=== PATIENT | female | born 1945 | race Caucasian/White ===

== ENCOUNTER 2019-09-28 09:52 | Outpatient (CLI) | payer MEDICARE, SELFPAY ==
--- NOTE | ~2019-09-28 | MMUS_ITS ---
EXAMINATION: MM diagnostic karly LT w jaye, US breast LT complete HISTORY: Six-month follow-up of probably benign left breast masses TECHNIQUE: Additional 3-D tomosynthesis images of the left breast were performed and synthetic 2-D im ages were generated. CAD analysis was submitted and interpreted. High resolution complete left breast ultrasound was performed. COMPARISON: 03/26/2019 bilateral diagnostic digital mammogram and left breast ultrasound examination BREAST PARENCHYMAL COMPOSITION: The breasts are heterogeneously dense, which may obscure small masses . FINDINGS: MAMMOGRAPHIC FINDINGS: There are scattered circumscribed masses measuring up to approximately 7 mm dimension. Occasional benign calcifications. No suspicious mass, architectural distortion, malignant calcification, skin thickening or retraction is evident. No apparent significant mammographic change since 03/19/2019 is noted. No significant new or developin g density is evident. ULTRASOUND: Numerous circumscribed parallel oval hypoechoic and sonolucent lesions are scattered throughout the l eft breast. These include simple cyst, septated cyst and benign-appearing hypoechoic solid lesions. No suspicious mass, vascularity or shadowing is evident. IMPRESSION: 1. No mammographic evidence of malignancy 2. Routine annual mammographic screening is recommended. BI-RADS Category 2: Benign finding(s). Reviewed, dictated and finalized at location A. OGRAPH MACHINE OPERATOR IMPRESSION: 1. No mammographic evidence of malignancy 2. Routine annual mammographic screening is recommended. BI-RADS Category 2: Benign finding(s).
== END 2019-09-28 09:53 | disposition home or self-care (01) ==
PROVIDERS: PCP Family Medicine; Visit Provider Family Medicine
DX: R92.8 Other abnormal and inconclusive findings on diagnostic imaging of breast (principal)
CPT/HCPCS: 76641; 77061; 77065; G0279

== ENCOUNTER 2019-11-02 07:44 | Outpatient (CLI) | payer MEDICARE, SELFPAY ==
[2019-11-02 07:56] LABS: Basophils Absolute Auto 0.03 K/mm3 (0.00-0.10); Basophils Percent Auto 0.4 % (0.0-1.0); Eosinophils Percent Auto 5.3 % (1.0-6.0); Hematocrit 41.8 % (35.0-42.0); Hemoglobin 13.8 g/dL (11.7-13.8); Immature Granulocyte Absolute 0.03 K/mm3 (0.00-0.00); Immature Granulocyte Percent A 0.4 % (0.0-0.0); Lymphocytes Absolute Auto 2.45 K/mm3 (1.10-4.50); Lymphocytes Percent Auto 32.2 % (18.0-42.0); Mean Corpuscular Hemoglobin 30.9 pg (27.0-31.0); Mean Corpuscular Volume 93.5 fL (78.0-102.0); Mean Platelet Volume 11.1 fl (9.2-11.8); Monocytes Absolute Auto 0.79 K/mm3 (0.10-0.90); Monocytes Percent Auto 10.4 % (2.0-11.0); Neutrophils Absolute Auto 3.9 K/mm3 (1.7-7.2); Neutrophils Percent Auto 51.3 % (50.0-70.0); Platelet Count Result 211 K/mm3 (150-420); Red Blood Count 4.47 M/mm3 (4.20-5.40); Red Cell Distribution Width 13.7 % (11.6-14.4); White Blood Count 7.6 K/mm3 (4.8-10.8)
[2019-11-02 08:09] LABS: Hemoglobin A1C 6.7 % (<5.7)
[2019-11-02 08:15] LABS: Creatinine Urine 133.23 mg/dL (40-278)
[2019-11-02 08:16] LABS: MALB Creatinine Ratio 300.2 mg/g (0-30); Microalbumin Urine Random > 400.0 mg/L
[2019-11-02 09:24] LABS: Anion Gap 14.5 mmol/L (7-16); Blood Urea Nitrogen 17 mg/dL (7-18); Calcium 9.2 mg/dL (8.5-10.1); Carbon Dioxide 25 mmol/L (21-32); Chloride 105 mmol/L (98-108); Estimated Glomerular Filt Rate > 60; Free T4 Free Thyroxine 0.87 ng/dL (0.76-1.46); Glucose 110 mg/dL (70-99); Osmolality Calculated 292 mOsm/kg (285-295); Potassium 4.5 mmol/L (3.5-5.1); Sodium 140 mmol/L (136-145); Thyroid Stimulating Hormone 6.63 uIU/mL (0.36-3.74)
[2019-11-06 03:54] LABS: Thyroglobulin 0.4 ng/mL (2.8-40.9); Thyroglobulin Antibodies 625 IU/mL (<=1); Thyroid Peroxidase Antibodies 1093 IU/mL (<9)
== END 2019-11-02 07:45 | disposition home or self-care (01) ==
PROVIDERS: PCP Family Medicine; Visit Provider Family Medicine
DX: R94.6 Abnormal results of thyroid function studies (principal); I10 Essential (primary) hypertension; R73.01 Impaired fasting glucose
CPT/HCPCS: 36415; 80048; 82043; 83036; 84432; 84439; 84443; 85025; 86376; 86800

== ENCOUNTER 2019-11-12 09:55 | Outpatient (CLI) | payer MEDICARE, SELFPAY ==
--- NOTE | ~2019-11-12 | US_ITS ---
EXAMINATION: US retroperitoneal comp DATE: 11/12/2019 11:11 INDICATION: Proteinuria. TECHNIQUE: Multiple ultrasound grayscale images of the kidneys were obtained. COMPARISON: None. FINDINGS: The right kidney measures 11.4 x 6.4 x 6.0 cm. The left kidney measures 12.8 x 5.4 x 6.7 cm. The kidn eys demonstrate normal parenchymal echogenicity. There is no hydronephrosis. The bladder is normal. T here is diffuse hepatic steatosis. IMPRESSION: 1. Normal kidneys. No hydronephrosis. 2. Diffuse hepatic steatosis. Reviewed, dictated and finalized at location A.
[2019-11-12 10:18] LABS: Add Urine Microscopic? YES; Appearance Urine Clear (Clear); Bilirubin Urine Negative (Negative); Blood Urine 1+ (Negative); Color Urine Yellow (Yellow); Glucose Urine UA Negative (Negative); Ketones Urine Negative (Negative); Leukocyte Esterase Ur Negative (Negative); Nitrate Urine Negative (Negative); Protein Urine 1+ (Negative); Specific Grav Ur 1.025 (1.010-1.020); Urobilinogen Urine 0.2 mg/dL (0.2-1.0)
[2019-11-12 10:37] LABS: Bacteria Urine 2+ /hpf; Squamous Epithelial Cell Urine Few /hpf (Few); WBC Urine 0-3 /hpf (0-3)
[2019-11-12 10:47] LABS: Hemoglobin A1C 6.4 % (<5.7)
[2019-11-12 10:52] LABS: Creatinine Urine 75.52 mg/dL (40-278); Total Protein Urine Random 56.5 mg/dL (0.0-11.9)
[2019-11-12 11:00] LABS: MALB Creatinine Ratio 406.6 mg/g (0-30); Microalbumin Urine Random 307.1 mg/L
[2019-11-12 11:04] LABS: CRP 0.2 mg/dL (0.0-0.9); Cholesterol 201 mg/dL (0-200); HDL Direct 67 mg/dL (40-60); LDL Cholesterol Calculated 114 mg/dL (<130); Triglycerides 99 mg/dL (0-150)
[2019-11-12 11:39] LABS: Erythrocyte Sedimentation Rate 21 mm/hr (0-20)
[2019-11-14 09:51] LABS: ANA Cascade Screen Negative (Negative)
[2019-11-14 11:47] LABS: ANCA Screen Negative (Negative)
[2019-11-15 04:42] LABS: Albumin 4.1 g/dL (3.8-4.8); Alpha 1 Globulin 0.3 g/dL (0.2-0.3); Alpha 2 Globulin 0.8 g/dL (0.5-0.9); Beta 1 Globulin 0.5 g/dL (0.4-0.6); Protein, Total 7.1 g/dL (6.1-8.1)
[2019-11-16 19:45] LABS: Anti Glomerular Basement Memb <1.0 AI (<1.0)
[2019-11-16 23:13] LABS: Creatinine, Random Urine 75 mg/dL (20-275); Total Protein/Creatinine Ratio 653 mg/g creat (21-161)
== END 2019-11-12 09:56 | disposition home or self-care (01) ==
LOC: CHSLAB 09:59
PROVIDERS: PCP Family Medicine; Visit Provider Family Medicine
DX: R80.9 Proteinuria, unspecified (principal); I10 Essential (primary) hypertension; R73.01 Impaired fasting glucose
CPT/HCPCS: 36415; 76770; 80061; 81001; 82043; 82570; 83036; 83520; 84155; 84156; 84165; 84166; 85652; 86021; 86038; 86140

== ENCOUNTER 2020-04-20 08:17 | Outpatient (CLI) | payer MEDICARE, SELFPAY ==
[2020-04-20 08:35] LABS: Basophils Absolute Auto 0.03 K/mm3 (0.00-0.10); Basophils Percent Auto 0.4 % (0.0-1.0); Eosinophils Absolute Auto 0.32 K/mm3 (0.02-0.50); Eosinophils Percent Auto 3.9 % (1.0-6.0); Hematocrit 46.1 % (35.0-42.0); Hemoglobin 14.8 g/dL (11.7-13.8); Immature Granulocyte Absolute 0.02 K/mm3 (0.00-0.00); Immature Granulocyte Percent A 0.2 % (0.0-0.0); Lymphocytes Absolute Auto 2.36 K/mm3 (1.10-4.50); Lymphocytes Percent Auto 28.7 % (18.0-42.0); Mean Corpuscular HGB Conc 32.1 g/dL (32.0-36.0); Mean Corpuscular Hemoglobin 30.3 pg (27.0-31.0); Mean Corpuscular Volume 94.5 fL (78.0-102.0); Mean Platelet Volume 10.9 fl (9.2-11.8); Monocytes Absolute Auto 0.81 K/mm3 (0.10-0.90); Monocytes Percent Auto 9.9 % (2.0-11.0); Neutrophils Absolute Auto 4.7 K/mm3 (1.7-7.2); Neutrophils Percent Auto 56.9 % (50.0-70.0); Platelet Count Result 262 K/mm3 (150-420); Red Blood Count 4.88 M/mm3 (4.20-5.40); Red Cell Distribution Width 13.8 % (11.6-14.4); White Blood Count 8.2 K/mm3 (4.8-10.8)
[2020-04-20 08:47] LABS: Hemoglobin A1C 6.1 % (<5.7)
[2020-04-20 09:22] LABS: Add Urine Microscopic? YES; Appearance Urine Clear (Clear); Bilirubin Urine Negative (Negative); Blood Urine Negative (Negative); Color Urine Yellow (Yellow); Glucose Urine UA Negative (Negative); Ketones Urine Negative (Negative); Leukocyte Esterase Ur Negative (Negative); Nitrate Urine Negative (Negative); Protein Urine 2+ (Negative); Specific Grav Ur 1.025 (1.010-1.020); Urobilinogen Urine 0.2 mg/dL (0.2-1.0); pH Urine 5.5 (5.0-8.0)
[2020-04-20 09:27] LABS: Bacteria Urine 2+ /hpf; Mucus Urine Few /lpf; RBC Urine 0-2 /hpf (0-2); Squamous Epithelial Cell Urine Moderate /hpf (Few); WBC Urine 0-3 /hpf (0-3)
[2020-04-20 10:11] LABS: Alanine Aminotransferase 27 U/L (14-59); Albumin Level 3.8 g/dL (3.4-5.0); Alkaline Phosphatase 87 U/L (46-116); Anion Gap 6 mmol/L (8-16); Aspartate Amino Transferase 14 U/L (15-37); Bilirubin Direct 0.1 mg/dL (0-0.2); Bilirubin,Total 0.4 mg/dL (0.00-1.00); Blood Urea Nitrogen 16 mg/dL (7-18); Calcium 9.1 mg/dL (8.5-10.1); Carbon Dioxide 28 mmol/L (21-32); Chloride 104 mmol/L (98-108); Estimated Glomerular Filt Rate > 60; Free T4 Free Thyroxine 1.34 ng/dL (0.76-1.46); Glucose 123 mg/dL (70-99); Osmolality Calculated 288 mOsm/kg (285-295); Potassium 4.3 mmol/L (3.5-5.1); Sodium 138 mmol/L (136-145); Total Protein 7.2 g/dL (6.4-8.2)
[2020-04-20 10:13] LABS: Microalbumin Urine Random > 400.0 mg/L
[2020-04-20 10:14] LABS: Creatinine Urine 193.67 mg/dL (40-278); MALB Creatinine Ratio 206.5 mg/g (0-30); Total Protein Urine Random 89.9 mg/dL (0.0-11.9)
== END 2020-04-20 08:18 | disposition home or self-care (01) ==
PROVIDERS: PCP Family Medicine
DX: R94.6 Abnormal results of thyroid function studies (principal); E03.9 Hypothyroidism, unspecified; I12.9 Hypertensive chronic kidney disease with stage 1 through stage 4 chronic kidney disease, or unspecified chronic kidney disease; N18.3 Chronic kidney disease, stage 3 (moderate); R80.1 Persistent proteinuria, unspecified; K76.0 Fatty (change of) liver, not elsewhere classified; R73.03 Prediabetes
CPT/HCPCS: 36415; 80048; 80076; 81001; 82043; 82570; 83036; 84156; 84439; 84443; 85025

== ENCOUNTER 2020-09-27 12:45 | Outpatient (CLI) | payer MEDICARE, SELFPAY | END 2020-09-27 12:46 | disposition home or self-care (01) | LOC: CHSLAB 12:48 | PROVIDERS: PCP Family Medicine; Visit Provider Specialist | DX: C44.729 Squamous cell carcinoma of skin of left lower limb, including hip (principal) | CPT/HCPCS: 88305 ==

== ENCOUNTER 2020-10-07 08:43 | Outpatient (CLI) | payer MEDICARE, SELFPAY ==
[2020-10-07 09:13] LABS: Basophils Absolute Auto 0.02 K/mm3 (0.00-0.10); Basophils Percent Auto 0.2 % (0.0-1.0); Eosinophils Absolute Auto 0.31 K/mm3 (0.02-0.50); Eosinophils Percent Auto 3.8 % (1.0-6.0); Hematocrit 44.9 % (35.0-42.0); Hemoglobin 14.3 g/dL (11.7-13.8); Immature Granulocyte Absolute 0.02 K/mm3 (0.00-0.00); Immature Granulocyte Percent A 0.2 % (0.0-0.0); Lymphocytes Absolute Auto 2.49 K/mm3 (1.10-4.50); Lymphocytes Percent Auto 30.8 % (18.0-42.0); Mean Corpuscular HGB Conc 31.8 g/dL (32.0-36.0); Mean Corpuscular Hemoglobin 29.9 pg (27.0-31.0); Mean Corpuscular Volume 93.7 fL (78.0-102.0); Mean Platelet Volume 10.9 fl (9.2-11.8); Monocytes Absolute Auto 0.73 K/mm3 (0.10-0.90); Neutrophils Absolute Auto 4.5 K/mm3 (1.7-7.2); Platelet Count Result 238 K/mm3 (150-420); Red Blood Count 4.79 M/mm3 (4.20-5.40); Red Cell Distribution Width 13.6 % (11.6-14.4); White Blood Count 8.1 K/mm3 (4.8-10.8)
[2020-10-07 09:22] LABS: Hemoglobin A1C 6.4 % (<5.7)
[2020-10-07 09:56] LABS: Alanine Aminotransferase 31 U/L (14-59); Albumin Level 3.7 g/dL (3.4-5.0); Alkaline Phosphatase 92 U/L (46-116); Anion Gap 8 mmol/L (8-16); Aspartate Amino Transferase 17 U/L (15-37); Bilirubin,Total 0.5 mg/dL (0.00-1.00); Blood Urea Nitrogen 20 mg/dL (7-18); Calcium 9.4 mg/dL (8.5-10.1); Carbon Dioxide 27 mmol/L (21-32); Chloride 103 mmol/L (98-108); Cholesterol 194 mg/dL (0-200); Estimated Glomerular Filt Rate > 60; Glucose 120 mg/dL (70-99); HDL Direct 68 mg/dL (40-60); LDL Cholesterol Calculated 105 mg/dL (<130); Osmolality Calculated 289 mOsm/kg (285-295); Phosphorus 3.8 mg/dL (2.6-4.7); Potassium 4.6 mmol/L (3.5-5.1); Sodium 138 mmol/L (136-145); Thyroid Stimulating Hormone 1.13 uIU/mL (0.36-3.74); Triglycerides 103 mg/dL (0-150)
[2020-10-07 10:54] LABS: Creatinine Urine 109.46 mg/dL (40-278); Total Protein Urine Random 66.3 mg/dL (0.0-11.9); Ur Ttl Prot Creatinine Ratio 0.61 mg/mg (0-0.20)
== END 2020-10-07 08:44 | disposition home or self-care (01) ==
LOC: CHSLAB 08:46
PROVIDERS: PCP Family Medicine; Visit Provider Internal Medicine Nephrology
DX: R73.01 Impaired fasting glucose (principal); E78.2 Mixed hyperlipidemia; I10 Essential (primary) hypertension; E03.9 Hypothyroidism, unspecified; R80.9 Proteinuria, unspecified
CPT/HCPCS: 36415; 80053; 80061; 82570; 83036; 84100; 84156; 84443; 85025

== ENCOUNTER 2020-10-21 09:18 | Outpatient (CLI) | payer MEDICARE, SELFPAY ==
--- NOTE | ~2020-10-21 | CT_ITS ---
EXAMINATION: CT lung screening DATE: 10/21/2020 09:47 INDICATION: History of tobacco dependence TECHNIQUE: Computed tomography (CT) of the chest was performed without intravenous contrast. The dose -length product was 160.93 mGy-cm. Automated exposure control and iterative reconstruction technique were employed. COMPARISON: CT dated 12/18/2018 FINDINGS: Heart size is normal. Mild atherosclerosis no lymphadenopathy. Small hiatal hernia. No sign ificant pleural or pericardial effusion. The upper abdomen is unremarkable. Small hiatal hernia. Ther e are multiple small pulmonary nodules predominantly in the upper lobe, largest measuring 4 mm, uncha nged. There is a stable 6 mm fissural nodule in the right, likely benign lymph node. There is mild th oracic spondylosis. Accentuated thoracic kyphosis. IMPRESSION: 1. Lung-RADS category 2: Benign appearance or behavior. Continue annual screening with noncontrast lo w-dose chest CT in 12 months. Reviewed, dictated and finalized at location B. IMPRESSION: 1. Lung-RADS category 2: Benign appearance or behavior. Continue annual screeni ng with noncontrast low-dose chest CT in 12 months.
== END 2020-10-21 09:19 | disposition home or self-care (01) ==
LOC: CHSIMG 09:19
PROVIDERS: PCP Family Medicine; Visit Provider Family Medicine
DX: Z12.2 Encounter for screening for malignant neoplasm of respiratory organs (principal); Z87.891 Personal history of nicotine dependence
CPT/HCPCS: 71271

== ENCOUNTER 2020-11-03 08:40 | Outpatient (CLI) | payer MEDICARE, SELFPAY ==
--- NOTE | ~2020-11-03 | MM_ITS ---
EXAMINATION: MM screening [facility] BI w jaye HISTORY: Screening mammogram TECHNIQUE: Craniocaudal and mediolateral oblique 3-D tomosynthesis images were obtained and synthetic 2-D images were generated. CAD analysis was submitted and interpreted. COMPARISON: 09/28/2019 diagnostic left digital mammogram and complete left breast ultrasound 03/26/2019 bilateral diagnostic digital mammogram and left breast ultrasound 03/19/2019, 03/18/2018 bilateral digital screening mammogram BREAST PARENCHYMAL COMPOSITION: There are scattered areas of fibroglandular density. FINDINGS: There are scattered bilateral benign calcifications. There is no evidence of suspicious mas s, calcification, or architectural distortion to suggest malignancy in either breast. There has been no suspicious interval change. IMPRESSION: 1. No mammographic evidence of malignancy. 2. Recommend routine screening mammography in one year. BI-RADS Category 2: Benign finding(s). Reviewed, dictated and finalized at location A.
== END 2020-11-03 08:41 | disposition home or self-care (01) ==
LOC: CHSIMG 08:41
PROVIDERS: PCP Family Medicine; Visit Provider Family Medicine
DX: Z12.31 Encounter for screening mammogram for malignant neoplasm of breast (principal)
CPT/HCPCS: 77063; 77067

== ENCOUNTER 2021-04-10 08:11 | Outpatient (CLI) | payer MEDICARE, SELFPAY ==
[2021-04-10 08:40] LABS: Basophils Absolute Auto 0.03 K/mm3 (0.00-0.10); Basophils Percent Auto 0.4 % (0.0-1.0); Eosinophils Absolute Auto 0.25 K/mm3 (0.02-0.50); Eosinophils Percent Auto 3.1 % (1.0-6.0); Hematocrit 43.6 % (35.0-42.0); Hemoglobin 14.3 g/dL (11.7-13.8); Immature Granulocyte Absolute 0.03 K/mm3 (0.00-0.00); Immature Granulocyte Percent A 0.4 % (0.0-0.0); Lymphocytes Absolute Auto 2.26 K/mm3 (1.10-4.50); Lymphocytes Percent Auto 28.3 % (18.0-42.0); Mean Corpuscular HGB Conc 32.8 g/dL (32.0-36.0); Mean Corpuscular Hemoglobin 30.4 pg (27.0-31.0); Mean Corpuscular Volume 92.6 fL (78.0-102.0); Mean Platelet Volume 10.9 fl (9.2-11.8); Monocytes Absolute Auto 0.73 K/mm3 (0.10-0.90); Monocytes Percent Auto 9.1 % (2.0-11.0); Neutrophils Absolute Auto 4.7 K/mm3 (1.7-7.2); Neutrophils Percent Auto 58.7 % (50.0-70.0); Platelet Count Result 216 K/mm3 (150-420); Red Blood Count 4.71 M/mm3 (4.20-5.40); Red Cell Distribution Width 14.1 % (11.6-14.4)
[2021-04-10 09:08] LABS: Albumin Level 3.6 g/dL (3.4-5.0); Anion Gap 10 mmol/L (8-16); Blood Urea Nitrogen 18 mg/dL (7-18); Carbon Dioxide 26 mmol/L (21-32); Chloride 105 mmol/L (98-108); Estimated Glomerular Filt Rate > 60; Glucose 123 mg/dL (70-99); Osmolality Calculated 294 mOsm/kg (285-295); Phosphorus 3.5 mg/dL (2.6-4.7); Potassium 4.3 mmol/L (3.5-5.1); Sodium 141 mmol/L (136-145)
[2021-04-10 09:09] LABS: Total Protein Urine Random 66.7 mg/dL (0.0-11.9); Ur Ttl Prot Creatinine Ratio 0.44 mg/mg (0-0.20)
== END 2021-04-10 08:12 | disposition home or self-care (01) ==
LOC: CHSLAB 08:14
PROVIDERS: PCP Family Medicine; Visit Provider Internal Medicine Nephrology
DX: R80.9 Proteinuria, unspecified (principal); I10 Essential (primary) hypertension
CPT/HCPCS: 36415; 80069; 82570; 84156; 85025

== ENCOUNTER 2021-06-06 09:59 | Outpatient (CLI) | payer MEDICARE, SELFPAY ==
--- NOTE | ~2021-06-06 | XR_ITS ---
EXAMINATION: XR hip LT min 2V DATE: 06/06/2021 13:24 INDICATION: Low back pain and right hip pain. TECHNIQUE: 2 views of left hip were obtained. COMPARISON: None. FINDINGS: Bone alignment is normal. No fracture. There is a 2.7 cm sclerotic lesion in left femoral n lizzy in a pattern of chondroid matrix. There is moderate left hip osteoarthritis. Osteitis pubis is no jakob. There are surgical clips in the pelvis. IMPRESSION: 1. Moderate left hip osteoarthritis. 2. 2.7 cm sclerotic lesion in left femoral neck, most likely an enchondroma. Reviewed, dictated and finalized at location A. INE HOSTLER
--- NOTE | ~2021-06-06 | XR_ITS ---
XR hip RT min 2V 06/06/2021 15:02 Indication: Right hip pain Procedure: 2 views right hip Comparison: No prior studies for comparison. Findings: There is mild osteoarthritis of the right hip. No fracture, subluxation or dislocation. No significant soft tissue abnormality. There are surgical changes in the pelvis. There is mild osteitis pubis. Sacral foramen are symmetric. Impression: 1: Mild osteoarthritis of the right hip. Reviewed, dictated and finalized at location A. ER Impression: 1: Mild osteoarthritis of the right hip.
--- NOTE | ~2021-06-06 | XR_ITS ---
EXAMINATION: XR lumbar spine 2-3V DATE: 06/06/2021 10:32 INDICATION: Low back pain TECHNIQUE: Anteroposterior and lateral views of the lumbar spine, and cone-down lateral view of the l umbosacral junction were obtained. COMPARISON: 07/02/2011 FINDINGS: The vertebral body heights and alignment are normal. There is no fracture. There is severe loss of intervertebral disc space height throughout the lumbar spine with interval worsening since th e comparison examination. Severe facet osteoarthritis is present in the lower lumbar spine. Small deg enerative osteophytes project from the anterior endplates of multiple vertebral bodies. Calcified ath erosclerosis is noted. There are surgical changes in the pelvis and right upper quadrant. IMPRESSION: 1. Severe lumbar spondylosis with slight interval worsening. Reviewed, dictated and finalized at location B. TROMECHANICAL ASSEMBLY TECHNICIAN
== END 2021-06-06 10:00 | disposition home or self-care (01) ==
LOC: CHSLAB 10:00
PROVIDERS: PCP Family Medicine; Visit Provider Family Medicine
DX: M25.551 Pain in right hip (principal); M54.50 Low back pain, unspecified
CPT/HCPCS: 72100; 73502

== ENCOUNTER 2021-06-13 09:55 | Outpatient (CLI) | payer MEDICARE, SELFPAY ==
--- NOTE | ~2021-06-13 | MR_ITS ---
EXAMINATION: MR lumbar spine wo con DATE: 06/13/2021 11:37 INDICATION: Low back pain. TECHNIQUE: Magnetic resonance imaging (MRI) of the lumbar spine was performed without intravenous con trast. Sequences included sagittal T2-weighted FSE, sagittal T2-weighted FS FSE, sagittal T1-weighted FSE, and axial T2-weighted FSE. COMPARISON: Lumbar spine radiographs 06/06/2021 FINDINGS: There is 9 degrees levocurvature of thoracolumbar spine. There is 3 mm retrolisthesis of T1 2 on L1 and 3 mm anterolisthesis of L5 on S1. Vertebral body heights are normal. There is severely de creased disc height from T12-L1 through L4-L5 and moderately decreased disc height at L5-S1. There is ligamentum flavum hypertrophy at the disc levels in lumbar spine. The distal spinal cord signal inte nsity is normal. The conus medullaris is at L1. The following disc levels are specifically discussed: T12-L1: The disc is bulging. There is mild bilateral facet joint osteoarthritis. There is moderate ri ght and mild left neural foraminal stenosis. There is mild central canal stenosis. L1-L2: The disc is bulging and has an annular fissure. There is moderate bilateral facet joint osteoa rthritis. There is moderate right and mild left neural foraminal stenosis. There is mild central krishna l stenosis. L2-L3: The disc is bulging and has an annular fissure. There is moderate bilateral facet joint osteoa rthritis. There is mild right and moderate left neural foraminal stenosis. There is mild central krishna l stenosis. L3-L4: The disc is bulging and has an annular fissure. There is severe bilateral facet joint osteoart hritis. There is mild right and moderate left neural foraminal stenosis. There is mild central canal stenosis. There is moderate stenosis of left lateral recess. L4-L5: The disc is bulging and has an annular fissure. There is severe bilateral facet joint osteoart hritis. There is moderate bilateral neural foraminal stenosis. There is moderate central canal stenos is. L5-S1: The disc is bulging. There is severe bilateral facet joint osteoarthritis. There is mild bilat eral neural foraminal stenosis. There is mild central canal stenosis. IMPRESSION: 1. Severe lumbar spondylosis. Reviewed, dictated and finalized at location A. T MAIL CLERK
== END 2021-06-13 09:56 | disposition home or self-care (01) ==
LOC: CHSIMG 09:56
PROVIDERS: PCP Family Medicine; Visit Provider Family Medicine
DX: M54.50 Low back pain, unspecified (principal); M47.816 Spondylosis without myelopathy or radiculopathy, lumbar region
CPT/HCPCS: 72148

== ENCOUNTER 2021-10-16 08:29 | Outpatient (CLI) | payer MEDICARE, SELFPAY ==
[2021-10-16 08:49] LABS: Basophils Absolute Auto 0.02 K/mm3 (0.00-0.10); Basophils Percent Auto 0.3 % (0.0-1.0); Eosinophils Absolute Auto 0.34 K/mm3 (0.02-0.50); Eosinophils Percent Auto 5.3 % (1.0-6.0); Hematocrit 45.5 % (35.0-42.0); Hemoglobin 14.8 g/dL (11.7-13.8); Immature Granulocyte Absolute 0.01 K/mm3 (0.00-0.00); Immature Granulocyte Percent A 0.2 % (0.0-0.0); Lymphocytes Absolute Auto 2.23 K/mm3 (1.10-4.50); Lymphocytes Percent Auto 34.5 % (18.0-42.0); Mean Corpuscular HGB Conc 32.5 g/dL (32.0-36.0); Mean Corpuscular Volume 95.4 fL (78.0-102.0); Mean Platelet Volume 10.6 fl (9.2-11.8); Monocytes Absolute Auto 0.69 K/mm3 (0.10-0.90); Monocytes Percent Auto 10.7 % (2.0-11.0); Neutrophils Absolute Auto 3.2 K/mm3 (1.7-7.2); Platelet Count Result 241 K/mm3 (150-420); Red Blood Count 4.77 M/mm3 (4.20-5.40); Red Cell Distribution Width 13.5 % (11.6-14.4); White Blood Count 6.5 K/mm3 (4.8-10.8)
[2021-10-16 09:51] LABS: Alanine Aminotransferase 30 U/L (14-59); Albumin Level 3.6 g/dL (3.4-5.0); Alkaline Phosphatase 78 U/L (46-116); Anion Gap 7 mmol/L (8-16); Aspartate Amino Transferase 18 U/L (15-37); Bilirubin,Total 0.4 mg/dL (0.00-1.00); Blood Urea Nitrogen 17 mg/dL (7-18); Calcium 9.2 mg/dL (8.5-10.1); Carbon Dioxide 29 mmol/L (21-32); Chloride 100 mmol/L (98-108); Cholesterol 188 mg/dL (0-200); Creatine Kinase 83 U/L (26-192); Estimated Glomerular Filt Rate > 60; Glucose 123 mg/dL (70-99); HDL Direct 63 mg/dL (40-60); LDL Cholesterol Calculated 105 mg/dL (<130); Osmolality Calculated 284 mOsm/kg (285-295); Potassium 4.6 mmol/L (3.5-5.1); Sodium 136 mmol/L (136-145); Thyroid Stimulating Hormone 1.92 uIU/mL (0.36-3.74); Total Protein 6.9 g/dL (6.4-8.2); Triglycerides 101 mg/dL (0-150)
== END 2021-10-16 08:30 | disposition home or self-care (01) ==
LOC: CHSLAB 08:31
PROVIDERS: PCP Family Medicine; Visit Provider Family Medicine
DX: E78.2 Mixed hyperlipidemia (principal); I10 Essential (primary) hypertension
CPT/HCPCS: 36415; 80053; 80061; 82550; 84443; 85025

== ENCOUNTER 2021-11-06 08:27 | Outpatient (CLI) | payer MEDICARE, SELFPAY ==
--- NOTE | ~2021-11-06 | MM_ITS ---
EXAMINATION: MM screening karly BI w jaye HISTORY: Screening mammogram TECHNIQUE: Craniocaudal and mediolateral oblique 3-D tomosynthesis images were obtained and synthetic 2-D images were generated. CAD analysis was submitted and interpreted. COMPARISON: bilateral screening mammogram 09/28/2019 diagnostic left mammogram and complete left breast ultrasound 03/26/2019 bilateral diagnostic mammography and limited left breast ultrasound 03/19/2019 bilateral screening mammogram BREAST PARENCHYMAL COMPOSITION: There are scattered areas of fibroglandular density. FINDINGS: Scattered bilateral benign calcifications are again noted. There is no evidence of suspicio us mass, calcification, or architectural distortion to suggest malignancy in either breast. There has been no suspicious interval change. IMPRESSION: 1. No mammographic evidence of malignancy. 2. Recommend routine screening mammography in one year. BI-RADS Category 2: Benign finding(s). Reviewed, dictated and finalized at location A.
== END 2021-11-06 08:28 | disposition home or self-care (01) ==
LOC: CHSIMG 08:28
PROVIDERS: PCP Family Medicine; Visit Provider Family Medicine
DX: Z12.31 Encounter for screening mammogram for malignant neoplasm of breast (principal)
CPT/HCPCS: 77063; 77067

== ENCOUNTER 2022-02-07 08:20 | Outpatient (CLI) | payer MEDICARE, SELFPAY ==
[2022-02-07 08:45] LABS: Basophils Absolute Auto 0.03 K/mm3 (0.00-0.10); Basophils Percent Auto 0.4 % (0.0-1.0); Eosinophils Absolute Auto 0.34 K/mm3 (0.02-0.50); Eosinophils Percent Auto 4.9 % (1.0-6.0); Hematocrit 42.6 % (35.0-42.0); Hemoglobin 14.2 g/dL (11.7-13.8); Immature Granulocyte Absolute 0.02 K/mm3 (0.00-0.00); Immature Granulocyte Percent A 0.3 % (0.0-0.0); Lymphocytes Absolute Auto 2.16 K/mm3 (1.10-4.50); Lymphocytes Percent Auto 30.9 % (18.0-42.0); Mean Corpuscular HGB Conc 33.3 g/dL (32.0-36.0); Mean Corpuscular Hemoglobin 31.8 pg (27.0-31.0); Mean Corpuscular Volume 95.5 fL (78.0-102.0); Mean Platelet Volume 10.7 fl (9.2-11.8); Monocytes Absolute Auto 0.51 K/mm3 (0.10-0.90); Monocytes Percent Auto 7.3 % (2.0-11.0); Neutrophils Absolute Auto 3.9 K/mm3 (1.7-7.2); Neutrophils Percent Auto 56.2 % (50.0-70.0); Platelet Count Result 227 K/mm3 (150-420); Red Blood Count 4.46 M/mm3 (4.20-5.40); Red Cell Distribution Width 13.3 % (11.6-14.4)
[2022-02-07 09:02] LABS: Albumin Level 3.3 g/dL (3.4-5.0); Anion Gap 7 mmol/L (8-16); Blood Urea Nitrogen 14 mg/dL (7-18); Calcium 9.1 mg/dL (8.5-10.1); Carbon Dioxide 26 mmol/L (21-32); Chloride 105 mmol/L (98-108); Estimated Glomerular Filt Rate > 60; Glucose 147 mg/dL (70-99); Osmolality Calculated 289 mOsm/kg (285-295); Phosphorus 3.3 mg/dL (2.6-4.7); Potassium 3.8 mmol/L (3.5-5.1); Sodium 138 mmol/L (136-145)
[2022-02-07 09:10] LABS: Creatinine Urine 41.16 mg/dL (40-278); Ur Ttl Prot Creatinine Ratio 0.51 mg/mg (0-0.20)
[2022-02-08 10:12] LABS: Hemoglobin A1C 6.2 % (<5.7)
== END 2022-02-07 08:21 | disposition home or self-care (01) ==
PROVIDERS: PCP Family Medicine
DX: N18.1 Chronic kidney disease, stage 1 (principal); R73.01 Impaired fasting glucose
CPT/HCPCS: 36415; 80069; 82570; 83036; 84156; 85025

== ENCOUNTER 2022-03-15 09:31 | Outpatient (CLI) | payer MEDICARE, SELFPAY ==
[2022-03-15 09:53] LABS: Add Urine Microscopic? YES; Appearance Urine Clear (Clear); Bilirubin Urine Negative (Negative); Blood Urine Negative (Negative); Color Urine Light Yellow (Yellow); Glucose Urine UA Negative (Negative); Ketones Urine Negative (Negative); Leukocyte Esterase Ur Negative (Negative); Nitrate Urine Negative (Negative); Protein Urine Trace (Negative); Specific Grav Ur 1.025 (1.010-1.020); Urobilinogen Urine 0.2 mg/dL (0.2-1.0); pH Urine 5.5 (5.0-8.0)
[2022-03-15 09:57] LABS: RBC Urine None seen /hpf (0-2); Squamous Epithelial Cell Urine Moderate /hpf (Few); WBC Urine None seen /hpf (0-3)
[2022-03-15 09:58] LABS: Bacteria Urine Trace /hpf; Creatinine Urine 80.52 mg/dL (40-278); Total Protein Urine Random 35.6 mg/dL (0.0-11.9); Ur Ttl Prot Creatinine Ratio 0.44 mg/mg (0-0.20)
== END 2022-03-15 09:32 | disposition home or self-care (01) ==
LOC: CHSLAB 09:37
PROVIDERS: PCP Family Medicine
DX: R80.9 Proteinuria, unspecified (principal)
CPT/HCPCS: 81001; 82570; 84156

== ENCOUNTER 2022-04-16 08:17 | Outpatient (CLI) | payer MEDICARE, SELFPAY ==
[2022-04-16 08:40] LABS: Basophils Absolute Auto 0.04 K/mm3 (0.00-0.10); Basophils Percent Auto 0.6 % (0.0-1.0); Eosinophils Absolute Auto 0.32 K/mm3 (0.02-0.50); Eosinophils Percent Auto 4.4 % (1.0-6.0); Hematocrit 43.6 % (35.0-42.0); Hemoglobin 14.5 g/dL (11.7-13.8); Immature Granulocyte Absolute 0.01 K/mm3 (0.00-0.00); Immature Granulocyte Percent A 0.1 % (0.0-0.0); Lymphocytes Absolute Auto 2.49 K/mm3 (1.10-4.50); Lymphocytes Percent Auto 34.3 % (18.0-42.0); Mean Corpuscular HGB Conc 33.3 g/dL (32.0-36.0); Mean Corpuscular Hemoglobin 31.7 pg (27.0-31.0); Mean Corpuscular Volume 95.4 fL (78.0-102.0); Mean Platelet Volume 10.2 fl (9.2-11.8); Monocytes Absolute Auto 0.69 K/mm3 (0.10-0.90); Monocytes Percent Auto 9.5 % (2.0-11.0); Neutrophils Absolute Auto 3.7 K/mm3 (1.7-7.2); Neutrophils Percent Auto 51.1 % (50.0-70.0); Platelet Count Result 223 K/mm3 (150-420); Red Blood Count 4.57 M/mm3 (4.20-5.40); Red Cell Distribution Width 13.4 % (11.6-14.4); White Blood Count 7.3 K/mm3 (4.8-10.8)
[2022-04-16 09:19] LABS: Anion Gap 6 mmol/L (8-16); Blood Urea Nitrogen 16 mg/dL (7-18); Calcium 9.3 mg/dL (8.5-10.1); Carbon Dioxide 29 mmol/L (21-32); Chloride 102 mmol/L (98-108); Cholesterol 208 mg/dL (0-200); Estimated Glomerular Filt Rate > 60; Glucose 120 mg/dL (70-99); HDL Direct 65 mg/dL (40-60); LDL Cholesterol Calculated 124 mg/dL (<130); Osmolality Calculated 286 mOsm/kg (285-295); Potassium 4.4 mmol/L (3.5-5.1); Sodium 137 mmol/L (136-145); Triglycerides 97 mg/dL (0-150)
[2022-04-16 09:24] LABS: Add Urine Microscopic? YES; Appearance Urine Clear (Clear); Bilirubin Urine Negative (Negative); Blood Urine Negative (Negative); Color Urine Light Yellow (Yellow); Glucose Urine UA Negative (Negative); Ketones Urine Negative (Negative); Leukocyte Esterase Ur Negative (Negative); Nitrate Urine Negative (Negative); Protein Urine Trace (Negative); Specific Grav Ur 1.015 (1.010-1.020); Urobilinogen Urine 0.2 mg/dL (0.2-1.0)
[2022-04-16 09:33] LABS: RBC Urine None seen /hpf (0-2); WBC Urine None seen /hpf (0-3)
[2022-04-16 09:34] LABS: Bacteria Urine 1+ /hpf; Squamous Epithelial Cell Urine Occasional /hpf (Few)
[2022-04-16 09:38] LABS: Creatinine Urine 75.16 mg/dL (40-278); Total Protein Urine Random 30.2 mg/dL (0.0-11.9)
== END 2022-04-16 08:18 | disposition home or self-care (01) ==
LOC: CHSLAB 08:28
PROVIDERS: PCP Family Medicine; Visit Provider Family Medicine
DX: E78.2 Mixed hyperlipidemia (principal); I10 Essential (primary) hypertension; R80.9 Proteinuria, unspecified
CPT/HCPCS: 36415; 80048; 80061; 81001; 82570; 84156; 85025

== ENCOUNTER 2022-05-01 08:52 | Outpatient (CLI) | payer MEDICARE, SELFPAY ==
--- NOTE | ~2022-05-01 | CT_ITS ---
EXAMINATION: CT lung screening DATE: 05/01/2022 09:19 INDICATION: History of tobacco dependence. COPD. TECHNIQUE: Computed tomography (CT) of the chest was performed without intravenous contrast. The dose -length product was 169.04 mGy-cm. Automated exposure control and iterative reconstruction technique were employed. COMPARISON: CT dated 10/21/2020 and 12/18/2018 FINDINGS: No significant pleural or pericardial effusion. Heart size normal. There is atherosclerosis of the aorta and coronary arteries. No significant pleural or pericardial effusion. Stable low-densi ty 1.8 cm left adrenal nodule, likely benign adenoma. Stable 6 mm fissural nodule on the right, image 56. Stable small upper lobe nodules measuring 4 mm or less. There are a few small scattered calcifie d granulomas of the lungs. Stable 4 mm fissural nodule on the right, image 66. No new pulmonary nodul es or masses. Moderate thoracic spondylosis with accentuated kyphosis. No peripheral consolidation. N o endobronchial lesions. No pneumothorax. IMPRESSION: 1. Lung-RADS category 2: Benign appearance or behavior. Continue annual screening with noncontrast lo w-dose chest CT in 12 months. Reviewed, dictated and finalized at location A. IMPRESSION: 1. Lung-RADS category 2: Benign appearance or behavior. Continue annual screeni ng with noncontrast low-dose chest CT in 12 months.
== END 2022-05-01 08:53 | disposition home or self-care (01) ==
LOC: CHSIMG 08:53
PROVIDERS: PCP Family Medicine; Visit Provider Family Medicine
DX: Z12.2 Encounter for screening for malignant neoplasm of respiratory organs (principal); Z87.891 Personal history of nicotine dependence
CPT/HCPCS: 71271

== ENCOUNTER 2022-05-24 10:06 | Outpatient (CLI) | payer MEDICARE, SELFPAY ==
[2022-05-24 10:23] LABS: Appearance Urine Clear (Clear); Bilirubin Urine Negative (Negative); Blood Urine Negative (Negative); Glucose Urine UA Negative (Negative); Ketones Urine Negative (Negative); Leukocyte Esterase Ur Negative (Negative); Nitrate Urine Negative (Negative); Protein Urine Negative (Negative); Urobilinogen Urine 0.2 mg/dL (0.2-1.0)
[2022-05-24 10:25] LABS: Add Urine Microscopic? NO; Color Urine Light Yellow (Yellow)
[2022-05-24 10:30] LABS: Creatinine Urine 26.82 mg/dL (40-278); Total Protein Urine Random 13.5 mg/dL (0.0-11.9)
== END 2022-05-24 10:07 | disposition home or self-care (01) ==
LOC: CHSLAB 10:09
PROVIDERS: PCP Family Medicine
DX: R80.9 Proteinuria, unspecified (principal); N18.1 Chronic kidney disease, stage 1; I12.9 Hypertensive chronic kidney disease with stage 1 through stage 4 chronic kidney disease, or unspecified chronic kidney disease
CPT/HCPCS: 81003; 82570; 84156

== ENCOUNTER 2022-11-12 08:23 | Outpatient (CLI) | payer MEDICARE, SELFPAY ==
--- NOTE | ~2022-11-12 | MM_ITS ---
EXAMINATION: MM screening karly BI w jaye HISTORY: Screening mammogram TECHNIQUE: Craniocaudal and mediolateral oblique 3-D tomosynthesis images were obtained and synthetic 2-D images were generated. CAD analysis was submitted and interpreted. COMPARISON: 11/06/2021, 11/03/2020 bilateral screening mammogram examinations 09/28/2019 diagnostic left mammogram and complete left breast ultrasound 03/19/2019 bilateral screening mammogram BREAST PARENCHYMAL COMPOSITION: There are scattered areas of fibroglandular density. FINDINGS: Scattered bilateral benign calcifications. There is no evidence of suspicious mass, calcifi cation, or architectural distortion to suggest malignancy in either breast. There has been no suspici ous interval change. IMPRESSION: 1. No mammographic evidence of malignancy. 2. Recommend routine screening mammography in one year. BI-RADS Category 2: Benign finding(s). Reviewed, dictated and finalized at location B.
[2022-11-12 08:58] LABS: Basophils Absolute Auto 0.02 K/mm3 (0.00-0.10); Basophils Percent Auto 0.2 % (0.0-1.0); Eosinophils Absolute Auto 0.32 K/mm3 (0.02-0.50); Eosinophils Percent Auto 3.7 % (1.0-6.0); Hematocrit 43.4 % (35.0-42.0); Hemoglobin 14.2 g/dL (11.7-13.8); Immature Granulocyte Absolute 0.02 K/mm3 (0.00-0.00); Immature Granulocyte Percent A 0.2 % (0.0-0.0); Lymphocytes Absolute Auto 2.05 K/mm3 (1.10-4.50); Lymphocytes Percent Auto 23.9 % (18.0-42.0); Mean Corpuscular HGB Conc 32.7 g/dL (32.0-36.0); Mean Corpuscular Hemoglobin 30.9 pg (27.0-31.0); Mean Corpuscular Volume 94.6 fL (78.0-102.0); Mean Platelet Volume 10.6 fl (9.2-11.8); Monocytes Absolute Auto 0.66 K/mm3 (0.10-0.90); Monocytes Percent Auto 7.7 % (2.0-11.0); Neutrophils Absolute Auto 5.5 K/mm3 (1.7-7.2); Neutrophils Percent Auto 64.3 % (50.0-70.0); Platelet Count Result 254 K/mm3 (150-420); Red Blood Count 4.59 M/mm3 (4.20-5.40); Red Cell Distribution Width 14.1 % (11.6-14.4); White Blood Count 8.6 K/mm3 (4.8-10.8)
[2022-11-12 09:42] LABS: Alanine Aminotransferase 25 U/L (14-59); Albumin Level 3.6 g/dL (3.4-5.0); Alkaline Phosphatase 100 U/L (46-116); Anion Gap 9 mmol/L (8-16); Aspartate Amino Transferase 15 U/L (15-37); Bilirubin,Total 0.4 mg/dL (0.00-1.00); Blood Urea Nitrogen 15 mg/dL (7-18); Carbon Dioxide 28 mmol/L (21-32); Chloride 103 mmol/L (98-108); Estimated Glomerular Filt Rate > 60; Glucose 117 mg/dL (70-99); Osmolality Calculated 291 mOsm/kg (285-295); Potassium 4.9 mmol/L (3.5-5.1); Sodium 140 mmol/L (136-145); Total Protein 7.3 g/dL (6.4-8.2)
[2022-11-12 10:13] LABS: Appearance Urine Clear (Clear); Bilirubin Urine Negative (Negative); Blood Urine Negative (Negative); Color Urine Light Yellow (Yellow); Glucose Urine UA Negative (Negative); Ketones Urine Negative (Negative); Leukocyte Esterase Ur Trace (Negative); Nitrate Urine Negative (Negative); Protein Urine 1+ (Negative); Urobilinogen Urine 0.2 mg/dL (0.2-1.0)
[2022-11-12 10:17] LABS: Add Urine Microscopic? YES; RBC Urine None seen /hpf (0-2); WBC Urine 0-3 /hpf (0-3)
[2022-11-12 10:18] LABS: Bacteria Urine 1+ /hpf; Squamous Epithelial Cell Urine Moderate /hpf (Few)
[2022-11-12 10:18] LABS: Creatinine Urine 83.03 mg/dL (40-278); Total Protein Urine Random 49.3 mg/dL (0.0-11.9); Ur Ttl Prot Creatinine Ratio 0.59 mg/mg (0-0.20)
[2022-11-15 14:26] LABS: Alpha 1 Globulin 0.4 g/dL (0.2-0.3); Alpha 2 Globulin 0.9 g/dL (0.5-0.9); Beta 1 Globulin 0.5 g/dL (0.4-0.6); Gamma Globulin 1.1 g/dL (0.8-1.7); Protein, Total 7.3 g/dL (6.1-8.1)
[2022-11-16 09:29] LABS: Thyroid Stimulating Hormone 1.72 uIU/mL (0.36-3.74)
== END 2022-11-12 08:24 | disposition home or self-care (01) ==
PROVIDERS: PCP Family Medicine
DX: I10 Essential (primary) hypertension (principal); Z12.31 Encounter for screening mammogram for malignant neoplasm of breast; N18.1 Chronic kidney disease, stage 1; E03.9 Hypothyroidism, unspecified
CPT/HCPCS: 36415; 77063; 77067; 80053; 81001; 82570; 84155; 84156; 84165; 84443; 85025

== ENCOUNTER 2023-05-20 07:58 | Outpatient (CLI) | payer MEDICARE, SELFPAY ==
[2023-05-20 08:26] LABS: Basophils Absolute Auto 0.03 K/mm3 (0.00-0.10); Basophils Percent Auto 0.4 % (0.0-1.0); Eosinophils Absolute Auto 0.25 K/mm3 (0.02-0.50); Eosinophils Percent Auto 3.7 % (1.0-6.0); Hematocrit 43.6 % (35.0-42.0); Hemoglobin 14.3 g/dL (11.7-13.8); Immature Granulocyte Absolute 0.02 K/mm3 (0.00-0.00); Immature Granulocyte Percent A 0.3 % (0.0-0.0); Lymphocytes Absolute Auto 2.07 K/mm3 (1.10-4.50); Lymphocytes Percent Auto 30.4 % (18.0-42.0); Mean Corpuscular HGB Conc 32.8 g/dL (32.0-36.0); Mean Corpuscular Hemoglobin 31.3 pg (27.0-31.0); Mean Corpuscular Volume 95.4 fL (78.0-102.0); Mean Platelet Volume 10.4 fl (9.2-11.8); Monocytes Absolute Auto 0.63 K/mm3 (0.10-0.90); Monocytes Percent Auto 9.3 % (2.0-11.0); Neutrophils Absolute Auto 3.8 K/mm3 (1.7-7.2); Neutrophils Percent Auto 55.9 % (50.0-70.0); Platelet Count Result 257 K/mm3 (150-420); Red Blood Count 4.57 M/mm3 (4.20-5.40); Red Cell Distribution Width 13.3 % (11.6-14.4); White Blood Count 6.8 K/mm3 (4.8-10.8)
[2023-05-20 09:03] LABS: Creatinine Urine 101.67 mg/dL (40-278)
[2023-05-20 09:06] LABS: Microalbumin Urine Random 259.3 mg/L
[2023-05-20 09:45] LABS: Alanine Aminotransferase 26 U/L (14-59); Albumin Level 3.6 g/dL (3.4-5.0); Alkaline Phosphatase 86 U/L (46-116); Anion Gap 9 mmol/L (8-16); Aspartate Amino Transferase 12 U/L (15-37); Bilirubin,Total 0.5 mg/dL (0.00-1.00); Blood Urea Nitrogen 15 mg/dL (7-18); Calcium 9.5 mg/dL (8.5-10.1); Carbon Dioxide 28 mmol/L (21-32); Chloride 103 mmol/L (98-108); Cholesterol 194 mg/dL (0-200); Estimated Glomerular Filt Rate > 60; Glucose 124 mg/dL (70-99); HDL Direct 63 mg/dL (40-60); LDL Cholesterol Calculated 112 mg/dL (<130); Osmolality Calculated 291 mOsm/kg (285-295); Potassium 4.4 mmol/L (3.5-5.1); Sodium 140 mmol/L (136-145); Thyroid Stimulating Hormone 1.89 uIU/mL (0.36-3.74); Total Protein 6.8 g/dL (6.4-8.2); Triglycerides 96 mg/dL (0-150)
== END 2023-05-20 07:59 | disposition home or self-care (01) ==
LOC: CHSLAB 08:00
PROVIDERS: PCP Family Medicine; Visit Provider Family Medicine
DX: I10 Essential (primary) hypertension (principal); E78.2 Mixed hyperlipidemia; R73.01 Impaired fasting glucose
CPT/HCPCS: 36415; 80053; 80061; 82043; 83036; 84443; 85025

== ENCOUNTER 2023-05-23 10:24 | Outpatient (CLI) | payer MEDICARE, SELFPAY ==
--- NOTE | ~2023-05-23 | XR_ITS ---
XR knee LT 3V 05/23/2023 10:51 Indication: Knee pain Procedure: 3 views left knee Comparison: 07/10/2016 Findings: There is moderate tricompartment osteoarthritis of the left knee. No fracture or traumatic malalignment. No significant joint effusion. Impression: 1: Moderate osteoarthritis of the left knee. Reviewed, dictated and finalized at location L. Impression: 1: Moderate osteoarthritis of the left knee.
--- NOTE | ~2023-05-23 | XR_ITS ---
XR knee RT 3V 05/23/2023 10:51 Indication: Knee pain Procedure: 3 views right knee Comparison: No prior studies for comparison. Findings: There is moderate tricompartment osteoarthritis, most advanced in the medial compartment. T here is chondrocalcinosis. There is moderate joint effusion. No acute fracture or traumatic malalignm ent. Impression: 1: Moderate osteoarthritis of the right knee. 2: Moderate joint effusion. 3: Chondrocalcinosis. Reviewed, dictated and finalized at location L. Impression: 1: Moderate osteoarthritis of the right knee. 2: Moderate joint effusion. 3: Chondrocalcinosis.
== END 2023-05-23 10:25 | disposition home or self-care (01) ==
LOC: CHSIMG 10:26
PROVIDERS: PCP Family Medicine; Visit Provider Family Medicine
DX: M17.0 Bilateral primary osteoarthritis of knee (principal); M25.461 Effusion, right knee; M11.261 Other chondrocalcinosis, right knee
CPT/HCPCS: 73562

== ENCOUNTER 2023-09-02 15:23 | Emergency (ER) | payer MEDICARE, SELFPAY ==
--- NOTE | ~2023-09-02 | XR_ITS ---
XR shoulder RT min 2V DATE: 09/02/2023 16:31 INDICATION: Fall. Right arm deformity TECHNIQUE: 4 views of right shoulder COMPARISON: None FINDINGS: There is a comminuted fracture of the proximal shaft of the humerus with anteromedial displ acement of the major distal fracture fragment. Diffuse osteopenia. Mild degenerative change at the right acromioclavicular and glenohumeral joints. Thoracic dextroscoliosis and degenerative spurring. Aortic arch calcification. IMPRESSION: Comminuted fracture of the proximal shaft right humerus Osteopenia Reviewed, dictated and finalized at location B. FACTURING ADVISOR
--- NOTE | ~2023-09-02 | XR_ITS ---
XR knee LT 3V DATE: 09/02/2023 16:32 INDICATION: Fall. Left knee pain. TECHNIQUE: AP, PA and crosstable lateral views COMPARISON: 05/23/2023 left knee FINDINGS: Prominent patellar enthesopathy at the insertions of the quadriceps and particularly patell ar tendon insertion sites. There is tricompartment osteoarthritis, most prominent at the patellofemoral and medial compartments. There is moderately prominent loss of medial compartment joint space. No fracture or dislocation, periosteal reaction or bone destruction, radiopaque intra-articular loose body or chondrocalcinosis is detected. IMPRESSION: Tricompartment osteoarthritis, most prominent at the patellofemoral and medial compartmen ts Reviewed, dictated and finalized at location B. ER PRINTED CIRCUIT BOARD PANELS IMPRESSION: Tricompartment osteoarthritis, most prominent at the patellofemoral and medial compartments
--- NOTE | ~2023-09-02 | CT_ITS ---
EXAMINATION: CT brain wo con DATE: 09/02/2023 16:33 INDICATION: Fall with right forehead contusion TECHNIQUE: Computed tomography (CT) of the head was performed without intravenous contrast. Sagittal and coronal reconstructions were performed. The mA was adjusted according to patient size. Iterative reconstruction technique was employed. The dose-length product was 756.67 mGy-cm. COMPARISON: None FINDINGS: No fracture. No acute intracranial hemorrhage, acute infarction or abnormal extra axial fluid collect ion. There is mild to moderate scattered white matter hypoattenuation consistent with chronic small v essel ischemic disease. Ventricles are normal and symmetric. No mass/mass effect. Changes of bilater al intraocular lens replacement. The orbits, paranasal sinuses and mastoid air cells are normal. IMPRESSION: 1. No fracture or acute intracranial process. 2. Mild to moderate scattered white matter hypoattenuation consistent with chronic small vessel ische aurelia disease. Reviewed, dictated and finalized at location A. STERED NURSE MIDWIFE IMPRESSION: 1. No fracture or acute intracranial process. 2. Mild to moderate scattered white matter hypoattenuation consistent with it technical support specialist gonzalo small vessel ischemic disease.
--- NOTE | ~2023-09-02 | XR_ITS ---
XR humerus RT DATE: 09/02/2023 16:33 INDICATION: Fall. Right arm injury, deformity TECHNIQUE: AP and lateral views COMPARISON: None FINDINGS: There is a comminuted fracture the proximal shaft of the right humerus with anterior displa cement. Normal alignment at the acromioclavicular, glenohumeral and elbow joints. IMPRESSION: Comminuted fracture proximal shaft of humerus Reviewed, dictated and finalized at location B. HT CONTROL ENGINEER
--- NOTE | ~2023-09-02 | CT_ITS ---
EXAMINATION: CT cervical spine wo con DATE: 09/02/2023 16:30 INDICATION: fall/NO NECK PAIN TECHNIQUE: Computed tomography (CT) of the cervical spine was performed without intravenous contrast. Automated exposure control and iterative reconstruction technique were employed. The dose-length pro duct was 496.92 mGy-cm. COMPARISON: CT lung screening 05/01/2022. FINDINGS: Vertebral Body Alignment: Intact. Craniocervical and atlantoaxial alignment: Moderate degenerative change. Alignment intact. Osseous structures/fracture: No evidence of a lytic or blastic process in the visualized spine. No e vidence of acute fracture. Cervical soft tissues: The paraspinal soft tissues planes are maintained. Senescent change and mild s cattered tree-in-bud opacities in the lungs. Degenerative changes: Multilevel degenerative disc disease and facet arthropathy. Severe left neural foraminal narrowing at C5-6. IMPRESSION: No acute fracture or traumatic malalignment in the cervical spine. Pulmonary tree-in-bud opacities as can be seen with atypical infection (MAC, TB, fungal), ABPA, airwa ys disease, and aspiration. Reviewed, dictated and finalized at location K. IRON OPERATOR IMPRESSION: No acute fracture or traumatic malalignment in the cervical spine. Pulmonary tree-in-bud opacities as can be seen with atypical infection (MAC, TB , fungal), ABPA, airways disease, and aspiration.
--- NOTE | ~2023-09-02 | XR_ITS ---
EXAMINATION: XR knee RT 3V DATE: 09/02/2023 16:30 INDICATION: Right knee pain post fall TECHNIQUE: Anteroposterior, 2 oblique and crosstable lateral views of the right knee were obtained COMPARISON: 05/23/2023 FINDINGS: Alignment is normal. No fracture. Tricompartmental osteoarthritis with small to moderate size margin al osteophytes in all 3 compartments of the knee. There is at least moderate joint space narrowing th e medial compartment which could be underestimated on nonweightbearing imaging. Moderate-sized enthes ophytes along the anterior patella. No joint effusion/layering lipohemarthrosis. Soft tissues are unr emarkable. IMPRESSION: 1. At least moderate severity medial compartment predominant tricompartmental osteoarthritis at the r ight knee. No acute osseous abnormality. Reviewed, dictated and finalized at location A. IRER RESISTANCE WELDING MACHINES IMPRESSION: 1. At least moderate severity medial compartment predominant tricompartmental o steoarthritis at the right knee. No acute osseous abnormality.
[2023-09-02 15:23] VITALS: BP 159/69; PULSE 82; RESP 20; TEMP 36.6; O2SAT 93
--- NOTE | 2023-09-02 15:38 | ED.GENADULT ---
HPI - General Adult General Chief complaint: Extremity Injury, Upper Stated complaint: right arm pain Time Seen by Provider: 09/02/23 15:37 Source: patient and family Mode of arrival: ambulatory History of Present Illness HPI narrative: patient tripped over her dog, 1 hour prior to arrival to the ED, complaining of right shoulder pain, knees pain which is not different than before, abrasion at the right forehead, no loss of consciousness, neck pain, no headache, no nausea or vomiting. Related Data Home Medications Medication Instructions Recorded Confirmed hydrochlorothiazide 25 mg tablet 25 mg PO DAILY 09/02/23 09/02/23 levothyroxine 100 mcg tablet 100 mcg PO DAILY 09/02/23 09/02/23 losartan 50 mg tablet 50 mg PO DAILY 09/02/23 09/02/23 pravastatin 10 mg tablet 10 mg PO DAILY 09/02/23 09/02/23 Allergies Allergy/AdvReac Type Severity Reaction Status Date / Time No Known Allergies Allergy Verified 09/02/23 16:06 Review of Systems Review of Systems: All systems reviewed & are unremarkable except as noted in HPI and below Exam Narrative: General appearance: Well-developed, well-nourished Skin: Normal color Head: Normocephalic, Right forehead abrasion Eyes: Clear conjunctiva ENT: Oropharynx normal, ears normal, nose normal Neck: Supple, nontender Chest and respiratory: Airway patent, no respiratory distress, no accessory muscle use Heart: Regular rate/rhythm Abdomen: Soft, nontender, no organomegaly, quiet bowel sounds Vascular: Normal peripheral pulses, normal capillary refill. Musculoskeletal: diffuse tenderness right arm, severe limited range of motion, swelling, no bruises, positive deformity Neurologic: Alert and oriented ?3, TANK CAR MECHANIC is normal as tested, no gross motor deficit Course Vital Signs Vital signs: Vital Signs Temperature 36.6 C 09/02/23 15:23 Pulse Rate 82 09/02/23 15:23 Respiratory Rate 20 09/02/23 15:23 Blood Pressure 159/69 H 09/02/23 15:23 Pulse Oximetry 93 09/02/23 15:23 Oxygen Delivery Room Air 09/02/23 15:23 Temperature 36.6 C 09/02/23 15:23 Pulse Rate 82 09/02/23 15:23 Respiratory Rate 20 09/02/23 15:23 Blood Pressure 159/69 H 09/02/23 15:23 Pulse Oximetry 93 09/02/23 15:23 Oxygen Delivery Room Air 09/02/23 15:23 Medical Decision Making MDM Narrative Medical decision making narrative: patient tripped, complaining of right arm pain Vital signs are stable, Differential diagnosis include brain bleed, neck injury, right humeral fracture, knee contusion. Workup today showed comminuted fracture of the proximal shaft right humerus, osteopenia Discharged on [place], patient cannot take NSAID, to see Dr. chowdary Differential Diagnosis Differential Diagnosis: as above Vital Signs Vital Signs: Vital Signs Temperature 36.6 C 09/02/23 15:23 Pulse Rate 82 09/02/23 15:23 Respiratory Rate 20 09/02/23 15:23 Blood Pressure 159/69 H 09/02/23 15:23 Pulse Oximetry 93 09/02/23 15:23 Oxygen Delivery Room Air 09/02/23 15:23 Temperature 36.6 C 09/02/23 15:23 Pulse Rate 82 09/02/23 15:23 Respiratory Rate 20 09/02/23 15:23 Blood Pressure 159/69 H 09/02/23 15:23 Pulse Oximetry 93 09/02/23 15:23 Oxygen Delivery Room Air 09/02/23 15:23 Imaging Data Attestation: I personally reviewed and interpreted this imaging study as follows: Radiologist's impression: Impressions Cervical Spine CT 09/02/23 16:31 IMPRESSION: No acute fracture or traumatic malalignment in the cervical spine. Pulmonary tree-in-bud opacities as can be seen with atypical infection (MAC, TB, fungal), ABPA, airways disease, and aspiration.
[2023-09-02 16:55] VITALS: BP 150/90; PULSE 71; RESP 16; TEMP 36.6; O2SAT 94
== END 2023-09-02 17:02 | disposition home or self-care (01) ==
PROVIDERS: Emergency Provider Emergency Medicine; PCP Family Medicine
DX: S42.351A Displaced comminuted fracture of shaft of humerus, right arm, initial encounter for closed fracture (principal); Z79.899 Other long term (current) drug therapy; W01.0XXA Fall on same level from slipping, tripping and stumbling without subsequent striking against object, initial encounter
CPT/HCPCS: 70450; 72125; 73030; 73060; 73562; 99284

== ENCOUNTER 2023-09-23 08:57 | Outpatient (CLI) | payer MEDICARE, SELFPAY ==
--- NOTE | ~2023-09-23 | XR_ITS ---
Right Humerus Technique: AP and lateral views were obtained. Clinical History: Fracture follow-up COMPARISON: 09/04/2023 Findings: Oblique fracture the proximal to mid humeral shaft again present, with significant lateral apex angulation at the fracture site. Visualized joint spaces are grossly preserved. Soft tissues are unremarkable. Impression: No significant change in displaced, significantly angulated fracture the proximal to mid humeral shaf t. Reviewed, dictated and finalized at location . RTS DEVELOPER Impression: No significant change in displaced, significantly angulated fracture the proxim al to mid humeral shaft.
== END 2023-09-23 08:58 | disposition home or self-care (01) ==
LOC: CHSIMG 08:58
PROVIDERS: PCP Family Medicine; Visit Provider Orthopaedic Surgery
DX: S42.291A Other displaced fracture of upper end of right humerus, initial encounter for closed fracture (principal); M79.601 Pain in right arm
CPT/HCPCS: 73060

== ENCOUNTER 2023-10-07 09:45 | Outpatient (CLI) | payer MEDICARE, SELFPAY ==
--- NOTE | ~2023-10-07 | XR_ITS ---
EXAMINATION: XR humerus RT DATE: 10/07/2023 10:11 INDICATION: Right arm pain. TECHNIQUE: 2 views of right humerus were obtained. COMPARISON: Right humerus radiographs 09/23/2023 FINDINGS: There is a comminuted fracture of mid shaft of right humerus. The main distal fracture frag ment demonstrates 21 degrees anterior angulation and 15 degrees medial angulation. Early callus forma tion is noted. There is mild osteoarthritis of glenohumeral joint and severe osteoarthritis of acromi oclavicular joint. There are enthesophytes at the medial and lateral humeral epicondyles. IMPRESSION: 1. Healing comminuted fracture of diaphysis of right humerus. 2. Polyarticular osteoarthritis. Reviewed, dictated and finalized at location A.
== END 2023-10-07 09:46 | disposition home or self-care (01) ==
LOC: CHSIMG 09:46
PROVIDERS: PCP Family Medicine; Visit Provider Orthopaedic Surgery
DX: M79.601 Pain in right arm (principal); S42.391D Other fracture of shaft of right humerus, subsequent encounter for fracture with routine healing; M19.041 Primary osteoarthritis, right hand
CPT/HCPCS: 73060

== ENCOUNTER 2023-11-18 08:04 | Outpatient (CLI) | payer MEDICARE, SELFPAY ==
--- NOTE | ~2023-11-18 | DEXA_ITS ---
? Bone Density Report? Name:? ILA GARLAND Patient ID:??? [id number] Age:? 78 Sex:? Female Ethnicity:? White Date of : 1945 Indication: postmenopausal; screening for osteoporosis; height loss; prior fracture; hysterectomy; Referring Provider: Joseph Hernandez Study: Bone densitometry was performed. Exam Date: November 18, 2023 Accession number: [id number] Bone Density: Region? BMD??? T-score? Z-score?? Classification AP Spine(L1, L2, L3)? 1.215??? 1.8?4.3? Normal Femoral Neck (Left)? 0.769?? -0.7? 1.5? Normal Total Hip (Left)? 0.917?? -0.2? 1.8? Normal Femoral Neck (Right)? 0.618?? -2.1? 0.2? Osteopenia Total Hip (Right)? 0.901?? -0.3? 1.6? Normal Femoral Neck Mean? 0.694?? -1.4? 0.8? Osteopenia Total Hip Mean? 0.909?? -0.3? 1.7? Normal World Health Organization criteria for BMD impression classify patients as: Normal (T-score at or above -1.0), Osteopenia (T-score between -1.0 and -2.5), or Osteoporosis (T-score at or below -2.5). 10-year Fracture Risk(1): Major Osteoporotic Fracture? 21% Hip Fracture? 8.3% Reported Risk Factors: [place] (), Neck BMD=0.618, BMI=34.0, previous fracture, smoking (1) FRAX? Version 3.08. Fracture probability calculated for an untreated patient. Fracture probability may be lower if the patient has received treatment. Clinical Information Provided by Patient: Has had a low trauma fracture Smokes Has used the following medications: Vitamin D, Calcium Has the following medical conditions: Hysterectomy Patient maximum height was 65 Menopause Age: 50 Onset of menses at age 12 Number of children 2 Impression: The patient has low bone mass, based on the Right Femoral Neck T- score. The patient has risk factors, including: smoking, previous fracture. Discussion: BONE DENSITY IS LOW AT ONE OR MORE SKELETAL SITES. This patient's lowest T-score is low at one or more skeletal sites.? It meets the World Health Organization's (WHO) criteria for ?low bone mass?? (T-score between -1.0 and -2.5).? The patient's 10-year risk of fracture as calculated by FRAX is less than the threshold where pharmacological therapy is recommended by the National Osteoporosis Foundation (NOF).? However, all treatment decisions require clinical judgment and consideration of individual patient factors, including patient preferences, comorbidities, previous drug use, risk factors not captured in the FRAX model (e.g., frailty, falls, vitamin D deficiency, increased bone turnover, interval significant decline in bone density) and possible under or overestimation of fracture risk by FRAX. The patient should follow a healthful lifestyle (good nutrition with adequate calcium and vitamin D, and appropriate weight-bearing exercise). Follow-Up: Consider repeating this study in 2 to 3 years to reassess this patient's status, or sooner if there is some new clinical indication.
[2023-11-18 08:27] LABS: Basophils Absolute Auto 0.02 K/mm3 (0.00-0.10); Basophils Percent Auto 0.3 % (0.0-1.0); Eosinophils Absolute Auto 0.35 K/mm3 (0.02-0.50); Eosinophils Percent Auto 5.3 % (1.0-6.0); Hematocrit 44.5 % (35.0-42.0); Hemoglobin 14.3 g/dL (11.7-13.8); Immature Granulocyte Absolute 0.01 K/mm3 (0.00-0.00); Immature Granulocyte Percent A 0.2 % (0.0-0.0); Lymphocytes Absolute Auto 2.18 K/mm3 (1.10-4.50); Mean Corpuscular HGB Conc 32.1 g/dL (32-36); Mean Corpuscular Hemoglobin 30.6 pg (27.0-31.0); Mean Corpuscular Volume 95.3 fL (78.0-102.0); Mean Platelet Volume 10.5 fl (9.2-11.8); Monocytes Percent Auto 9.1 % (2.0-11.0); Neutrophils Absolute Auto 3.45 K/mm3 (1.70-7.20); Neutrophils Percent Auto 52.1 % (50.0-70.0); Platelet Count Result 230 K/mm3 (150-420); Red Blood Count 4.67 M/mm3 (4.20-5.40); Red Cell Distribution Width 13.8 % (11.6-14.4); White Blood Count 6.6 K/mm3 (4.8-10.8)
[2023-11-18 08:49] LABS: Anion Gap 9 mmol/L (4-12); Blood Urea Nitrogen 16 mg/dL (7-18); Calcium 8.8 mg/dL (8.5-10.1); Carbon Dioxide 30 mmol/L (21-32); Chloride 103 mmol/L (98-108); Estimated Glomerular Filt Rate > 60; Glucose 120 mg/dL (70-99); Osmolality Calculated 296 mOsm/kg (285-295); Potassium 4.6 mmol/L (3.5-5.1); Sodium 142 mmol/L (136-145)
[2023-11-18 09:34] LABS: Creatinine Urine 93.89 mg/dL (40-278)
[2023-11-18 09:37] LABS: Microalbumin Urine Random > 400.0 mg/L
== END 2023-11-18 08:05 | disposition home or self-care (01) ==
LOC: CHSIMG 08:06
PROVIDERS: PCP Family Medicine; Visit Provider Family Medicine
DX: Z78.0 Asymptomatic menopausal state (principal); M85.89 Other specified disorders of bone density and structure, multiple sites
CPT/HCPCS: 36415; 77080; 80048; 82043; 85025

== ENCOUNTER 2024-01-02 08:17 | Outpatient (CLI) | payer MEDICARE, SELFPAY ==
--- NOTE | ~2024-01-02 | MM_ITS ---
EXAMINATION: MM screening karly BI w jaye HISTORY: Screening TECHNIQUE: Craniocaudal and mediolateral oblique 3-D tomosynthesis images were obtained and synthetic 2-D images were generated. CAD analysis was submitted and interpreted. COMPARISON: Comparison to multiple prior studies sequentially, with oldest reviewed study dated 03/19. BREAST PARENCHYMAL COMPOSITION: Not dense: There are scattered areas of fibroglandular density. FINDINGS: There are developing nodular asymmetries in the subareolar and outer aspect of the right br east. The left breast is stable without evidence for malignancy. IMPRESSION: 1. Developing right breast asymmetries. 2. Additional mammographic views and possible breast ultrasound are recommended. BI-RADS Category 0: Incomplete: Needs additional imaging evaluation. Reviewed, dictated and finalized at location B. IMPRESSION: 1. Developing right breast asymmetries. 2. Additional mammographic views and possible breast ultrasound are recommended . BI-RADS Category 0: Incomplete: Needs additional imaging evaluation.
== END 2024-01-02 08:18 | disposition home or self-care (01) ==
LOC: CHSIMG 08:18
PROVIDERS: PCP Family Medicine; Visit Provider Family Medicine
DX: Z12.31 Encounter for screening mammogram for malignant neoplasm of breast (principal); R92.8 Other abnormal and inconclusive findings on diagnostic imaging of breast
CPT/HCPCS: 77063; 77067

== ENCOUNTER 2024-01-07 09:32 | Outpatient (CLI) | payer MEDICARE, SELFPAY ==
--- NOTE | ~2024-01-07 | MMUS_ITS ---
EXAMINATION: MM diagnostic karly RT w jaye, US breast RT limited HISTORY: Follow-up right breast asymmetry TECHNIQUE: Additional 3-D tomosynthesis images of the right breast were performed and synthetic 2-D i mages were generated. CAD analysis was submitted and interpreted. High resolution Limited right breas t ultrasound was performed. COMPARISON: Comparison to multiple prior studies sequentially, with oldest reviewed study dated 03/26. BREAST PARENCHYMAL COMPOSITION: Not dense: There are scattered areas of fibroglandular density. FINDINGS: MAMMOGRAPHIC FINDINGS: There are no suspicious masses, calcifications or architectural distortion in the right breast to sug gest malignancy. ULTRASOUND: Limited left breast ultrasound: There are mildly prominent subareolar ducts likely accounting for asy mmetric density seen on mammography. IMPRESSION: 1. No evidence for malignancy in the right breast. Benign findings. 2. Routine yearly screening mammogram and regular clinical breast examination are recommended. BI-RADS Category 1: Negative Reviewed, dictated and finalized at location B. IMPRESSION: 1. No evidence for malignancy in the right breast. Benign findings. 2. Routine yearly screening mammogram and regular clinical breast examination a re recommended. BI-RADS Category 1: Negative
== END 2024-01-07 09:33 | disposition home or self-care (01) ==
LOC: CHSIMG 09:33
PROVIDERS: PCP Family Medicine; Visit Provider Family Medicine
DX: R92.8 Other abnormal and inconclusive findings on diagnostic imaging of breast (principal)
CPT/HCPCS: 76642; 77061; 77065; G0279

== ENCOUNTER 2024-05-18 07:54 | Outpatient (CLI) | payer MEDICARE, SELFPAY ==
[2024-05-18 08:06] LABS: Basophils Absolute Auto 0.04 K/mm3 (0.00-0.10); Basophils Percent Auto 0.5 % (0.0-1.0); Eosinophils Absolute Auto 0.31 K/mm3 (0.02-0.50); Hematocrit 43.8 % (35.0-42.0); Hemoglobin 14.6 g/dL (11.7-13.8); Immature Granulocyte Absolute 0.02 K/mm3 (0.00-0.00); Immature Granulocyte Percent A 0.3 % (0.0-0.0); Lymphocytes Absolute Auto 2.38 K/mm3 (1.10-4.50); Lymphocytes Percent Auto 30.6 % (18.0-42.0); Mean Corpuscular HGB Conc 33.3 g/dL (32-36); Mean Corpuscular Hemoglobin 32.5 pg (27.0-31.0); Mean Corpuscular Volume 97.6 fL (78.0-102.0); Mean Platelet Volume 10.2 fl (9.2-11.8); Monocytes Absolute Auto 0.75 K/mm3 (0.10-0.90); Monocytes Percent Auto 9.6 % (2.0-11.0); Neutrophils Absolute Auto 4.28 K/mm3 (1.70-7.20); Platelet Count Result 257 K/mm3 (150-420); Red Blood Count 4.49 M/mm3 (4.20-5.40); Red Cell Distribution Width 13.8 % (11.6-14.4); White Blood Count 7.8 K/mm3 (4.8-10.8)
[2024-05-18 09:32] LABS: Alanine Aminotransferase 32 U/L (14-59); Albumin Level 3.6 g/dL (3.4-5.0); Alkaline Phosphatase 96 U/L (46-116); Anion Gap 7 mmol/L (4-12); Aspartate Amino Transferase 21 U/L (15-37); Bilirubin,Total 0.4 mg/dL (0.00-1.00); Blood Urea Nitrogen 15 mg/dL (7-18); Calcium 9.6 mg/dL (8.5-10.1); Carbon Dioxide 31 mmol/L (21-32); Chloride 101 mmol/L (98-108); Cholesterol 199 mg/dL (0-200); Estimated Glomerular Filt Rate > 60; Glucose 121 mg/dL (70-99); HDL Direct 76 mg/dL (40-60); LDL Cholesterol Calculated 105 mg/dL (<130); Osmolality Calculated 289 mOsm/kg (285-295); Potassium 4.9 mmol/L (3.5-5.1); Sodium 139 mmol/L (136-145); Thyroid Stimulating Hormone 1.66 uIU/mL (0.36-3.74); Total Protein 7.1 g/dL (6.4-8.2); Triglycerides 89 mg/dL (0-150)
[2024-05-18 10:34] LABS: Creatinine Urine 109.56 mg/dL (40-278)
[2024-05-18 10:37] LABS: Microalbumin Urine Random > 400.0 mg/L
[2024-05-22 10:37] LABS: Hemoglobin A1C 6.4 % (<5.7)
== END 2024-05-18 07:55 | disposition home or self-care (01) ==
LOC: CHSLAB 07:56
PROVIDERS: PCP Family Medicine; Visit Provider Family Medicine
DX: I10 Essential (primary) hypertension (principal); E78.2 Mixed hyperlipidemia; R73.01 Impaired fasting glucose
CPT/HCPCS: 36415; 80053; 80061; 82043; 83036; 84443; 85025

== ENCOUNTER 2024-06-04 13:57 | Outpatient (CLI) | payer MEDICARE, SELFPAY ==
--- NOTE | 2024-06-04 14:01 | ECHO_ITS ---
Patient Info Name: Ellen Ibarra Age: 79 years : 1945 Gender: Female Ht: 63 in Wt: 180 lbs BSA: 1.94 m2 HR: 78 bpm BP: 143 / 101 mmHg Heart Rhythm: Atrial Fibrillation Technical Quality: Fair Exam Date: 06/04/2024 3:02 PM Exam Location: Echo Lab Patient Status: Outpatient Admit Date: 06/04/2024 Staff Ordering Physician: Joseph Hernandez MD Wool Spotter: Karson Donohue RDCS Attending Provider: Joseph Hernandez MD Referring Physician: David MANDEL; Exam Type: CA echo doppler color flow Study Info Indications - A FIB Complete two-dimensional, color flow and Doppler transthoracic echocardiogram is performed. Summary 1. Complete two-dimensional, color flow and Doppler transthoracic echocardiogram is performed. 2. Left ventricular chamber dimension is normal. 3. Left ventricular systolic function is normal, estimated at 60-65%. 4. The left ventricular diastolic function is abnormal. 5. E/e' 15 is elevated. 6. Left atrial chamber dimension is moderately enlarged. 7. There is mild aortic valve sclerosis. 8. The mitral valve has moderately calcified annulus. 9. There is mild mitral valve regurgitation. 10. There is mild tricuspid valve regurgitation. 11. No pulmonary hypertension, estimated pulmonary arterial systolic pressure is 24 mmHg. Left Ventricle E/e' 15 is elevated. Left ventricular chamber dimension is normal. Left ventricular systolic function is normal, estimated at 60-65%. The left ventricular diastolic function is abnormal. Right Ventricle Right ventricular systolic function is normal and with normal TAPSE 2.0 cm. Right ventricular chamber dimension is normal. Left Atria Left atrial chamber dimension is moderately enlarged. Right Atria Right atrial chamber dimension is normal. Aortic Valve The aortic valve is probable trileaflet. There is mild aortic valve sclerosis. There is no aortic valve stenosis. There is no aortic valve regurgitation. Pulmonic Valve There is no pulmonic regurgitation. Mitral Valve The mitral valve has moderately calcified annulus. There is no mitral valve stenosis. There is mild mitral valve regurgitation. Tricuspid Valve There is mild tricuspid valve regurgitation. No pulmonary hypertension, estimated pulmonary arterial systolic pressure is 24 mmHg. Pericardium/Pleural There is no pericardial effusion. Inferior Vena Cava Normal inferior vena cava with >50% collapse upon inspiration consistent with normal right atrial pressure, 5 mmHg. Aorta The aortic root size at the sinus of Valsalva is normal. Left Ventricular Outflow Tract Name Value Normal LVOT 2D LVOT Diameter 1.9 cm LVOT Doppler LVOT Peak Velocity 92 cm/s LVOT Peak Gradient 3 mmHg LVOT Mean Gradient 2 mmHg LVOT VTI 18 cm LVOT VTI/AV VTI Ratio 0.8 LVOT Stroke Volume 50 ml Mitral Valve Name Value Normal MV Doppler MV Decel [place] 733 cm/s2 MV PHT 51 ms MV Area (PHT) 4.3 cm2 4.0-5.0 MV Regurgitation Doppler MR Peak Gradient 77 mmHg MV Diastolic Function MV E Peak Velocity 128 cm/s MV A Peak Velocity 5 cm/s MV E/A 25.9 MV Decel Time 175 ms Tricuspid Valve Name Value Normal TV Regurgitation Doppler TR Peak Velocity 218 cm/s TR Peak Gradient 19 mmHg Estimated PAP/RSVP RA Pressure 5 mmHg <=5 PA Systolic Pressure 24 mmHg <36 RV Systolic Pressure 24 mmHg <36 Aortic Valve Name Value Normal AV Doppler AV Peak Velocity 112 cm/s AV Peak Gradient 5 mmHg AV Mean Gradient 3 mmHg AV VTI 22 cm AV Area (Cont Eq VTI) 2.3 cm2 >=3.0 AV Area (Cont Eq Andrea) 2.4 cm2 AV V1/V2 Ratio 0.82 AV Regurgitation 2D LVOT Area 2.9 cm2 Ventricles Name Value Normal LV Dimensions 2D/MM IVS Diastolic Thickness (2D) 1.0 cm 0.6-1.0 LVID Diastole (2D) 4.6 cm 3.8-5.2 LVIW Diastolic Thickness (2D) 1.1 cm 0.6-0.9 LVID Systole (2D) 3.0 cm 2.2-3.5 LVOT Diameter 1.9 cm LV Mass (2D Cubed) 171.07 g 67.00-162.00 LV Mass Index (2D Cubed) 88 g/m2 43-95 Relative Wall Thickness (2D) 0.49 LV Fractional Shortening/Ejection Fraction 2D/MM LV Fractional Shortening (2D) 34 % 27-45 LV EF (2D Teicholz) 63 % 54-74 LV Diastolic Volume (4C MOD) 92 ml LV EF (4C MOD) 71 % LV Diastolic Volume (2C MOD) 103 ml LV EF (2C MOD) 65 % LV Diastolic Volume (BP MOD) 102 ml 46-106 LV Diastolic Volume Index (BP MOD) 53 ml/m2 29-61 LV Systolic Volume (BP MOD) 31 ml 14-42 LV Systolic Volume Index (BP MOD) 16 ml/m2 8-24 LV EF (BP MOD) 69 % 54-74 LV Diastolic Length (4C) 7.7 cm LV Systolic Length (4C) 5.4 cm LV Stroke Volume (4C MOD) 65 ml Atria Name Value Normal LA Dimensions LA Volume (4C A-L) 55 ml LA Volume (BP A-L) 61 ml RA Dimensions RA Area (4C) 10.7 cm2 <=18.0 Report Signatures
== END 2024-06-04 13:58 | disposition home or self-care (01) ==
LOC: CHSIMG 13:58
PROVIDERS: PCP Family Medicine; Visit Provider Family Medicine
DX: I48.91 Unspecified atrial fibrillation (principal); I08.3 Combined rheumatic disorders of mitral, aortic and tricuspid valves
CPT/HCPCS: 93306

== ENCOUNTER 2024-07-29 09:38 | Emergency (ER) | payer MEDICARE, SELFPAY ==
[2024-07-29] VITALS (8 sets, daily range): BP systolic 124–204; BP diastolic 73–165; PULSE 115–144; RESP 22–32; TEMP 36; O2SAT 88–98
--- NOTE | ~2024-07-29 | XR_ITS ---
EXAMINATION: XR chest 2V DATE: 07/29/2024 10:06 INDICATION: Shortness of breath TECHNIQUE: frontal and lateral views of the chest were obtained. COMPARISON: Chest radiograph dated 08/29/[address] dated 05/01/2022 FINDINGS: The lungs are clear with no focal airspace opacities, pulmonary edema, pleural effusion or pneumothor ax. The cardiomediastinal silhouette is normal. Thoracic kyphosis with moderate spondylosis. Old heal ed proximal right humeral diaphyseal fracture deformity. IMPRESSION: 1. No acute cardiopulmonary disease. Reviewed, dictated and finalized at location A. ATER CHIEF
--- NOTE | 2024-07-29 09:45 | ED_ITS ---
HPI - SOB/Dyspnea General Chief Complaint: Shortness of Breath/Dyspnea Stated Complaint: SOB Time Seen by Provider: 07/29/24 09:45 Source: patient Mode of arrival: ambulatory Limitations: no limitations History of Present Illness HPI Narrative: patient is a 79-year-old female with COPD and flare at this time. She has been sick for the past week. She also has a recent diagnosis of AFib and she is on Xarelto. MD elicited complaint: shortness of breath and cough Pertinent past history: COPD and other ( AFib new diagnosis in the past few weeks) Onset (ago): week(s) (1) Context: smoke/fume exposure ( tobacco) Timing: constant and progressively worsening Severity: moderate Exacerbating factors: movement, inspiration, cold air, smoke and deep breaths Known history of: COPD Associated symptoms: cough Treatment prior to arrival: none Related Data Home oxygen amount: none Home Medications ?Medication ?Instructions ?Recorded ?Confirmed ?Last Taken ?Type hydrochlorothiazide 25 mg tablet 25 mg PO DAILY 09/02/23 07/29/24 Unknown History levothyroxine 100 mcg tablet 100 mcg PO DAILY 09/02/23 07/29/24 Unknown History losartan 50 mg tablet 50 mg PO DAILY 09/02/23 07/29/24 Unknown History pravastatin 10 mg tablet 10 mg PO DAILY 09/02/23 07/29/24 Unknown History Allergies Allergy/AdvReac Type Severity Reaction Status Date / Time No Known Allergies Allergy Verified 07/29/24 09:48 Review of Systems 2 Review of Systems: All systems reviewed & are unremarkable except as noted in HPI and below Constitutional: Constitutional: Reports no additional constitutional complaints Eyes: Eyes: Reports no additional eye complaints ENT: Reports system reviewed and no additional complaints, except as documented Cardiovascular: Cardiovascular: Reports no additional cardiovascular complaints Respiratory: Respiratory: Reports no additional respiratory complaints Gastrointestinal: Gastrointestinal: Reports no additional gastrointestinal complaints Genitourinary: Genitourinary: Reports no additional female genitourinary complaints Musculoskeletal: Musculoskeletal: Reports no additional musculoskeletal complaints Integumentary/Breasts: Skin/Breast: Reports system reviewed and no additional complaints, except as docu Neurologic: Reports system reviewed and no additional complaints, except as documented Psychiatric: Psychiatric: Reports no additional psychiatric complaints Endocrine: Endocrine: Reports no additional endocrine complaints Hematologic/Lymphatic: Hematologic/Lymphatic: Reports no additional hematologic/lymphatic complaints Allergic/Immunologic: Allergic/Immunologic: Reports no additional allergic/immunologic complaints PMFSH Past Medical History Medical History Degenerative arthritis of right knee Bilateral knee pain Degenerative arthritis of knee, bilateral Surgical History Surgical History History of cholecystectomy (~1998) H/O Achilles tendon repair (~1997) History of appendectomy (~1955) Family History Family History Mother Stomach cancer Father Leukemia Social History Social History Smoking status: Current every day smoker Tobacco type: cigarettes Alcohol intake: never Substance use: never Occupation/Education: retired Additional occupation/education comments: hairdresser Gender identity (if verbalized by the patient): Female Exam 2 Const: General: ill appearing Nutritional Appearance: well nourished O rientation/consciousness: patient oriented x3 Limitations: no limitations HENMT: Head: normal to inspection Ears: external ears normal F carlos manuel/Nose/Sinus: Normal external nose present Face and sinus: sinuses nontender Eyes: Conjunctivae: conjunctivae normal Pupils: Equal, round and reactive pupils present EOM: EOMs intact bilaterally Direct Ophthalmoscopy: no photophobia Neck: Neck: normal visual inspection Chest: Chest palpation & inspection: normal inspection of the chest Resp: Effort & Inspection: abnormal respiratory effort, not labored, no retractions, tachypneic and no use of accessory muscles Auscultation: not clear to auscultation bilaterally, crackles, rales, rhonchi, wheezes, breath sounds present and diminished lung sounds Other: bilateral lung mcconnell Cardio: Rate: tachycardic Rhythm: regular rhythm Heart sounds: no murmurs GI: Inspection: non-distended GI Palp: Yes Soft to palpation, No Tenderness to palpation present (GI) and No Guarding due to palpation present (GI) A uscultation: normal bowel sounds : General: Yes bladder normal to palpation Back/Spine/Pelvis: Back: no CVA tenderness Skin: General skin exam: normal color Rashes: no rashes Wounds: no wounds Neuro: General: patient oriented x3 Cranial nerves: Yes Nystagmus not present Speech: normal speech Gait exam (Neuro): Normal gait present Extrem: General: normal to inspection Psych: Mental Status: mental status grossly normal Affect: normal affect Attitude: cooperative Course Vital Signs Vital signs: Vital Signs Temperature 36.0 C L 07/29/24 09:39 Pulse Rate 144 H 07/29/24 09:39 Respiratory Rate 32 H 07/29/24 09:39 Blood Pressure 147/78 H 07/29/24 09:39 Pulse Oximetry 88 L 07/29/24 09:39 Oxygen Delivery Room Air 07/29/24 09:39 Temperature 36.0 C L 07/29/24 09:39 Pulse Rate 142 H 07/29/24 10:31 Respiratory Rate 27 H 07/29/24 10:31 Blood Pressure 124/97 H 07/29/24 10:31 Pulse Oximetry 98 07/29/24 10:31 Oxygen Delivery Room Air 07/29/24 09:39 MDM - SOB/Dyspnea MDM Narrative Medical decision making narrative: patient is 79-year-old female with COPD exacerbation. We will give DuoNeb and Solu-Medrol at this time. We will do a chest x-ray and further labs for reassurance. She has slight hypoxemia and we will monitor and give oxygen as needed. If oxygen requirements, she will need to be admitted. Lab Data Attestation: I reviewed the patient's lab results. 07/29/24 10:09 07/29/24 10:09 Labs: Lab Results 07/29/24 Range/Units 10:09 WBC 6.5 (4.8-10.8) K/mm3 RBC 4.38 (4.20-5.40) M/mm3 Hgb 13.1 (11.7-13.8) g/dL Hct 41.1 (35.0-42.0) % MCV 93.8 (78.0-102.0) fL MCH 29.9 (27.0-31.0) pg MCHC 31.9 L (32-36) g/dL RDW 13.5 (11.6-14.4) % Plt Count 234 (150-420) K/mm3 MPV 10.3 (9.2-11.8) fl Immature Gran % (Auto) 0.5 H (0.0-0.0) % Neut % (Auto) 79.0 H (50.0-70.0) % Lymph % (Auto) 12.5 L (18.0-42.0) % Simpson % (Auto) 7.3 (2.0-11.0) % Eos % (Auto) 0.5 L (1.0-6.0) % Baso % (Auto) 0.2 (0.0-1.0) % Lymph # (Auto) 0.81 L (1.10-4.50) K/mm3 Simpson # (Auto) 0.47 (0.10-0.90) K/mm3 Eos # (Auto) 0.03 (0.02-0.50) K/mm3 Baso # (Auto) 0.01 (0.00-0.10) K/mm3 Abs Immat Gran (auto) 0.03 H (0.00-0.00) K/mm3 Absolute Neuts (auto) 5.13 (1.70-7.20) K/mm3 Absolute Nucleated RBC 0.00 (0.00-0.00) K/mm3 Nucleated RBC % 0.0 (0-0.0) % PT 10.9 (9.50-12.1) Seconds INR 1.0 APTT 27.3 (23.9-30.70) Sec Sodium 136 (136-145) mmol/L Potassium 3.7 (3.5-5.1) mmol/L Chloride 97 L (98-108) mmol/L Carbon Dioxide 28 (21-32) mmol/L Anion Gap 11 (4-12) mmol/L BUN 15 (7-18) mg/dL Creatinine 0.70 (0.55-1.02) mg/dL Estim Creat Clear Calc 59 ml/min Estimated GFR > 60 (59 - ) Glucose 184 H (70-99) mg/dL Calculated Osmolality 287 (285-295) mOsm/kg Lactic Acid 1.7 (0.4-2.0) mmol/L Calcium 9.2 (8.5-10.1) mg/dL Total Bilirubin 0.3 (0.00-1.00) mg/dL AST 17 (15-37) U/L ALT 24 (14-59) U/L Alkaline Phosphatase 108 (46-116) U/L Troponin I 13.5 (0.00-60.4) ng/L NT-Pro-B Natriuret Pep 151 (0-450) pg/mL Total Protein 7.1 (6.4-8.2) g/dL Albumin 3.6 (3.4-5.0) g/dL Influenza A (RT-PCR) Negative (Negative) Influenza B (RT-PCR) Negative (Negative) RSV (RT-PCR) Positive A (Negative) SARS-CoV-2 RNA (RT-PCR) Negative (Negative) Imaging Data Attestation: I personally reviewed and interpreted this imaging study as follows: Radiologist's impression: chest x-rays negative for acute process ECG Data EKG #1: Attestation: I personally reviewed and interpreted this ECG as follows: ECG completion date: 07/29/24 ECG completion time: 10:22 EKG Interpretation: tachycardia, sinus rhythm, SVT ( Questionable), no ectopy, no ST changes, normal QRS, normal QT and NL axis Discharge Plan Discharge Clinical Impression: Acute exacerbation of chronic obstructive pulmonary disease Respiratory syncytial virus (RSV) Qualifiers: RSV infection type: acute bronchiolitis Qualified Code(s): J21.0 - Acute bronchiolitis due to respiratory syncytial virus Patient Disposition: Home, Self-Care Condition: Improved Instructions: Antibiotic Form, Acute Bronchitis (ED), COPD (Chronic Obstructive Pulmonary Disease) (DC) Patient Language: Namibian Prescriptions: New methylprednisolone [Medrol (Elie)] 4 mg tablets,dose pack See Rx Instructions .ROUTE .COMPLEX Qty: 21 0RF Rx Instructions: orally per package directions azithromycin 250 mg tablet See Rx Instructions .ROUTE .COMPLEX Qty: 6 0RF Rx Instructions: For 250 mg dose pack: take 500 mg today (day 1), then 250 mg for 4 days (days 2-5) albuterol sulfate 90 mcg/actuation HFA aerosol inhaler 2 inh inhalation Q6H PRN (Reason: shortness of breath or wheezing) Qty: 6.7 0RF ipratropium-albuterol 0.5 mg-3 mg(2.5 mg base)/3 mL solution for nebulization 3 ml inhalation Q6H PRN (Reason: shortness of breath or wheezing) Qty: 90 0RF No Action losartan 50 mg tablet 50 mg PO DAILY levothyroxine 100 mcg tablet 100 mcg PO DAILY pravastatin 10 mg tablet 10 mg PO DAILY hydrochlorothiazide 25 mg tablet 25 mg PO DAILY metoprolol succinate 25 mg tablet extended release 24 hr 25 mg PO DAILY Qty: 90 2RF Eliquis 5 mg tablet 5 mg PO BID Qty: 60 5RF Follow-up/Referrals: Joseph Hernandez MD [Primary Care Provider] - Time of Disposition: 11:20
--- NOTE | 2024-07-29 09:53 | ECG_ITS ---
Test Date: 2024-07-29 09:59:37 Measurements Intervals [place] Rate: 143 P: 0 WA: 0 QRS: 70 QRSD: 87 T: 37 QT: 291 QTc: 450 Interpretive Statements SUPRAVENTRICULAR TACHYCARDIA NONSPECIFIC T-WAVE ABNORMALITY ABNORMAL RHYTHM ECG No previous ECG available for comparison Electronically Signed On 07-31-2024 12:24:58 SHOULDER JOINER by Laurie Araujo M.D.
[2024-07-29] MEDS: IPRATROPIUM 0.5 MG/ALBUTEROL SULFATE 2.5 MG AMPUL.NEB 3 ML INHALATION (10:18)
[2024-07-29] MEDS: methylPREDNISolone SOD SUCC 125 MG VIAL IV PUSH (10:18)
[2024-07-29 10:23] LABS: Basophils Absolute Auto 0.01 K/mm3 (0.00-0.10); Basophils Percent Auto 0.2 % (0.0-1.0); Eosinophils Absolute Auto 0.03 K/mm3 (0.02-0.50); Eosinophils Percent Auto 0.5 % (1.0-6.0); Hematocrit 41.1 % (35.0-42.0); Hemoglobin 13.1 g/dL (11.7-13.8); Immature Granulocyte Absolute 0.03 K/mm3 (0.00-0.00); Immature Granulocyte Percent A 0.5 % (0.0-0.0); Lymphocytes Absolute Auto 0.81 K/mm3 (1.10-4.50); Lymphocytes Percent Auto 12.5 % (18.0-42.0); Mean Corpuscular HGB Conc 31.9 g/dL (32-36); Mean Corpuscular Hemoglobin 29.9 pg (27.0-31.0); Mean Corpuscular Volume 93.8 fL (78.0-102.0); Mean Platelet Volume 10.3 fl (9.2-11.8); Monocytes Absolute Auto 0.47 K/mm3 (0.10-0.90); Monocytes Percent Auto 7.3 % (2.0-11.0); Neutrophils Absolute Auto 5.13 K/mm3 (1.70-7.20); Platelet Count Result 234 K/mm3 (150-420); Red Blood Count 4.38 M/mm3 (4.20-5.40); Red Cell Distribution Width 13.5 % (11.6-14.4); White Blood Count 6.5 K/mm3 (4.8-10.8)
--- NOTE | 2024-07-29 10:33 | PC.NURSE ---
PT IS SITTING UP ON STRETCHER TALKING WITH DAUGHTER AT THIS TIME. PT IS AWAITING RESULTS AT THIS TIME. PT REMAINS TACHYCARDIC, ERP IS AWARE. WILL CONTINUE TO MONITOR.
[2024-07-29 10:39] LABS: Partial Thromboplastin Time 27.3 Sec (23.9-30.70); Prothrombin Time 10.9 Seconds (9.50-12.1)
[2024-07-29 10:44] LABS: Lactic Acid Reflex 1.7 mmol/L (0.4-2.0)
[2024-07-29 10:46] LABS: Alanine Aminotransferase 24 U/L (14-59); Albumin Level 3.6 g/dL (3.4-5.0); Alkaline Phosphatase 108 U/L (46-116); Anion Gap 11 mmol/L (4-12); Aspartate Amino Transferase 17 U/L (15-37); Bilirubin,Total 0.3 mg/dL (0.00-1.00); Blood Urea Nitrogen 15 mg/dL (7-18); Calcium 9.2 mg/dL (8.5-10.1); Carbon Dioxide 28 mmol/L (21-32); Chloride 97 mmol/L (98-108); Estimated CRCL calculation 59 ml/min; Estimated Glomerular Filt Rate > 60; Glucose 184 mg/dL (70-99); NT Pro B Type Natriuretic Pept 151 pg/mL (0-450); Osmolality Calculated 287 mOsm/kg (285-295); Potassium 3.7 mmol/L (3.5-5.1); Sodium 136 mmol/L (136-145); Total Protein 7.1 g/dL (6.4-8.2); Troponin I 13.5 ng/L (0.00-60.4)
[2024-07-29 10:58] LABS: SARS-CoV-2 RNA PCR Negative (Negative)
[2024-07-29 11:01] LABS: Influenza A QL RT-PCR Negative (Negative); Influenza B QL RT-PCR Negative (Negative); RSV RNA, RT-PCR Positive (Negative)
--- NOTE | 2024-07-29 11:15 | PC.NURSE ---
PT DECLINES ADMISSION AT THIS TIME. REPORTS SHE IS READY TO GO HOME.
--- NOTE | 2024-07-30 15:55 | PC.NURSE ---
preliminary blood culture reviewed, no growth
--- NOTE | 2024-08-04 13:39 | PC.NURSE ---
final blood culture reports x2 reviewed. no growth after 5 days. no change in plan of care
--- OUTSIDE RECORDS SUMMARY | 2024-08-05 04:52 | XMS_ITS | Encounter Summary ---
Author Organization [facility] Address [address] [place] [address]. [place] [address] [place] [address] Care Team Providers Care Supervisor [employer] Name Role Phone Joseph Hernandez MD Primary Care Provider [phone] Encounter Details Date Type Department Care Team ([facility] st Contact Info) Description 01/19/2020 Orders Only [facility] [address] [place] [address] Adonis Khoury MD Social History Tobacco Use Types Packs/Day Years Used Date Smoking Tobacco: Never Assessed Comments Unknown Sex and Gender Information Value Date Recorded Sex Assigned at Not on file Legal Sex Female 8:27 PM CDT Gender Identity Not on file Sexual Orientation Not on file COVID-19 Exposure Response Date Recorded In the last month, have you been in contact with someone who was confirmed or suspected to have Coronavirus / COVID-19? No / Unsure 01/11/2020 10:42 AM CDT documented as of this encounter Plan of Treatment Not on file documented as of this encounter Visit Diagnoses Diagnosis Hepatic steatosis- Primary Other chronic nonalcoholic liver disease documented in this encounter Care Teams Supervisor [employer] Relationship Specialty Start Date End Date Joseph Hernandez MD [address] [place] [address] PCP - General FAMILY PRACTICE 11/23/19 documented as of this encounter
--- OUTSIDE RECORDS SUMMARY | 2024-08-05 04:52 | XMS_ITS | Encounter Summary ---
Author Organization [facility] Address [address] [place] [address]. [place], [place] [address] [place] [address] Care Team Providers Care Ticket Chopper Assembler Name Role Phone Joseph Hernandez MD Primary Care Provider [phone] Encounter Details Date Type Department Care Team (Latest Contact Info) Description 11/19/2022 Travel Social History Tobacco Use Types Packs/Day Years Used Date Smoking Tobacco: Never Assessed Comments Unknown Sex and Gender Information Value Date Recorded Sex Assigned at Not on file Legal Sex Female 8:27 PM CDT Gender Identity Not on file Sexual Orientation Not on file COVID-19 Exposure Response Date Recorded In the last 10 days, have yo u been in contact with someone who was confirmed or suspected to have Coronavirus/COVID-19? No / Unsure 11/19/2022 9:09 AM CDT documented as of this encounter Plan of Treatment Not on file documented as of this encounter Visit Diagnoses Not on filedocumented in this encounter Care Teams Ticket Chopper Assembler Relationship Specialty Start Date End Date Joseph Hernandez MD [address] [place] [address] PCP - General FAMILY PRACTICE 11/23/19 documented as of this encounter
--- OUTSIDE RECORDS SUMMARY | 2024-08-05 04:52 | XMS_ITS | Encounter Summary ---
Author Organization [facility] Address [address] [place] [address]. [place] [address] [place] [address] Care Team Providers Care Copy Preparer Name Role Phone Joseph Hernandez MD Primary Care Provider [phone] Reason for Visit * Reason Onset Date Comments Orders 03/14/2022 Encounter Details Date Type Department Care Team (Late st Contact Info) Description 03/14/2022 Telephone [facility] [address] [place] [address] Per Collins MD Orders Social History Tobacco Use Types Packs/Day Years [...] suspected to have Coronavirus/COVID-19? No / Unsure 02/12/2022 9:39 AM CDT documented as of this encounter Progress Notes * Doris Luque LPN - 03/14/2022 1:56 PM CDT Orders received from Dr. Sam for the pt to leave a urine speciman for urinalysis and a spot urine for protein and creatinine once monthly for three months. Per pt request I sent the standing order to [facility]. documented in this encounter Plan of Treatment Not on file documented as of this encounter Visit Diagnoses Diagnosis Proteinuria, unspecified type- Primary documented in this encounter Care Teams Copy Preparer Relationship Specialty Start Date End Date Joseph Hernandez MD [address] [place] [address] PCP - General FAMILY PRACTICE 11/23/19 documented as of this encounter
--- OUTSIDE RECORDS SUMMARY | 2024-08-05 04:52 | XMS_ITS | Encounter Summary ---
Author Organization [facility] Address [address] [place] [address]. [place], [place] [address] [place] [address] Care Team Providers Care Pick And Shovel Man Name Role Phone Joseph Hernandez MD Primary Care Provider [phone] Encounter Details Date Type Department Care Team (Latest Contact Info) Description 10/10/2020 Travel Social History Tobacco Use Types Packs/Day [...] have Coronavirus / COVID-19? No / Unsure 10/10/2020 10:16 AM CDT documented as of this encounter Plan of Treatment Not on file documented as of this encounter Visit Diagnoses Not on filedocumented in this encounter Care Teams Pick And Shovel Man Relationship Specialty Start Date End Date Joseph Hernandez MD [address] [place] [address] PCP - General FAMILY PRACTICE 11/23/19 documented as of this encounter
--- OUTSIDE RECORDS SUMMARY | 2024-08-05 04:52 | XMS_ITS | Encounter Summary ---
Author Organization [facility] - [facility] Address [address] [place] [address]. [place] [address] [place] [address] Care Team Providers Care Electronic Plotting System Operator Name Role Phone Joseph Hernandez MD Primary Care Provider [phone] Reason for Visit * Reason Comments Lab (SCAN) Encounter Details Date Type Department Care Team ([facility] Contact Info) Description 04/20/2020 Scan [facility] [address] [place] [address] Scanned, Documents Lab (SCAN) Social History Tobacco Use Types Packs/Day Years [...] have Coronavirus / COVID-19? No / Unsure 04/25/2020 9:26 AM CDT documented as of this encounter Plan of Treatment Not on file documented as of this encounter Procedures Procedure Name Priority Date/Time Associated Diagnosis Comments OUTSIDE LAB (SCAN ORDER) Routine 04/20/2020 documented in this encounter Results * OUTSIDE LAB (04/20/2020) 04/20/2020 us Documents Scanned SCANNING Final Result [facility] documented in this encounter Visit Diagnoses Not on filedocumented in this encounter Care Teams Electronic Plotting System Operator Relationship Specialty Start Date End Date Joseph Hernandez MD [address] [place] [address] PCP - General FAMILY PRACTICE 11/23/19 documented as of this encounter
--- OUTSIDE RECORDS SUMMARY | 2024-08-05 04:52 | XMS_ITS | Encounter Summary ---
Author Organization [facility] Address [address] [place] [address]. [place], [place] [address] [place] [address] Care Team Providers Care Rigging Slinger Name Role Phone Joseph Hernandez MD Primary Care Provider [phone] Reason for Visit * Reason Onset Date Comments Results 02/26/2022 Encounter Details Date Type Department Care Team ([facility] st Contact Info) Description 02/26/2022 Telephone [facility] [address] [place] [address] Flaco-Per Santizo MD Results Social History Tobacco Use Types Packs/Day Years [...] Progress Notes * Doris Luque LPN - 02/26/2022 10:50 AM CDT Note forwarded to Dr. Sam that Labs are in Epic for review. documented in this encounter Plan of Treatment Not on file documented as of this encounter Visit Diagnoses Not on filedocumented in this encounter Care Teams Rigging Slinger Relationship Specialty Start Date End Date Joseph Hernandez MD [address] [place] [address] PCP - General FAMILY PRACTICE 11/23/19 documented as of this encounter
--- OUTSIDE RECORDS SUMMARY | 2024-08-05 04:52 | XMS_ITS | Encounter Summary ---
Author Organization [facility] - [facility] Address [address] [place] [address]. [place] [address] [place] [address] Care Team Providers Care Drawing Supervisor Name Role Phone Joseph Hernandez MD Primary Care Provider [phone] Reason for Visit * Reason Comments Lab (SCAN) Encounter Details Date Type Department Care Team ([facility] st Contact Info) Description 03/27/2022 Scan [facility] [address] [place] [address] Scanned, Documents Lab (SCAN) Social History Tobacco Use Types Packs/Day Years Used Date Smoking Tobacco: Never Assessed Comments Unknown Sex and Gender Information Value Date Recorded Sex Assigned at Not on file Legal Sex Female 8:27 PM CDT Gender Identity Not on file Sexual Orientation Not on file documented as of this encounter Plan of Treatment Not on file documented as of this encounter Procedures Procedure Name Priority Date/Time Associated Diagnosis Comments OUTSIDE LAB (SCAN ORDER) Routine 03/15/2022 documented in this encounter Results * OUTSIDE LAB (SCAN) (03/15/2022) 03/15/2022 us Documents Scanned SCANNING Final Result [facility] documented in this encounter Visit Diagnoses Not on filedocumented in this encounter Care Teams Drawing Supervisor Relationship Specialty Start Date End Date Joseph Hernandez MD [address] [place] [address] PCP - General FAMILY PRACTICE 11/23/19 documented as of this encounter
--- OUTSIDE RECORDS SUMMARY | 2024-08-05 04:52 | XMS_ITS | Encounter Summary ---
Author Organization [facility] - [facility] Address [address] [place] [address]. [place] [address] [place] [address] Care Team Providers Care Cash Shortage Investigator Name Role Phone Joseph Hernandez MD Primary Care Provider [phone] Reason for Visit * Reason Comments Lab (SCAN) Encounter Details Date Type Department Care Team ([facility] st Contact Info) Description 04/20/2020 Scan [facility] [address] [place] [phone] Scanned, Documents Lab (SCAN) Social History Tobacco [...] 04/20/2020 us Documents Scanned SCANNING Final Result [facility] documented in this encounter Visit Diagnoses Not on filedocumented in this encounter Care Teams Cash Shortage Investigator Relationship Specialty Start Date End Date Joseph Hernandez MD [address] [place] [address] PCP - General FAMILY PRACTICE 11/23/19 documented as of this encounter
--- OUTSIDE RECORDS SUMMARY | 2024-08-05 04:52 | XMS_ITS | Encounter Summary ---
Author Organization [facility] Address [address] [place] [address]. [place] [address] [place] [address] Care Team Providers Care Gambling Monitor Name Role Phone Joseph Hernandez MD Primary Care Provider [phone] Reason for Visit * Reason Onset Date Comments Lab Order 05/21/2022 Encounter Details Date Type Department Care Team (Late st Contact Info) Description 05/21/2022 Telephone [facility] [address] [place] [address] Per Collins MD Lab Order Social History Tobacco Use Types Packs/Day Years Used Date Smoking Tobacco: Never Assessed Comments Unknown Sex and Gender Information Value Date Recorded Sex Assigned at Not on file Legal Sex Female 8:27 PM CDT Gender Identity Not on file Sexual Orientation Not on file documented as of this encounter Progress Notes * Roxanne Loya LPN - 05/21/2022 2:42 PM CDT Call pt in regards to labs of UA,SPOT ordered by Dr. HOOKS. Pt said she did labs in March but not April due to labs not being in the system. Called over to [facility] to get results and faxedover the new orders. Pt will be going this week to get them done. Pt also asked that her labs from January be mailed out to her. Labs are printed and mailed out also informed her that they are the same l abs that the Dr reviewed with her at her last visit. documented in this encounter Plan of Treatment Not on file documented as of this encounter Visit Diagnoses Not on filedocumented in this encounter Care Teams Gambling Monitor Relationship Specialty Start Date End Date Joseph Hernandez MD [address] [place] [id number] PCP - General FAMILY PRACTICE 11/23/19 documented as of this encounter
--- OUTSIDE RECORDS SUMMARY | 2024-08-05 04:52 | XMS_ITS | Encounter Summary ---
Author Organization [facility] Address [address] [place] [address]. [place], [place] [address] [place] [address] Care Team Providers Care Gang Boss Name Role Phone Joseph Hernandez MD Primary Care Provider [phone] Encounter Details Date Type Department Care Team (Latest Contact Info) Description 04/17/2021 Travel Social History Tobacco Use Types Packs/Day [...] have Coronavirus / COVID-19? No / Unsure 04/17/2021 9:04 AM CDT documented as of this encounter Plan of Treatment Not on file documented as of this encounter Visit Diagnoses Not on filedocumented in this encounter Care Teams Gang Boss Relationship Specialty Start Date End Date Joseph Hernandez MD [address] [place] [address] PCP - General FAMILY PRACTICE 11/23/19 documented as of this encounter
--- OUTSIDE RECORDS SUMMARY | 2024-08-05 04:52 | XMS_ITS | Encounter Summary ---
Author Organization [facility] Address [address] [place] [address]. [place] [address] [place] [address] Care Team Providers Care Adult Literacy Instructor Name Role Phone Joseph Hernandez MD Primary Care Provider [phone] Reason for Visit * Reason Comments Lab (SCAN) Encounter Details Date Type Department Care Team ([facility] st Contact Info) Description 02/08/2022 Scan [facility] [address] [place] [phone] Scanned, Documents Lab (SCAN) Social History Tobacco [...] Diagnosis Comments OUTSIDE LAB (SCAN ORDER) Routine 02/07/2022 documented in this encounter Results * OUTSIDE LAB (SCAN) (02/07/2022) 02/07/2022 us Documents Scanned SCANNING Final Result [facility] documented in this encounter Visit Diagnoses Not on filedocumented in this encounter Care Teams Adult Literacy Instructor Relationship Specialty Start Date End Date Joseph Hernandez MD [address] [place] [address] PCP - General FAMILY PRACTICE 11/23/19 documented as of this encounter
--- OUTSIDE RECORDS SUMMARY | 2024-08-05 04:52 | XMS_ITS | Encounter Summary ---
Author Organization [facility] Address [address] [place] [address]. [place] [address] [place] [address] Care Team Providers Care Compensation/Benefits Specialist Name Role Phone Joseph Hernandez MD Primary Care Provider [phone] Encounter Details Date Type Department Care Team (Late st Contact Info) Description 03/19/2022 Results Notification [facility] [address] [place] [address] Per Collins MD Social History Tobacco Use Types Packs/Day Years Used Date Smoking Tobacco: Never Assessed Comments Unknown Sex and Gender Information Value Date Recorded Sex Assigned at Not on file Legal Sex Female 8:27 PM CDT Gender Identity Not on file Sexual Orientation Not on file documented as of this encounter Progress Notes * Per Collins MD - 03/19/2022 6:42 PM CDT Recommendation: Will continue to monitor upc ratio as ordered before for 3 consecutive months As of February 2022: Urinalysis: 1025; 5.5; trace protein; negative blood; Random urine protein 35/random urine creatinine 80 = UPC ratio 0.44 documented in this encounter Plan of Treatment Not on file documented as of this encounter Visit Diagnoses Not on filedocumented in this encounter Care Teams Compensation/Benefits Specialist Relationship Specialty Start Date End Date Joseph Hernandez MD [address] [place] [address] PCP - General FAMILY PRACTICE 11/23/19 documented as of this encounter
--- OUTSIDE RECORDS SUMMARY | 2024-08-05 04:52 | XMS_ITS | Encounter Summary ---
Author Organization [facility] Address [address] [place] [address]. [place] [address] [place] [address] Care Team Providers Care Security Alarm Installer Name Role Phone Joseph Hernandez MD Primary Care Provider [phone] Reason for Visit * Reason Comments Lab (SCAN) Encounter Details Date Type Department Care Team (Late st Contact Info) Description 02/28/2022 Scan [facility] [address] [place] [address] Scanned, Documents Lab (SCAN) Social History [...] 02/07/2022 us Documents Scanned SCANNING Final Result [facility] documented in this encounter Visit Diagnoses Not on filedocumented in this encounter Care Teams Security Alarm Installer Relationship Specialty Start Date End Date Joseph Hernandez MD [address] [place] [address] PCP - General FAMILY PRACTICE 11/23/19 documented as of this encounter
--- OUTSIDE RECORDS SUMMARY | 2024-08-05 04:52 | XMS_ITS | Encounter Summary ---
Author Organization [facility] Address [address] [place] [address]. [place] [address] [place] [address] Care Team Providers Care Spray Stainer Name Role Phone Joseph Hernandez MD Primary Care Provider [phone] Encounter Details Date Type Department Care Team (Late st Contact Info) Description 10/23/2023 Orders Only [facility] [address] [place] [address] J Carlos Anguiano MD [address] [place] [address] Social History Tobacco Use Types Packs/Day Years Used Date Smoking Tobacco: Never Assessed Comments Unknown Sex and Gender Information Value Date Recorded Sex Assigned at Not on file Legal Sex Female 8:27 PM CDT Gender Identity Not on file Sexual Orientation Not on file documented as of this encounter Plan of Treatment Scheduled Orders Name Type Priority Associated Diagnoses Orde r Schedule CBC W/DIFF AUTOMATED Lab Routine Non-nephrotic range proteinuria Chronic kidney disease, stage I Essential hypertension Expected: 10/28/2023, Expires: 10/22/2024 COMPREHENSIVE METABOLIC PANEL Lab Routine Non-nephrotic range proteinuria Chronic kidney disease, stage I Essential hypertension Expected: 10/28/2023, Expires: 10/22/2024 PHOSPHORUS, INORGANIC PHOSPHATE Lab Routine Non-nephrotic range proteinuria Chronic kidney disease, stage I Essential hypertension Expected: 10/28/2023, Expires: 10/22/2024 URINALYSIS Lab Routine Non-nephrotic range proteinuria Chronic kidney disease, stage I Essential hypertension Expected: 10/28/2023, Expires: 10/22/2024 PROTEIN TOTAL URINE RANDOM Lab Routine Non-nephrotic range proteinuria Chronic kidney disease, stage I Essential hypertension Expected: 10/28/2023, Expires: 10/22/2024 CREATININE URINE RANDOM Lab Routine Non-nephrotic range proteinuria Chronic kidney disease, stage I Essential hypertension Expected: 10/28/2023, Expires: 10/22/2024 documented as of this encounter Visit Diagnoses Diagnosis Non-nephrotic range proteinuria- Primary Proteinuria Chronic kidney disease, stage I Chronic kidney disease, Stage I Essential hypertension Unspecified essential hypertension documented in this encounter Care Teams Spray Stainer Relationship Specialty Start Date End Date Joseph Hernandez MD [address] [place] [address] PCP - General FAMILY PRACTICE 11/23/19 documented as of this encounter
--- OUTSIDE RECORDS SUMMARY | 2024-08-05 04:52 | XMS_ITS | Encounter Summary ---
Author Organization [facility] - [facility] Address [address] [place] [address]. [place] [address] [place] [address] Care Team Providers Care Unclaimed Property Manager Name Role Phone Joseph Hernandez MD Primary Care Provider [phone] Reason for Visit * Reason Comments Lab (SCAN) Encounter Details Date Type Department Care Team ([facility] st Contact Info) Description 05/24/2022 Scan [facility] [address] [place] [phone] Scanned, Doc Cikda Lab (SCAN) Social History Tobacco Use Types [...] Diagnosis Comments OUTSIDE LAB (SCAN ORDER) Routine 05/24/2022 documented in this encounter Results * OUTSIDE LAB (SCAN) (05/24/2022) 05/24/2022 us Doc Cikda Scanned SCANNING Final Result [facility] documented in this encounter Visit Diagnoses Not on filedocumented in this encounter Care Teams Unclaimed Property Manager Relationship Specialty Start Date End Date Joseph Hernandez MD [address] [place] [address] PCP - General FAMILY PRACTICE 11/23/19 documented as of this encounter
--- OUTSIDE RECORDS SUMMARY | 2024-08-05 04:52 | XMS_ITS | Encounter Summary ---
Author Organization [facility] - [facility] Address [address] [place] [address]. [place] [address] [place] [address] Care Team Providers Care Radio Interference Trouble Shooter Name Role Phone Joseph Hernandez MD Primary Care Provider [phone] Encounter Details Date Type Department Care Team ([facility] st Contact Info) Description 02/08/2022 Scan [facility] [address] [place] [phone] Scanned, Documents Social History Tobacco Use Types Packs/Day Years [...] on filedocumented in this encounter Care Teams Radio Interference Trouble Shooter Relationship Specialty Start Date End Date Joseph Hernandez MD [address] [place] [address] PCP - General FAMILY PRACTICE 11/23/19 documented as of this encounter
--- OUTSIDE RECORDS SUMMARY | 2024-08-05 04:52 | XMS_ITS | Encounter Summary ---
Author Organization [facility] Address [address] [place] [address]. [place] [address] [place] [address] Care Team Providers Care Guidance Counselor Name Role Phone Joseph Hernandez MD Primary Care Provider [phone] Encounter Details Date Type Department Care Team (Latest Contact Info) Description 02/12/2022 10:42 AM CDT - 02/12/2022 11:59 PM CDT Hospital Encounter [facility] [address] [place] [address] Per Collins MD Discharge Disposition: Home or Self Care (Routine Discharge) Social History Tobacco Use Types Packs/Day Years [...] Procedure Name Priority Date/Time Associated Diagnosis Comments HC PROTEIN EP OTH FLUID Routine 02/13/20 11:00 AM CDT Proteinuria Chronic kidney disease, stage I HC URINALYSIS AUTO W/MICRO Routine 02/12/2022 11:00 AM CDT Proteinuria Chronic kidney disease, stage I ANCA VASCULITIS PANEL Routine 02/12/2022 10:58 AM CDT Proteinuria Chronic kidney disease, stage I HC JOSE MANUEL SCREEN Routine 02/12/2022 10:58 AM CDT Proteinuria Chronic kidney disease, stage I COMPLEMENT C4 Routine 02/12/2022 10:58 AM CDT Proteinuria Chronic kidney disease, stage I COMPLEMENT C3 Routine 02/12/2022 10:58 AM CDT Proteinuria Chronic kidney disease, stage I COMPLEMENT, TOTAL (CH50) Routine 02/12/2022 10:58 AM CDT Proteinuria Chronic kidney disease, stage I PROTEIN, ELECTROPHORESIS Routine 02/12/2022 10:58 AM CDT Proteinuria Chronic kidney disease, stage I documented in this encounter Results * (ABNORMAL) PROTEIN ELECTROPHORESIS URINE RANDOM (02/12/2022 11:00 AM CDT) PROTEIN URINE TOTAL RANDOM 18.2(H) <14 MG/DL 02/14/2022 1:36 PM CDT [facility] PROTEIN (ELP) (U) THIS URINE PEP WAS INTERPRETED BY 02/15/2022 12:56 PM CDT [facility] Comment: DR ORLANDO UPCKETT MD THERE IS MILD RANDOM PROTEINURIA, WHICH IS MAINLY ALBUMIN AND TRANSFERRIN. A MONOCLONAL PROTEIN (BENCE CASTORENA PROTEIN) IS NOT SEEN IN THIS RANDOM SAMPLE. URINE SPECIMEN / Unknown 02/12/2022 11:00 AM CDT us Per Collins MD URINE ORDERABLES Florinda l Result [facility] [address] [place] [address], [id number] * URINALYSIS (02/12/2022 11:00 AM CDT) COLOR (U) YELLOW 02/12/2022 11:44 AM CDT [facility] TRANSPARENCY CLEAR 02/12/2022 11:44 AM CDT [facility] SPECIFIC GRAVITY (U) 1.020 1.000 - 1.025 02/12/2022 11:44 AM CDT [facility] U PH 6.5 5.0 - 8.0 02/12/2022 11:44 AM CDT [facility] LEUKOCYTES (U) NEGATIVE NEGATIVE 02/12/2022 11:44 AM CDT [facility] NITRITES NEGATIVE NEGATIVE 02/12/2022 11:44 AM CDT [facility] PROTEIN (U) NEGATIVE NEGATIVE 02/12/2022 11:44 AM CDT [facility] URINE GLUCOSE NEGATIVE NEGATIVE 02/12/2022 11:44 AM CDT [facility] KETONES MG/DL (U) NEGATIVE NEGATIVE 02/12/2022 11:44 AM CDT [facility] UROBILINOGEN 0.2 <1.0 EU/DL 02/12/2022 11:44 AM CDT [facility] BILIRUBIN (U) NEGATIVE NEGATIVE 02/12/2022 11:44 AM CDT [facility] BLOOD (U) NEGATIVE NEGATIVE 02/12/2022 11:44 AM CDT [facility] WBC/HPF 0-5 0 - 5 /HPF 02/12/2022 11:44 AM CDT [facility] RBC/HPF 0-5 0 - 5 /HPF 02/12/2022 11:44 AM CDT [facility] EPI/LPF MODERATE /LPF 02/12/2022 11:44 AM CDT [facility] BACTERIA (U) 1+ /HPF 02/12/2022 11:44 AM CDT [facility] MUCUS PRESENT 02/12/2022 11:44 AM CDT [facility] URINE SPECIMEN OBTAINED BY CLEAN CATCH PROCEDURE / Unknown 02/12/2022 11:00 AM CDT us Per Collins MD URINE ORDERABLES Florinda don Result [facility] [address] [place] [address], [place] [phone] * (ABNORMAL) COMPLEMENT, TOTAL (CH50) (02/12/2022 10:58 AM CDT) COMPLEMENT CH50 >60(H) 31 - 60 U/mL 02/16/2022 2:19 PM CDT [employer] Comment: Test Performed by [employer], [employer], [address] [place] [address] Chong Sanchez M.D., Ph.D., Director of Laboratories , CLIA [id number] 02/12/2022 10:5 8 AM CDT us Per Collins MD LABORATORY Final Result Performing Organization Address City/[facility]/ZIP Co de Phone Number [address] , [place] [phone] * COMPLEMENT C4 (02/12/2022 10:58 AM CDT) COMPLEMENT C4 35 15 - 57 mg/dL 02/14/2022 9:58 PM CDT [employer] CARTERINXPOGEOFFTIL LY Comment: Test Performed by [employer], [employer], [address] [place] [address] Chong Sanchez M.D., Ph.D., Director of Laboratories , CLIA [id number] 02/12/2022 10:5 8 AM CDT us Per Collins MD LABORATORY Final Result [facility] , [place] [phone] * COMPLEMENT C3 (02/12/2022 10:58 AM CDT) Pathologist [facility] COMPLEMENT C3 155 83 - 193 mg/dL 02/14/2022 10:03 PM CDT [employer] NERI HOOKER Comment: Test Performed by Dominik Bell [employer] Melody [place], [address] [place], [place] Chong Sanchez M.D., Ph.D., Director of Laboratories , [facility] [id number] 02/12/2022 10:5 8 AM CDT Per Collins MD LABORATORY Final Result [employer] CARTERDOMINIK [address] [place], [place] , [place] [phone] * ANCA VASCULITIS PANEL (02/12/2022 10:58 AM CDT) [facility] ANCA SCREEN Negative Negative 02/20/2022 10:34 PM CDT [employer] AMMY CARRILLO Comment: ANCA Screen includes evaluation for p-ANCA, c-ANCA and atypical p-ANCA. A positive ANCA screen reflexes to titer and pattern(s), e.g., cytoplasmic pattern (c-ANCA), perinuclear pattern (p-ANCA), or atypical p-ANCA pattern. c-ANCA and p-ANCA are observed in vasculitis, whereas atypical p-ANCA is observed in IBD (Inflammatory Bowel Disease). Atypical p-ANCA is detected in about 55% to 80% of patients with ulcerative colitis but only 5% to 25% of patients with Crohn's disease. MYELOPEROXIDASE AB <1.0 <1.0 AI 2021 10:34 PM CDT [employer] AMMY CARRILLO Comment: ?Value ?? Interpretation ? <1.0 AI: No Antibody Detected ?>or=1.0 AI: Antibody Detected Autoantibodies to myeloperoxidase (MPO) are commonly associated with the following small-vessel vasculitides: microscopic polyangiitis, polyarteritis nodosa, Churg-Laila syndrome, necrotizing and crescentic glomerulonephritis and occasionally granulomatosis with polyangiitis (GPA, Barbara's). The perinuclear IFA pattern, (p-ANCA) is based largely on autoantibody to myeloperoxidase which serves as the primary antigen. These autoantibodies are present in active disease. PROTEINASE-3 AB <1.0 <1.0 AI 10:34 PM CDT [employer] AMMY CARRILLO Comment: ? Value ?Interpretation ? <1.0 AI: No Antibody Detected ?>or=1.0 AI: Antibody Detected Autoantibodies to proteinase-3 (ND-3) are accepted as characteristic for granulomatosis with polyangiitis (GPA, Barbara's), and are detectable in 95% of the histologically proven cases. The cytoplasmic IFA pattern, (c-ANCA), is based largely on autoantibody to ND-3 which serves as the primary antigen. These autoantibodies are present in active disease. Test Performed by [employer], [employer] [facility], [address] [place] [address] Chong Sanchez M.D., Ph.D., Director of Laboratories , [place] [id number] 02/12/2022 10:5 8 AM CDT us Per Collins MD LABORATORY Final Result [facility] [employer] [facility] [place] [id number] [place], [place] , * ANTINUCLEAR ANTIBODY WI RFX (02/12/2022 10:58 AM CDT) JOSE MANUEL 0.2 02/13/2022 2:16 PM CDT [facility] Comment: NEGATIVE: <0.7 RATIO JOSE MANUEL PROFILE AND TITER NOT PERFORMED THE JOSE MANUEL SCREEN TESTS FOR THE FOLLOWING ANTIBODIES BY EIA: SSA1 (RO), SSB1 (LA), ROLON, SCL70, JO1, CENTROMERE, HALL MONITOR HISTONE MUST BE ORDERED SEPARATELY DNA (DS) ANTIBODY <0.6 IU/ML 022 2:16 PM CDT [facility] Comment: NEGATIVE: <10 IU/mL EQUIVOCAL: 10 to 15 IU/mL POSITIVE: >15 IU/mL THIS QUANTITATIVE ASSAY IS CALIBRATED TO THE [employer]'S WO/80 STANDARD. THE LEVEL OF dsDNA AUTOANTIBODY GERERALLY CORRELATES WITH THE LEVEL OF DISEASE ACTIVITY IN SYSTEMIC LUPUS ERYTHMATOSUS 02/12/2022 10:5 8 AM CDT Per Collins MD LABORATORY Final Result [facility] [address] [place] [id number], [id number] * PROTEIN, ELECTROPHORESIS (02/12/2022 10:58 AM CDT) TOTAL PROTEIN (ELECTROPHORESIS SERUM) 7.1 6.0 - 8.3 G/DL 02/14/2022 1:36 PM CDT [facility] ALBUMIN ELECTROPHORESIS S/P/B 4.1 3.4 - 4.9 G/DL 02/14/2022 1:31 PM CDT [facility] [id number] S/P/B 0.3 0.2 - 0.4 G/DL 02/14/2022 1:31 PM CDT [facility] [id number] S/P/B 0.8 0.4 - 1.0 G/DL 02/14/2022 1:31 PM CDT [facility] BETA GLOBULIN S/P/B 0.9 0.5 - 1.2 G/DL 02/14/2022 1:31 PM CDT [facility] GAMMA GLOBULIN S/P/B 1.0 0.6 - 1.6 G/DL 02/14/2022 1:31 PM CDT [facility] ELECTROPHORESIS INTERPRETATION THIS SERUM PEP WAS INTERPRETED BY 02/15/2022 12:56 PM CDT [facility] Comment: DR ORLANDO PUCKETT MD THE TOTAL SERUM PROTEIN IS NORMAL. ELECTROPHORESIS IDENTIFIES NO QUANTITATIVE ABNORMALITIES WITHIN THE PROTEIN FRACTIONS. MONOCLONAL PROTEINS ARE NOT DETECTED. 02/12/2022 10:5 8 AM CDT Per Collins MD LABORATORY Final Result [facility] [address] [place] [address], [place] [phone] documented in this encounter Visit Diagnoses Diagnosis Proteinuria Chronic kidney disease, stage I Chronic kidney disease, Stage I documented in this encounter Care Teams Guidance Counselor Relationship Specialty Start Date End Date Joseph Hernandez MD [address] [place], [place] [id number] PCP - General FAMILY PRACTICE 11/23/19 documented as of this encounter
--- OUTSIDE RECORDS SUMMARY | 2024-08-05 04:52 | XMS_ITS | Encounter Summary ---
Author Organization [facility] Address [address] [place] [address]. [place] [address] [place] [address] Care Team Providers Care Patient Service Rep Name Role Phone Blossom Roberto MD Primary Care Provider [phone] Reason for Visit * Reason Comments CKD Follow-up Pt is here for a one year f/u. Encounter Details Date Type Department Care Team (Late st Contact Info) Description 11/19/2022 9:15 AM CDT Office Visit [facility] [address] [place] [address] Per Collins MD CKD Follow-up (Pt is here for a one year f/u.) Social History Tobacco Use Types Packs/Day Years [...] AM CDT documented as of this encounter Last Filed Vital Signs Vital Sign Reading Time Taken Comments Blood Pressure 131/61 11/19/2022 9:37 AM CDT Pulse 66 11/19/2022 9:37 AM CDT Temperature - - Respiratory Rate - - Oxygen Saturation - - Inhaled Oxygen Concentration - - Weight 85.3 kg (188 lb) 11/19/2022 9:37 AM CDT Height 160 cm (5' 3 ) 11/19/2022 9:37 AM CDT Body Mass Index 33.3 11/19/2022 9:37 AM CDT documented in this encounter Progress Notes * Per Collins MD - 11/19/2022 9:15 AM CDT [facility] Office Follow Up Progress Note Chief complaint: Follow-up visit Problem list: 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 Sam Ellen Ibarra is a 76-year-old female who presents for follow up of her chronic kidney disease. Since the last visit, she has done well with no recent hospitalizations or acute illness. She does not check her blood sugars at home. She does not check her blood pressures at home. No fevers or chills Patient has no specific complaints today. Reports of being compliant with all her Medications. 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 + hypertensive nephrosclerosis proteinuria most recent UPC ratio is 0.51 which is similar to 0.4- 0.6 g proteinuria in the last 2 years Her latest hemoglobin A1c is 6.2 and serum glucose is 147 About hypertension control, Home blood pressure/pulse readings apparently 130S In the office his blood pressure runs 131/61 Currently on On losartan 50 mg daily HCTZ 25 mg daily No edema noted About Urinary Symptoms, Denies any complaints of hematuria dysuria oliguria or polyuria or polydipsia or passing any kidneystones or frothy urine Denies any obstructive urinary symptoms except for nocturia ??0-3 and occasional stress incontinence Denies any use of NSAIDs Denies recent exposure to IV contrast dye Denies any rash or oral or nasal lesions or bleeding episodes Negative for any uremic symptoms of metallic taste in the mouth or aversion to meat or meat products Endorses compliance to medications and dietary restrictions REVIEW OF SYSTEMS: Review of systems is unremarkable No hx of fever, cold, cough, chest pain, shortness of breath, palpitations No hx of nausea, vomiting, diarrhea, abdominal pain, No hx of headache, dizziness, syncopal episodes, seizures No hx of blurring of vision or visual changes No hx of muscle aches or cramps Allergies: NKDA per patient Current medications: Pravastatin 10 mg daily HCTZ 25 mg daily Losartan potassium 50 mg Levothyroxine Current Outpatient Medications: albuterol sulfate HFA 108 (90 Base) MCG/ACT inhaler, , Disp: , Rfl: hydroCHLOROthiazide (HYDRODIURIL) 25 MG tablet, Take 25 mg by mouth every morning., Disp: , Rfl: levothyroxine (SYNTHROID) 100 MCG tablet, Take 100 mcg by mouth every morning., Disp: , Rfl: losartan (COZAAR) 50 MG tablet, Take 50 mg by mouth daily., Disp: , Rfl: pravastatin (PRAVACHOL) 10 MG tablet, Take 10 mg by mouth nightly at bedtime., Disp: , Rfl: PHYSICAL EXAMINATION: CONSTITUTIONAL: Fair built HEENT: Normocephalic, atraumatic. No jugular venous distention, thyromegaly or lymphadenopathy. EYES: no icterus, no discharge CARDIOVASCULAR SYSTEM: S1 S2 heard No rubs. RESPIRATORY SYSTEM: Bilateral AE Fair, no rales no wheezing ABDOMEN: Soft, No tenderness, bs positive. NERVOUS SYSTEM: Awake, alert. No gross focal neurological signs. EXTREMITIES:chronic venous stasis pedal edema. Moving all limbs. Diagnostic Studies : Recent Labs reviewed: As of Today day of OV 11/19/2022 PROTEIN URINE TOTAL RANDOM <11.9 MG/DL 34.0 High CREAT RANDOM (U) MG/DL 79.4 Comment: REFERENCE RANGE NOT ESTABLISHED PROTEIN/CREATININE RATIO 0.4 As of October 2022: Na 140; K 4.8; bicarb 28; s.cr 0.62; eGFR >60; Glu 117; ca 9.0; alb 3.6 SPEP no M Tano UPEP no M spike As of Apr 2022 Upc 0.5 Urinalysi 1010; 6.0; neg pr, neg bld, neg mundo As of January 2022: WBC 7.0; hemoglobin 14.2; platelets 227; Sodium 138; potassium 3.8; calcium 9.1; bicarbonate 26; BUN 14; creatinine 0.69; phosphorus 3.3; glucose 147; albumin 3.3; hemoglobin A1c 6.2; Urine protein 21/urine creatinine 41= UPC ratio 0.51 Component 02/12/2022 COLOR (U) YELLOW TRANSPARENCY CLEAR Specific [place] (U) 1.020 U PH 6.5 LEUKOCYTE ESTERASE NEGATIVE NITRITES NEGATIVE PROTEIN (U) NEGATIVE URINE GLUCOSE NEGATIVE U KETONES NEGATIVE UROBILINOGEN 0.2 BILIRUBIN (U) NEGATIVE BLOOD NEGATIVE WBC/HPF 0-5 RBC/HPF 0-5 EPI/LPF MODERATE BACTERIA (URINE) 1+ MUCUS PRESENT Component 02/12/2022 ANCA SCREEN Negative MYELOPEROXIDASE AB <1.0 PROTEINASE-3 AB <1.0 JOSE MANUEL 0.2 DNA (DS) ANTIBODY <0.6 PROTEIN, URINE TOTAL 18.2 (H) URINE PROTEIN (ELP) (U) THIS URINE PEP WAS INTERPRETED BY COMPLEMENT C3 155 COMPLEMENT C4 35 COMPLEMENT CH50 >60 (H) As of mar 2021: Creatinine 0.5 UPC is 0.4 g/gram [prior UPC has been between 0.2 g/grams-0.6 g/gram] as of December 2019: Component 01/11/2020 SODIUM 141 POTASSIUM 4.4 CHLORIDE S/P/B 102 CO2 30.7 GLUCOSE 88 BUN 15 CREATININE S/P/B 0.64 CALCIUM 9.8 ALBUMIN S/P/B 3.9 PHOSPHORUS 4.0 ANION GAP 8.3 OSMOLALITY (CALC) 292 eGFR Non-Afr. Amer. 88 (L) eGFR Afr. Amer. >90 GFR NOTES GFR REFERENCES: EPI/HPF MANY PROTEIN, URINE RANDOM 23.0 (H) CREATININE (U) 39.9 PROTEIN/CREATININE RATIO MG/MG 0.6 ? 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 Patient is not interested in kidney biopsy can Patient is supposedly on losartan for proteinuria but patient does not remember the dose Avoid nephrotoxic agents Renal dose medications It is imperative that the patient has optimal hypertension and glycemic control to avoid progression of chronic kidney disease Follow renal function # Sub-nephrotic range proteinuria Stable UPC ratio at 0.4 currently fluctuating between 0.4-0.6 for the last 2 years like Likely this is secondary to NSAID use NSAID nephropathy Patient also has currently diabetes melitis managed on diet management only Patient on losartan dose to be verified # Electrolytes Adequate ; Monitor electrolytes and magnesium periodically for supplement needs #Acid base balance: Serum bicarbonate at goal; Monitor serum bicarbonate levels for supplement needs # 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, phosphorus, intact PTH and 25-hydroxy vitamin D levels periodically For supplementation needs #Nutritional status: Fair appetite; decreased serum albumin levels at 3.3 monitor serum albumin levels periodically #Anemia: optimal hemoglobin noted Monitor hemoglobin and iron panel to assess for supplement needs # Hypertension/ Fluid status: Pt reports Home BP 120s according to the patient No edema Currently on following regimen: On losartan 50 mg daily HCTZ 25 mg daily Avoid hypotension/Avoid volume depletion Home blood pressure/pulse readings to be provided to us so we could adjust medications # Diabetes mellitus On diet management only not on any medications Mx Per PCP #Osteoarthritis Prefer nonnephrotoxic agents for pain management Management per primary team Discussed with patient at length Questions answered Verbalizes understanding Today Urine protein and cr, upc ratio RTC in 12 Months With prior labs CBC, iron profile Renal function panel, magnesium, uric acid 25 hydroxyvitamin D and intact PTH Urinalysis Urine protein, creatinine and ratio Thank you for allowing us to participate in the care of this patient. 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
--- OUTSIDE RECORDS SUMMARY | 2024-08-05 04:52 | XMS_ITS | Encounter Summary ---
Author Organization [facility] Address [address] [place] [address]. [place], [place] [address] [place] [address] Care Team Providers Care Shuttle Repairer Name Role Phone Joseph Hernandez MD Primary Care Provider [phone] Encounter Details Date Type Department Care Team (Latest Contact Info) Description 02/12/2022 Travel Social History Tobacco Use Types Packs/Day [...] on filedocumented in this encounter Care Teams Shuttle Repairer Relationship Specialty Start Date End Date Joseph Hernandez MD [address] [place] [address] PCP - General FAMILY PRACTICE 11/23/19 documented as of this encounter
--- OUTSIDE RECORDS SUMMARY | 2024-08-05 04:52 | XMS_ITS | Encounter Summary ---
Author Organization [facility] Address [address] [place] [address]. [place] [address] [place] [address] Care Team Providers Care Automotive Technician Instructor Name Role Phone Joseph Hernandez MD Primary Care Provider [phone] Reason for Visit * Reason Onset Date Comments Lab Results 05/25/2022 Encounter Details Date Type Department Care Team ([facility] st Contact Info) Description 05/25/2022 Telephone [facility] [address] [place] [address] Flaco-Per Santizo MD Lab Results Social History Tobacco Use Types Packs/Day Years Used Date Smoking Tobacco: Never Assessed Comments Unknown Sex and Gender Information Value Date Recorded Sex Assigned at Not on file Legal Sex Female 8:27 PM CDT Gender Identity Not on file Sexual Orientation Not on file documented as of this encounter Progress Notes * Roxanne Loya LPN - 05/25/2022 2:[address] Sam reviewed scanned labs from 05/24/22. No new orders received. documented in this encounter Plan of Treatment Not on file documented as of this encounter Visit Diagnoses Not on filedocumented in this encounter Care Teams Automotive Technician Instructor Relationship Specialty Start Date End Date Joseph Hernandez MD [address] [place] [address] PCP - General FAMILY PRACTICE 11/23/19 documented as of this encounter
--- OUTSIDE RECORDS SUMMARY | 2024-08-05 04:52 | XMS_ITS | Encounter Summary ---
Author Organization [facility] Address [address] [place] [address]. [place] [address] [place] [address] Care Team Providers Care Milk Powder Grinder Name Role Phone Joseph Hernandez MD Primary Care Provider [phone] Encounter Details Date Type Department Care Team ([facility] st Contact Info) Description 10/10/2020 Scan [facility] [address] [place] [address] [phone] Scanned, Documents Social History Tobacco Use Types [...] on filedocumented in this encounter Care Teams Milk Powder Grinder Relationship Specialty Start Date End Date Joseph Hernandez MD [address] [place] [address] PCP - General FAMILY PRACTICE 11/23/19 documented as of this encounter
--- OUTSIDE RECORDS SUMMARY | 2024-08-05 04:52 | XMS_ITS | Encounter Summary ---
Author Organization [facility] Address [address] [place] [address]. [place] [address] [place] [address] Care Team Providers Care Freight Tallier Name Role Phone Joseph Hernandez MD Primary Care Provider [phone] Encounter Details Date Type Department Care Team (Late st Contact Info) Description 02/12/2022 Orders Only [facility] [address] [place] [address] Per Collins MD Social History Tobacco [...] on file documented as of this encounter Results * (ABNORMAL) PROTEIN ELECTROPHORESIS URINE RANDOM (02/12/2022 11:00 AM CDT) PROTEIN URINE TOTAL RANDOM 18.2(H) <14 MG/DL 02/14/2022 1:36 PM CDT [facility] PROTEIN (ELP) (U) THIS URINE PEP WAS INTERPRETED BY 02/15/2022 12:56 PM CDT [facility] Comment: DR ORLANDO PUCKETT MD THERE IS MILD RANDOM PROTEINURIA, WHICH IS MAINLY ALBUMIN AND TRANSFERRIN. A MONOCLONAL PROTEIN (BENCE CASTORENA PROTEIN) IS NOT SEEN IN THIS RANDOM SAMPLE. URINE SPECIMEN / Unknown 02/12/2022 11:00 AM CDT us Per Collins MD URINE ORDERABLES Florinda ochoa Result [facility] [address] [place] [address], [id number] * URINALYSIS (02/12/2022 11:00 AM CDT) COLOR (U) YELLOW 02/12/2022 11:44 AM CDT [facility] TRANSPARENCY CLEAR 02/12/2022 11:44 AM CDT [facility] SPECIFIC GRAVITY (U) 1.020 1.000 - 1.025 02/12/2022 11:44 AM CDT [facility] U PH 6.5 5.0 - 8.0 02/12/2022 11:44 AM CDT [facility] LEUKOCYTES (U) NEGATIVE NEGATIVE 02/12/2022 11:44 AM CDT [facility] NITRITES NEGATIVE NEGATIVE 02/12/2022 11:44 AM CDT [facility] PROTEIN (U) NEGATIVE NEGATIVE 02/12/2022 11:44 AM CDT [facility] URINE GLUCOSE NEGATIVE NEGATIVE 02/12/2022 11:44 AM CDT [facility] KETONES MG/DL (U) NEGATIVE NEGATIVE 02/12/2022 11:44 AM CDT [facility] UROBILINOGEN 0.2 <1.0 EU/DL 02/12/2022 11:44 AM CDT [facility] BILIRUBIN (U) NEGATIVE NEGATIVE 02/12/2022 11:44 AM CDT [facility] BLOOD (U) NEGATIVE NEGATIVE 02/12/2022 11:44 AM CDT [facility] WBC/HPF 0-5 0 - 5 /HPF 02/12/2022 11:44 AM CDT [facility] RBC/HPF 0-5 0 - 5 /HPF 02/12/2022 11:44 AM CDT [facility] EPI/LPF MODERATE /LPF 02/12/2022 11:44 AM CDT [facility] BACTERIA (U) 1+ /HPF 02/12/2022 11:44 AM CDT [facility] MUCUS PRESENT 02/12/2022 11:44 AM CDT [facility] URINE SPECIMEN OBTAINED BY CLEAN CATCH PROCEDURE / Unknown 02/12/2022 11:00 AM CDT Per Collins MD URINE ORDERABLES Florinda l Result [facility] [address] [place] [address], [place] [phone] * (ABNORMAL) COMPLEMENT, TOTAL (CH50) (02/12/2022 10:58 AM CDT) COMPLEMENT CH50 >60(H) 31 - 60 U/mL 02/16/2022 2:19 PM CDT [facility] Comment: Test Performed by [employer], [employer], [address] [place] [address] Chong Sanchez M.D., Ph.D., Director of Laboratories , [facility] [id number] 02/12/2022 10:5 8 AM CDT Per Collins MD LABORATORY Final Result Performing Organization Address City/[facility]/ZIP Co de Phone Number [employer] [address] [place] [address], [place] [phone] * COMPLEMENT C4 (02/12/2022 10:58 AM CDT) COMPLEMENT C4 35 15 - 57 mg/dL 02/14/2022 9:58 PM CDT [facility] Guy NationCHANCETIL LY Comment: Test Performed by [employer], [employer], [address] [place] [address] Chong Sanchez M.D., Ph.D., Director of Laboratories , CLIA [id number] 02/12/2022 10:5 8 AM CDT us Per Collins MD LABORATORY Final Result Performing Organization Address City/[facility]/ZIP Co de Phone Number [employer] , [place] [phone] * COMPLEMENT C3 (02/12/2022 10:58 AM CDT) Pathologist [facility] COMPLEMENT C3 155 83 - 193 mg/dL 02/14/2022 10:03 PM CDT [facility] NERI HOOKER Comment: Test Performed by [employer], [facility], [address] [place] [address] Chong Sanchez M.D., Ph.D., Director of Laboratories , CLIA [id number] 02/12/2022 10:5 8 AM CDT us Per Collins MD LABORATORY Final Result Performing Organization Address [facility]/ZIP Co de Phone Number [facility] [address] , [place] [phone] * ANCA VASCULITIS PANEL (02/12/2022 10:58 AM CDT) Pathologist [facility] ANCA SCREEN Negative Negative 02/20/2022 10:34 PM CDT [facility] AMMY CARRILLO Comment: ANCA Screen includes evaluation [...] <1.0 <1.0 AI 2021 10:34 PM CDT [facility] AM[facility] Comment: ?Value ?? Interpretation ? [...] in active disease. PROTEINASE-3 AB <1.0 <1.0 10:34 PM CDT [facility] AM[facility] CAR[facility] Comment: ? Value ?Interpretation ? <1.0 AI: No Antibody Detected ?>or=1.0 AI: Antibody Detected Autoantibodies to proteinase-3 (NV-3) are accepted as characteristic for granulomatosis with polyangiitis (GPA, Barbara's), and are detectable in 95% of the histologically proven cases. The cytoplasmic IFA pattern, (c-ANCA), is based largely on autoantibody to NV-3 which serves as the primary antigen. These autoantibodies are present in active disease. Test Performed by [employer] [place], [employer] [facility], [address] [place], [place] Chong Sanchez M.D., Ph.D., Director of Laboratories , [facility] [id number] 02/12/2022 10:5 8 AM CDT Per Collins MD LABORATORY Final Result [facility] [address] [place], [place] , [place] [phone] * ANTINUCLEAR ANTIBODY WI RFX (02/12/2022 10:58 AM CDT) JOSE MANUEL 0.2 02/13/2022 2:16 PM CDT [facility] Comment: NEGATIVE: <0.7 RATIO JOSE MANUEL PROFILE AND TITER NOT PERFORMED THE JOSE MANUEL SCREEN TESTS FOR THE FOLLOWING ANTIBODIES BY EIA: SSA1 (RO), SSB1 (LA), ROLON, SCL70, JO1, CENTROMERE, BOX CLOSING MACHINE OPERATOR HISTONE MUST BE ORDERED SEPARATELY DNA (DS) ANTIBODY <0.6 IU/ML 022 2:16 PM CDT [facility] Comment: NEGATIVE: <10 IU/mL EQUIVOCAL: 10 to 15 IU/mL POSITIVE: >15 IU/mL THIS QUANTITATIVE ASSAY IS CALIBRATED TO THE [employer]'S WO/80 STANDARD. THE LEVEL OF dsDNA AUTOANTIBODY GERERALLY CORRELATES WITH THE LEVEL OF DISEASE ACTIVITY IN SYSTEMIC LUPUS ERYTHMATOSUS 02/12/2022 10:5 8 AM CDT Per Collins MD LABORATORY Final Result [facility] [address] [place] [address], [place] [phone] [id number] * PROTEIN, ELECTROPHORESIS (02/12/2022 10:58 AM CDT) TOTAL PROTEIN (ELECTROPHORESIS SERUM) 7.1 6.0 - 8.3 G/DL 02/14/2022 1:36 PM CDT [facility] ALBUMIN ELECTROPHORESIS S/P/B 4.1 3.4 - 4.9 G/DL 02/14/2022 1:31 PM CDT [facility] [id number] S/P/B 0.3 0.2 - 0.4 G/DL 02/14/2022 1:31 PM CDT [facility] [id number] S/P/B 0.8 0.4 - 1.0 G/DL 02/14/2022 1:31 PM CDT [facility] BETA GLOBULIN S/P/B 0.9 0.5 - 1.2 G/DL 02/14/2022 1:31 PM CDT [facility] GAMMA GLOBULIN S/P/B 1.0 0.6 - 1.6 G/DL 02/14/2022 1:31 PM T [facility] ELECTROPHORESIS INTERPRETATION THIS SERUM PEP WAS INTERPRETED BY 02/15/2022 12:56 PM CDT [facility] Comment: DR ORLANDO PUCKETT MD THE TOTAL SERUM PROTEIN IS NORMAL. ELECTROPHORESIS IDENTIFIES NO QUANTITATIVE ABNORMALITIES WITHIN THE PROTEIN FRACTIONS. MONOCLONAL PROTEINS ARE NOT DETECTED. 02/12/2022 10:5 8 AM CDT Per Collins MD LABORATORY Final Result [facility] [address] [place] [address], [id number] documented in this encounter Visit Diagnoses Diagnosis Proteinuria- Primary Chronic kidney disease, stage I Chronic kidney disease, Stage I documented in this encounter Care Teams Freight Tallier Relationship Specialty Start Date End Date Joseph Hernandez MD [address] [place] [address] PCP - General FAMILY PRACTICE 11/23/19 documented as of this encounter
--- OUTSIDE RECORDS SUMMARY | 2024-08-05 04:52 | XMS_ITS | Encounter Summary ---
Author Organization [facility] Address [address] [place] [address]. [place] [address] [place] [address] Care Team Providers Care Mental Health Professional Name Role Phone Joseph Hernandez MD Primary Care Provider [phone] Encounter Details Date Type Department Care Team (Late st Contact Info) Description 11/19/2022 Orders Only [facility] [address] [place] [address] Per Collins MD Social History [...] of this encounter Results * (ABNORMAL) PROTEIN CREAT RATIO URINE (11/19/2022 10:33 AM CDT) PROTEIN URINE TOTAL RANDOM 34.0(H) <11.9 MG/DL 11/19/2022 11:51 AM CDT [facility] CREATININE RANDOM (U) 79.4 MG/DL 11/19/2022 11:51 AM CDT [facility] Comment:REFERENCE RANGE NOT ESTABLISHED PROTEIN/CREATINI NE RATIO 0.4 11/19/2022 11:51 AM CDT [facility] Comment:CALCULATED VALUE. [facility] ANDARD REFERENCE RANGE HAS NOT BEEN ESTABLISHED. URINE SPECIMEN / Unknown 11/19/2022 10:33 AM CDT us Per Collins MD URINE ORDERABLES Florinda ochoa Result [facility] [address] [place] [address], documented in this encounter Visit Diagnoses Diagnosis Proteinuria- Primary documented in this encounter Care Teams Mental Health Professional Relationship Specialty Start Date End Date Joseph Hernandez MD [address] [place] [address] PCP - General FAMILY PRACTICE 11/23/19 documented as of this encounter
--- OUTSIDE RECORDS SUMMARY | 2024-08-05 04:52 | XMS_ITS | Encounter Summary ---
Author Organization [facility] Address [address] [place] [address]. [place] [address] [place] [address] Care Team Providers Care Technical Editor Name Role Phone Joseph Hernandez MD Primary Care Provider [phone] Encounter Details Date Type Department Care Team (Late st Contact Info) Description 03/13/2022 Results Notification [facility] [address] [place] [address] Per Collins MD Social History Tobacco [...] Progress Notes * Per Collins MD - 03/13/2022 10:49 PM CDT RECOMMENDATIONS: 1] urinalysis every month ??3 2] urine protein creatinine ratio every month ??3 As of January 2022: Component 02/12/2022 COLOR (U) YELLOW TRANSPARENCY CLEAR Specific [place] (U) 1.020 U PH 6.5 LEUKOCYTE ESTERASE NEGATIVE NITRITES NEGATIVE PROTEIN (U) NEGATIVE URINE GLUCOSE NEGATIVE U KETONES NEGATIVE UROBILINOGEN 0.2 BILIRUBIN (U) NEGATIVE BLOOD NEGATIVE WBC/HPF 0-5 RBC/HPF 0-5 EPI/LPF MODERATE BACTERIA (URINE) 1+ MUCUS PRESENT TOTAL PROTEIN (S) 7.1 ALBUMIN ELECTROPHORESIS S/P/B 4.1 [id number]-[id number] S/P/B 0.3 [id number] S/P/B 0.8 BETA GLOBULIN S/P/B 0.9 GAMMA GLOBULIN S/P/B 1.0 ELECTROPHORESIS INTERPRETATION THIS SERUM PEP WAS INTERPRETED BY ANCA SCREEN Negative MYELOPEROXIDASE AB <1.0 PROTEINASE-3 AB <1.0 JOSE MANUEL 0.2 DNA (DS) ANTIBODY <0.6 PROTEIN, URINE TOTAL 18.2 (H) URINE PROTEIN (ELP) (U) THIS URINE PEP WAS INTERPRETED BY COMPLEMENT C3 155 COMPLEMENT C4 35 COMPLEMENT CH50 >60 (H) documented in this encounter Plan of Treatment Not on file documented as of this encounter Visit Diagnoses Not on filedocumented in this encounter Care Teams Technical Editor Relationship Specialty Start Date End Date Joseph Hernandez MD [address] [place] [address] PCP - General FAMILY PRACTICE 11/23/19 documented as of this encounter
--- OUTSIDE RECORDS SUMMARY | 2024-08-05 04:52 | XMS_ITS | Encounter Summary ---
Author Organization [facility] Address [address] [place] [address]. [place] [address] [place] [address] Care Team Providers Care Builder'S Labourer Name Role Phone Joseph Hernandez MD Primary Care Provider [phone] Encounter Details Date Type Department Care Team (Latest Contact Info) Description 11/19/2022 10:29 AM CDT - 11/19/2022 11:59 PM CDT Hospital Encounter [facility] [address] [place] [address] Per Collins MD Discharge Disposition: Home or [...] AM CDT documented as of this encounter Medications at Time of Discharge albuterol sulfate HFA 108 (90 Base) MCG/ACT inhaler 11/16/2022 hydroCHLOROthiazi de (HYDRODIURIL) 25 MG tablet Take 25 mg by mouth every morning. levothyroxine (SYNTHROID) 100 MCG tablet Take 100 mcg by mouth every morning. losartan (COZAAR) 50 MG tablet Take 50 mg by mouth daily. pravastatin (PRAVACHOL) 10 MG tablet Take 10 mg by mouth nightly at bedtime. ferrous sulfate EC 324 (65 Fe) MG tablet Take 324 mg by mouth daily with breakfast. 11/26/2022 fluticasone propionate (FLONASE) 50 MCG/ACT nasal spray 1 spray by Nasal route daily. 11/26/2022 furosemide (LASIX) 20 MG tablet Take 20 mg by mouth daily. 11/26/2022 lisinopril (PRINIVIL) 5 MG tablet Take 5 mg by mouth daily. 11/26/2022 vitamin D3 (CHOLECALCIFEROL) 25 mcg tablet Take 1 tablet by mouth daily. 11/26/2022 vitamin E 180 MG (400 UNIT) capsule Take 180 mg by mouth daily. 11/26/2022 documented as of this encounter Plan of Treatment Not on file documented as of this encounter Procedures Procedure Name Priority Date/Time Associated Diagnosis Comments HC CREATININE OTH SOURCE Routine 11/19/2022 10:33 AM CDT Proteinuria documented in this encounter Results * (ABNORMAL) PROTEIN CREAT RATIO URINE (11/19/2022 10:33 AM CDT) PROTEIN URINE TOTAL RANDOM 34.0(H) <11.9 MG/DL 11/19/2022 11:51 AM CDT [facility] CREATININE RANDOM (U) 79.4 MG/DL 11/19/2022 11:51 AM CDT [facility] Comment:REFERENCE RANGE NOT ESTABLISHED PROTEIN/CREATINI NE RATIO 0.4 11/19/2022 11:51 AM CDT [facility] Comment:CALCULATED VALUE. ST ANDARD REFERENCE RANGE HAS NOT BEEN ESTABLISHED. URINE SPECIMEN / Unknown 11/19/2022 10:33 AM CDT us Per Collins MD URINE ORDERABLES Florinda ochoa Result [facility] [address] [place] [address], documented in this encounter Visit Diagnoses Diagnosis Proteinuria documented in this encounter Care Teams Builder'S Labourer Relationship Specialty Start Date End Date Joseph Hernandez MD [address] [place] [address] PCP - General FAMILY PRACTICE 11/23/19 documented as of this encounter
--- OUTSIDE RECORDS SUMMARY | 2024-08-05 04:52 | XMS_ITS | Clinical Summary ---
Author Organization [facility] Address [address] [place] [address]. [place] [address] [place] [address] Care Team Providers Care Jig Grinder Set Up Operator Name Role Phone Joseph Hernandez MD Primary Care Provider [phone] Medications albuterol sulfate HFA 108 (90 Base) MCG/ACT inhaler 11/16/2022 Act nikia hydroCHLOROthia zide (HYDRODIURIL) 25 MG tablet Take 25 mg by mouth every morning. Active losartan (COZAAR) 50 MG tablet Take 50 mg by mouth daily. Active levothyroxine (SYNTHROID) 100 MCG tablet Take 100 mcg by mouth every morning. Active pravastatin (PRAVACHOL) 10 MG tablet Take 10 mg by mouth nightly at bedtime. Active Active Problems Problem Noted Date Diagnosed Date Osteoarthritis, unspecified osteoarthritis type, unspecified site 03/12/2022 Diabetes mellitus without complication (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) 03/12/2022 Non-nephrotic range proteinuria 03/11/2022 Essential hypertension 03/11/2022 Chronic kidney disease, stage I 03/11/2022 Social History Tobacco Use Types Packs/Day Years Used Date Smoking Tobacco: Never Assessed Comments Unknown Sex and Gender Information Value Date Recorded Sex Assigned at Not on file Legal Sex Female 8:27 PM CDT Gender Identity Not on file Sexual Orientation Not on file Last Filed Vital Signs Vital Sign Reading [...] Mass Index 33.3 11/19/2022 9:37 AM CDT Plan of Treatment Health Maintenance Due Date Last Done Comments Kidney Health Evaluation 1945 Hemoglobin A1C 1945 Lipid Panel 1945 Diabetes: Retinopathy Eye Exam 1963 Hepatitis C 1963 DTaP, Tdap and Td Vaccines ( 1 - Tdap) 1964 Zoster Vaccines (1 of 2) 1995 Annual Medicare Wellness Visit 2010 Dexa Scan (General) 2010 Pneumococcal Vaccine: 65+ Years (2 of 2 - PPSV23 or PCV20) 12/12/2015 10/17/2015 RSV Immunization or 60+ Years (1 - 1-dose 75+ series) 2020 COVID-19 Vaccine (3 - 2023-2 5 season) 2024 09/23/2020, 09/02/2020 Influenza Adult (#1) 2024 Meningococcal Vaccine Aged Out No estephania selena eligible based on patient's age to complete this topic RSV Immunizations Under 20 Months Aged Out No longer eligible b ased on patient's age to complete this topic Insurance AET AETNA Care Teams Jig Grinder Set Up Operator Relationship Specialty Start Date End Date Joseph Hernandez MD [address] [place] [address] PCP - General FAMILY PRACTICE 11/23/19
--- OUTSIDE RECORDS SUMMARY | 2024-08-05 04:52 | XMS_ITS | Encounter Summary ---
Author Organization [facility] Address [address] [place] [address]. [place], [place] [address] [place] [address] Care Team Providers Care Duty Officer Name Role Phone Joseph Hernandez MD Primary Care Provider Encounter Details Date Type Department Care Team (Late st Contact Info) Description 05/21/2022 Orders Only [facility] [address] [place] [address] Per Collins MD Social History Tobacco Use [...] Visit Diagnoses Diagnosis Proteinuria, unspecified type- Primary Chronic kidney disease, stage I Chronic kidney disease, Stage I Essential hypertension Unspecified essential hypertension documented in this encounter Care Teams Duty Officer Relationship Specialty Start Date End Date Joseph Hernandez MD [address] [place] [address] PCP - General FAMILY PRACTICE 11/23/19 documented as of this encounter
--- OUTSIDE RECORDS SUMMARY | 2024-08-05 04:52 | XMS_ITS | Encounter Summary ---
Author Organization [facility] Address [address] [place] [address]. [place] [address] [place] [address] Care Team Providers Care Director Systems Name Role Phone Joseph Hernandez MD Primary Care Provider [phone] Encounter Details Date Type Department Care Team ([facility] st Contact Info) Description 01/19/2020 Orders Only [facility] [address] [id number] Adonis Khoury MD Social History Tobacco Use [...] as of this encounter Visit Diagnoses Diagnosis Chronic kidney disease (CKD), stage III (moderate) (CMS/HCC HHS/HCC)- Primary Chronic kidney disease, Stage III (moderate) Persistent proteinuria Proteinuria documented in this encounter Care Teams Director Systems Relationship Specialty Start Date End Date Joseph Hernandez MD [address] [place] [address] PCP - General FAMILY PRACTICE 11/23/19 documented as of this encounter
--- OUTSIDE RECORDS SUMMARY | 2024-08-05 04:52 | XMS_ITS | Encounter Summary ---
Author Organization [facility] Address [address] [place] [address]. [place] [address] [place] [address] Care Team Providers Care Suction Plate Roller Hand Name Role Phone Blossom Roberto MD Primary Care Provider [phone] Reason for Visit * Reason Comments Follow Up Encounter Details Date Type Department Care Team (Late st Contact Info) Description 10/10/2020 10:45 AM CDT Office Visit [facility] [address] [place] [address] Chelita Helton MD [address] [place] [address] Follow Up Social History Tobacco Use Types Packs/Day Years [...] Sign Reading Time Taken Comments Blood Pressure 142/72 10/10/2020 10:52 AM CDT Pulse 53 10/10/2020 10:52 AM CDT Temperature - - Respiratory Rate - - Oxygen Saturation - - Inhaled Oxygen Concentration - - Weight 85.4 kg (188 lb 4.4 oz) 10/10/2020 10:52 AM CDT Height 157.5 cm (5' 2 ) 10/10/2020 10:52 AM CDT Body Mass Index 34.44 10/10/2020 10:52 AM CDT documented in this encounter Progress Notes * Chelita Helton MD - 10/10/2020 10:45 AM CDT REASON FOR VISIT: Follow Up CHIEF COMPLAINT: Proteinuria History of NSAID use Hypertension History of Present Illness: 75-year-old female presented for follow-up. The patient reports doing well. She has avoided NSAIDs. She remains on hydrochlorothiazide and losartan regimen for blood pressure control. She reports home blood pressure mostly 130 over 80s. Her appetite is good. She denies nausea vomiting. Review Of Systems: Review of Systems Respiratory: Negative for hemoptysis and shortness of breath. Cardiovascular: Negative for orthopnea, leg swelling and PND. Gastrointestinal: Negative for diarrhea, nausea and vomiting. Genitourinary: Negative for dysuria, frequency, hematuria and urgency. Medications: See scanned list Allergies:Not on File No past medical history on file. No past surgical history on file. Social History Tobacco Use ??? Smoking status: Not on file Substance Use Topics ??? Alcohol use: Not on file ??? Drug use: Not on file No family history on file. No family status information on file. Filed Vitals: 10/10/20 1052 BP: 142/72 Pulse: 53 Weight: 85.4 kg (188 lb 4.4 oz) Height: 5' 2 (1.575 m) Body mass index is 34.44 kg/m??. Physical Exam Constitutional: She is oriented to person, place, and time. She appears well-developed. Neck: Neck supple. No JVD present. No tracheal deviation present. No thyromegaly present. Cardiovascular: Normal rate, regular rhythm and normal heart sounds. Pulmonary/Chest: Effort normal and breath sounds normal. Abdominal: Soft. Bowel sounds are normal. Lymphadenopathy: She has no cervical adenopathy. Neurological: She is alert and oriented to person, place, and time. WBC Date Value Ref Range Status 01/11/2020 8.0 4.5 - 10.8 x10'3/uL Final HGB Date Value Ref Range Status 01/11/2020 14.5 12.0 - 16.0 G/DL Final HCT Date Value Ref Range Status 01/11/2020 45.2 36.0 - 47.0 % Final MCV Date Value Ref Range Status 01/11/2020 96.6 78.0 - 100.0 FL Final PLT Date Value Ref Range Status 01/11/2020 217 150 - 350 x10'3/uL Final SODIUM Date Value Ref Range Status 01/11/2020 141 136 - 145 MMOL/L Final POTASSIUM Date Value Ref Range Status 01/11/2020 4.4 3.5 - 5.1 MMOL/L Final CHLORIDE S/P/B Date Value Ref Range Status 01/11/2020 102 98 - 107 MMOL/L Final CO2 Date Value Ref Range Status 01/11/2020 30.7 21.0 - 32.0 MMOL/L Final ANION GAP Date Value Ref Range Status 01/11/2020 8.3 5.0 - 15.0 MMOL/L Final BUN Date Value Ref Range Status 01/11/2020 15 6 - 24 MG/DL Final CREATININE S/P/B Date Value Ref Range Status 01/11/2020 0.64 0.55 - 1.02 MG/DL Final eGFR Non-Afr. Amer. Date Value Ref Range Status 01/11/2020 88 (L) >89 ML/MIN/1.73 M2 Final eGFR Afr. Amer. Date Value Ref Range Status 01/11/2020 >90 >89 ML/MIN/1.73 M2 Final GLUCOSE Date Value Ref Range Status 01/11/2020 88 70 - 99 MG/DL Final Comment: FASTING GLUCOSE 100 TO 125 MG/DL IS CONSISTENT WITH IMPAIRED FASTING GLUCOSE. FASTING GLUCOSE >125 MG/DL IS CONSISTENT WITH DIABETES. RANDOM GLUCOSE >200 MG/DL WITH HYPERGLYCEMIC SYMPTOMS IS CONSISTENT WITH DIABETES. PER ADA GUIDELINES CALCIUM Date Value Ref Range Status 01/11/2020 9.8 8.4 - 10.5 MG/DL Final ALBUMIN S/P/B Date Value Ref Range Status 01/11/2020 3.9 3.4 - 5.0 G/DL Final PHOSPHORUS Date Value Ref Range Status 01/11/2020 4.0 2.6 - 4.7 MG/DL Final No results found for: PTHIS October 07. Hemoglobin 14.3 potassium 4.6 creatinine 0.7 albumin 3.7 Diagnoses/Impression: 1. Proteinuria, unspecified type 2. Hypertension, essential Recommendations and Plan: 1. Low-grade proteinuria with preserved renal function attributed to chronic NSAID use. I have advised patient to avoid NSAIDs. 2. Hypertension. Blood pressure is under control. Continue losartan 50 mg daily, hydrochlorothiazide 25 g daily. RTC. 6 months. CHELITA HELTON MD cc: PCP, BLOSSOM ROBERTO MD documented in this encounter Plan of Treatment Not on file documented as of this encounter Visit Diagnoses Diagnosis Proteinuria, unspecified type- Primary Hypertension, essential Unspecified essential hypertension documented in this encounter Care Teams Suction Plate Roller Hand Relationship Specialty Start Date End Date Blossom Roberto MD [address] [place] [address] PCP - General FAMILY PRACTICE 11/23/19 documented as of this encounter
--- OUTSIDE RECORDS SUMMARY | 2024-08-05 04:52 | XMS_ITS | Encounter Summary ---
Author Organization [facility] Address [address] [place] [address]. [place] [address] [place] [address] Care Team Providers Care Patent Prosecution Paralegal Name Role Phone Joseph Hernandez MD Primary Care Provider [phone] Reason for Visit * Reason Onset Date Comments Medication 11/26/2022 Encounter Details Date Type Department Care Team (Late st Contact Info) Description 11/26/2022 Telephone [facility] [address] [place] [address] Per Collins MD Medication Social History Tobacco Use Types Packs/Day Years [...] Progress Notes * Roxanne Loya LPN - 11/26/2022 9:34 AM CDT Pt called back she is taking pravastatin 10 mg daily. Medication list updated. * Roxanne Loya LPN - 11/26/2022 8:56 AM CDT Call out to pt. Pt medication list has pravastatin on it the dosage is cut off. Call out to confirmdosage. documented in this encounter Plan of Treatment Not on file documented as of this encounter Visit Diagnoses Not on filedocumented in this encounter Care Teams Patent Prosecution Paralegal Relationship Specialty Start Date End Date Joseph Hernandez MD [address] [place] [address] PCP - General FAMILY PRACTICE 11/23/19 documented as of this encounter
--- OUTSIDE RECORDS SUMMARY | 2024-08-05 04:52 | XMS_ITS | Encounter Summary ---
Author Organization [facility] Address [address] [place] [address]. [place], [place] [address] [place] [address] Care Team Providers Care Supervisor Dry Paste Name Role Phone Joseph Hernandez MD Primary Care Provider [phone] Encounter Details Date Type Department Care Team (Latest Contact Info) Description 04/25/2020 Travel Social History Tobacco Use Types Packs/Day [...] on filedocumented in this encounter Care Teams Supervisor Dry Paste Relationship Specialty Start Date End Date Joseph Hernandez MD [address] [place] [address] PCP - General FAMILY PRACTICE 11/23/19 documented as of this encounter
--- OUTSIDE RECORDS SUMMARY | 2024-08-05 04:52 | XMS_ITS | Encounter Summary ---
Author Organization [facility] Address [address] [place] [address]. [place] [address] [place] [address] Care Team Providers Care Pouch Making Machine Operator Name Role Phone Joseph Hernandez MD Primary Care Provider [phone] Reason for Visit * Reason Comments Lab (SCAN) Encounter Details Date Type Department Care Team ([facility] st Contact Info) Description 04/10/2021 Scan [facility] [address] [place] [address] [phone] Scanned, Documents Lab (SCAN) Social History Tobacco [...] Diagnosis Comments OUTSIDE LAB (SCAN ORDER) Routine 04/10/2021 documented in this encounter Results * OUTSIDE LAB (SCAN) (04/10/2021) 04/10/2021 us Documents Scanned SCANNING Final Result [facility] documented in this encounter Visit Diagnoses Not on filedocumented in this encounter Care Teams Pouch Making Machine Operator Relationship Specialty Start Date End Date Joseph Hernandez MD [address] [place] [address] PCP - General FAMILY PRACTICE 11/23/19 documented as of this encounter
--- OUTSIDE RECORDS SUMMARY | 2024-08-05 04:52 | XMS_ITS | Encounter Summary ---
Author Organization [facility] Address [address] [place] [address]. [place] [address] [place] [address] Care Team Providers Care Count Team Clerk Name Role Phone Joseph Hernandez MD Primary Care Provider [phone] Reason for Visit * Reason Comments Lab (SCAN) Encounter Details Date Type Department Care Team ([facility] st Contact Info) Description 10/07/2020 Scan [facility] [address] [place] [address] [phone] Scanned, Documents Lab (SCAN) Social History Tobacco [...] Diagnosis Comments OUTSIDE LAB (SCAN ORDER) Routine 10/07/2020 documented in this encounter Results * OUTSIDE LAB (SCAN) (10/07/2020) 10/07/2020 us Documents Scanned SCANNING Final Result [facility] documented in this encounter Visit Diagnoses Not on filedocumented in this encounter Care Teams Count Team Clerk Relationship Specialty Start Date End Date Joseph Hernandez MD [address] [place] [address] PCP - General FAMILY PRACTICE 11/23/19 documented as of this encounter
--- OUTSIDE RECORDS SUMMARY | 2024-08-05 04:52 | XMS_ITS | Encounter Summary ---
Author Organization [facility] Address [address] [place] [address]. [place] [address] [place] [address] Care Team Providers Care Director Of Financial Planning Name Role Phone Blossom Roberto MD Primary Care Provider [phone] Reason for Visit * Reason Comments Follow Up Encounter Details Date Type Department Care Team (Late st Contact Info) Description 04/25/2020 9:30 AM CDT Office Visit [facility] [address] [place] [address] Chelita Helton MD [address] [place] [address] Follow Up Social History Tobacco [...] Sign Reading Time Taken Comments Blood Pressure 146/78 04/25/2020 9:42 AM CDT Pulse 75 04/25/2020 9:42 AM CDT Temperature - - Respiratory Rate - - Oxygen Saturation - - Inhaled Oxygen Concentration - - Weight 85.2 kg (187 lb 13.3 oz) 04/25/2020 9:42 AM CDT Height 160 cm (5' 3 ) 04/25/2020 9:42 AM CDT Body Mass Index 33.27 04/25/2020 9:42 AM CDT documented in this encounter Progress Notes * Chelita Helton MD - 04/25/2020 9:30 AM CDT REASON FOR VISIT: Follow Up CHIEF COMPLAINT: Proteinuria History of NSAID use Hypertension History of Present Illness: 74-year-old female presented for follow-up after initial consultation for proteinuria. The patient denies history of diabetes although her hemoglobin A1c was 6.4%. The patient reports history of chronic Aleve use for 20 years. She has stopped Aleve or other NSAIDs since her last visit. She denies shortness of breath or pedal edema. Review Of Systems: Review of Systems Respiratory: Negative for hemoptysis and shortness of breath. Cardiovascular: Negative for orthopnea, leg swelling and PND. Gastrointestinal: Negative for diarrhea, nausea and vomiting. Genitourinary: Negative for dysuria, frequency, hematuria and urgency. Medications: See scanned list Allergies:Allergies not on file No past medical history on file. No past surgical history on file. Social History Tobacco Use ??? Smoking status: Not on file Substance Use Topics ??? Alcohol use: Not on file ??? Drug use: Not on file No family history on file. No family status information on file. Filed Vitals: 04/25/20 0942 BP: 146/78 Pulse: 75 Weight: 85.2 kg (187 lb 13.3 oz) Height: 5' 3 (1.6 m) Body mass index is 33.27 kg/m??. Physical Exam Constitutional: She is oriented to person, place, and time. She appears well- developed and well-nourished. Neck: Neck supple. No JVD present. No tracheal deviation present. No thyromegaly present. Cardiovascular: Normal rate, regular rhythm and normal heart sounds. Pulmonary/Chest: Effort normal and breath sounds normal. Abdominal: Soft. Bowel sounds are normal. Musculoskeletal: She exhibits no edema. Lymphadenopathy: She has no cervical adenopathy. Neurological: She is alert and oriented to person, place, and time. Psychiatric: She has a normal mood and affect. WBC Date Value Ref Range Status 01/11/2020 [...] MG/DL Final No results found for: PTHIS April 20. Creatinine 0.6 albumin 3.8 hemoglobin A1c 6.1 hemoglobin 14.8 urinalysis 2+ protein, urine protein creatinine ratio 0.206 (ratio was 0.6 in December) Diagnoses/Impression: 1. Proteinuria, unspecified type 2. Hypertension, essential Recommendations and Plan: Low-grade proteinuria with preserved renal function most likely secondary to chronic NSAID use, proteinuria seems improving after stopping NSAIDs. Hemoglobin A1c noted to be elevated, I have advised patient to follow with primary care physician for possible diabetes. Diabetic nephropathy may contribute to proteinuria also. I have advised patient to avoid all NSAIDs. Continue losartan 50 mg daily,hydrochlorothiazide 25 mg daily. Will follow her in 6 months, check renal function panel, urine protein ratio prior to next visit. CHELITA HELTON MD cc: PCP, BLOSSOM ROBERTO MD documented in this encounter Plan of Treatment Not on file documented as of this encounter Visit Diagnoses Diagnosis Proteinuria, unspecified type- Primary Hypertension, essential Unspecified essential hypertension documented in this encounter Care Teams Director Of Financial Planning Relationship Specialty Start Date End Date Blossom Roberto MD [address] [place] [address] PCP - General FAMILY PRACTICE 11/23/19 documented as of this encounter
--- OUTSIDE RECORDS SUMMARY | 2024-08-05 04:52 | XMS_ITS | Encounter Summary ---
Author Organization [facility] Address [address] [place] [address]. [place] [address] [place] [address] Care Team Providers Care Loading Shovel Oiler Name Role Phone Blossom Roberto MD Primary Care Provider [phone] Reason for Visit * Reason Comments Follow Up Encounter Details Date Type Department Care Team (Late st Contact Info) Description 02/12/2022 9:45 AM CDT Office Visit [facility] [address] [place] [address] Per Collins MD Follow Up Social History Tobacco Use Types [...] Sign Reading Time Taken Comments Blood Pressure 137/84 02/12/2022 9:58 AM CDT Pulse 82 02/12/2022 9:58 AM CDT Temperature - - Respiratory Rate - - Oxygen Saturation - - Inhaled Oxygen Concentration - - Weight 83 kg (182 lb 15.7 oz) 02/12/2022 9:58 AM CDT Height 160 cm (5' 3 ) 02/12/2022 9:58 AM CDT Body Mass Index 32.41 02/12/2022 9:58 AM CDT documented in this encounter Progress Notes * Per Collins MD - 02/12/2022 9:45 AM CDT [facility] Follow Up Progress Note ? Chief complaint: Follow-up visit ? 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 HPI: Last seen in Mar [address] Anguiano. Ellen Ibarra is a 76-year-old female who [...] of being compliant with all her Medications. ?? About kidney disease, Serum creatinine/ eGFR is [...] hypertension control, Home blood pressure/pulse readings apparently 122/81 In the office his blood pressure runs 122/80 Currently on Not on any medications Not on any diuretics ? No edema noted About Urinary Symptoms, Denies [...] No hx of muscle aches or cramps ? Allergies: NKDA per patient ?? No current outpatient medications on file. As on chart ? PHYSICAL EXAMINATION: CONSTITUTIONAL: Fair built HEENT: Normocephalic, atraumatic. No jugular venous distention, thyromegaly or lymphadenopathy. EYES: no icterus, no discharge CARDIOVASCULAR SYSTEM: S1 S2 heard No rubs. RESPIRATORY SYSTEM: Bilateral AE Fair, no rales no wheezing ABDOMEN: Soft, No tenderness, bs positive. NERVOUS SYSTEM: Awake, alert. No gross focal neurological signs. EXTREMITIES:chronic venous stasis pedal edema. Moving all limbs. ? Diagnostic Studies Reviewed Today: Recent Labs reviewed: As of January 2022: WBC 7.0; hemoglobin 14.2; platelets 227; Sodium 138; potassium 3.8; calcium 9.1; bicarbonate 26; BUN 14; creatinine 0.69; phosphorus 3.3; glucose 147; albumin 3.3; hemoglobin A1c 6.2; Urine protein 21/urine creatinine 41= UPC ratio 0.51 Component 02/12/2022 COLOR (U) YELLOW TRANSPARENCY CLEAR Specific [place] (U) 1.020 U PH 6.5 LEUKOCYTE ESTERASE [...] (H) As of mar 2021: Creatinine 0.5 ?? UPC is 0.4 g/gram [prior UPC has been between 0.2 g/grams-0.6 g/gram] as of December 2019: ?? Component 01/11/2020 SODIUM 141 POTASSIUM 4.4 CHLORIDE S/P/B 102 CO2 30.7 GLUCOSE 88 BUN 15 CREATININE S/P/B 0.64 CALCIUM 9.8 ALBUMIN S/P/B 3.9 PHOSPHORUS 4.0 ANION GAP 8.3 OSMOLALITY (CALC) 292 eGFR Non-Afr. Amer. 88 (L) eGFR Afr. Amer. >90 GFR NOTES GFR REFERENCES: EPI/HPF MANY PROTEIN, URINE RANDOM 23.0 (H) CREATININE (U) 39.9 PROTEIN/CREATININE RATIO MG/MG 0.6 ?? Assessment and Plan: ? Chronic Kidney Disease Stage I with subnephrotic range proteinuria ?? 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 Differential includes membranous precipitated by NSAID usage versus early diabetic nephropathy ?? She is not too keen to proceed with renal biopsy ?? Fortunately proteinuria has been subnephrotic usually running below 0.6 g/grams and her GFR has been fairly stable over the past year ?? Continue supportive therapy ?? If amount of proteinuria increases, we can uptitrate losartan ? 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 Patient also has currently diabetes melitis managed on diet management only Patient on losartan dose to be verified I do not believe this is secondary to diabetic nephropathy Nor do I think it is indolent glomerulonephritis at this time # Electrolytes Adequate ; Monitor electrolytes and [...] No edema Currently on following regimen: On losartan, dose not known Not on any diuretics Avoid hypotension/Avoid volume depletion Home blood pressure/pulse readings to be provided to us so we could adjust medications # Diabetes mellitus On diet management only not on any medications Mx Per PCP #Osteoarthritis Prefer nonnephrotoxic agents for pain management Management per primary team Discussed with patient at length Questions answered Verbalizes understanding Today Work-up as ordered including urinalysis RTC in 12 Months With prior labs CBC, iron profile Renal function panel, magnesium, uric acid SPEP UPEP 25 hydroxyvitamin D and intact PTH Urinalysis Urine protein, creatinine and ratio Thank you for allowing us to participate in the care of this patient. ? CC: BLOSSOM ROBERTO MD documented in this encounter Plan of Treatment Not on file documented as of this encounter Visit Diagnoses Diagnosis Non-nephrotic range proteinuria- Primary Proteinuria Essential hypertension Unspecified essential hypertension Chronic kidney disease, stage I Chronic kidney disease, Stage I Osteoarthritis, unspecified osteoarthritis type, unspecified site Diabetes mellitus without complication ([facility]) Type II or unspecified type diabetes mellitus without mention of complication, not stated as uncontrolled 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
--- OUTSIDE RECORDS SUMMARY | 2024-08-05 04:52 | XMS_ITS | Encounter Summary ---
Author Organization [facility] Address [address] [place] [address]. [place] [address] [place] [address] Care Team Providers Care Wireless Development Manager Name Role Phone Joseph Hernandez MD Primary Care Provider [phone] Reason for Visit * Reason Comments Lab (SCAN) Encounter Details Date Type Department Care Team (Late st Contact Info) Description 11/13/2022 Scan [facility] [address] [place] [address] Scanned, Doc Cikda Lab (SCAN) Social [...] Diagnosis Comments OUTSIDE LAB (SCAN ORDER) Routine 11/12/2022 documented in this encounter Results * OUTSIDE LAB (SCAN) (11/12/2022) 11/12/2022 us Doc Cikda Scanned SCANNING Edited Result - Final [facility] documented in this encounter Visit Diagnoses Not on filedocumented in this encounter Care Teams Wireless Development Manager Relationship Specialty Start Date End Date Joseph Hernandez MD [address] [place] [address] PCP - General FAMILY PRACTICE 11/23/19 documented as of this encounter
--- OUTSIDE RECORDS SUMMARY | 2024-08-05 04:52 | XMS_ITS | Encounter Summary ---
Author Organization [facility] Address [address] [place] [address]. [place] [address] [place] [address] Care Team Providers Care Chief Information Security Officer Name Role Phone Joseph Roberto MD Primary Care Provider Reason for Visit * Reason Comments Follow Up Encounter Details Date Type Department Care Team (Late st Contact Info) Description 04/17/2021 9:00 AM CDT Office Visit [facility] [address] [place] [address] J Carlos Anguiano MD [address] [place] [address] Follow Up Social History Tobacco [...] Sign Reading Time Taken Comments Blood Pressure 145/75 04/17/2021 9:18 AM CDT Pulse 84 04/17/2021 9:18 AM CDT Temperature - - Respiratory Rate - - Oxygen Saturation - - Inhaled Oxygen Concentration - - Weight 85.6 kg (188 lb 11.4 oz) 04/17/2021 9:18 AM CDT Height 157.5 cm (5' 2 ) 04/17/2021 9:18 AM CDT Body Mass Index 34.52 04/17/2021 9:18 AM CDT documented in this encounter Progress Notes * J Carlos Anguiano MD - 04/17/2021 9:00 AM CDT [facility] Note Chief complaint: Follow-up visit Problem list: 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 Since the last visit, she has done well with no recent hospitalizations or acute illness. She does not check her blood sugars at home. She does not check her blood pressures at home. She isscheduled to see . her primary MD tomorro- Dr Roberto. Continues to smoke, does not appear to be interested in stopping smoking. No fevers or chills Patient has no specific complaints today. Reports of being compliant with all her Medications. ROS: Reported Respiratory: Negative for hemoptysis and shortness of breath. Cardiovascular: Negative for orthopnea, leg swelling and PND. Gastrointestinal: Negative for diarrhea, nausea and vomiting. Genitourinary: Negative for dysuria, frequency, hematuria and urgency. Allergies: Not on File Current Medications: No current outpatient medications on file. No current facility-administered medications for this visit. Physical Exam: Physical Exam Constitutional: She appears well-developed. HENT: Head: Normocephalic. Eyes: Conjunctivae are normal. Pupils are equal, round, and reactive to light. Cardiovascular: Normal rate and regular rhythm. No murmur heard. Pulmonary/Chest: Effort normal. She has rhonchi. Abdominal: Soft. She exhibits no distension. There is no tenderness. Musculoskeletal: Right lower leg: She exhibits no edema. Left lower leg: She exhibits no edema. Changes consistent with stasis dermatitis/chronic venous stasis affecting lower extremity Neurological: She is alert. Skin: No rash noted. Psychiatric: Her behavior is normal. Nursing note and vitals reviewed. Diagnostic Studies Reviewed Today: Recent Labs reviewed: Creatinine 0.5 UPC is 0.4 g/gram [prior UPC has been between 0.2 g/grams-0.6 g/gram] Assessment and Plan: ??? 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 Differential includes membranous precipitated by NSAID usage versus early diabetic nephropathy ??? She is not too keen to proceed with renal biopsy ??? Fortunately proteinuria has been subnephrotic usually running below 0.6 g/grams and her GFR hasbeen fairly stable over the past year ??? Continue supportive therapy ??? If amount of proteinuria increases, we can uptitrate losartan ??? Hypertension: BP is relatively at treatment goal . Patient was advised to check her blood pressures at least twice weekly,keep a log and bring to the next visit. ??? Anemia: Hgb at goal. No need for erythropoieitin stimulating agents. ? ? Metabolic acidosis: bicarb is at goal. (Goal serum bicarb in CKD >= 22 mEq/L) ??? Smoking cessation; counseling done. Patient is not ready to quit smoking ??? General: dietary salt restrictions as required, weight loss as required, increase physical activity if possible. Follow up: 9 months [facility] CC: JOSEPH ROEBRTO MD documented in this encounter Plan of Treatment Not on file documented as of this encounter Visit Diagnoses Diagnosis Non-nephrotic range proteinuria- Primary Proteinuria documented in this encounter Care Teams Chief Information Security Officer Relationship Specialty Start Date End Date Joseph Roberto MD [address] [place] [address] PCP - General FAMILY PRACTICE 11/23/19 documented as of this encounter
--- OUTSIDE RECORDS SUMMARY | 2024-08-05 04:53 | XMS_ITS | Encounter Summary ---
Author Organization [facility] Address [facility] [place] [address] [place] [address] Care Team Providers Care Gas Burner Operator Name Role Phone Unavailable Primary Care Provider Unavailabl e Encounter Details Date Type Department Care Team (Late st Contact Info) Description 03/15/2015 Abstract [facility] [address] [place] [address] Ferdinand Cooper MD Social History Tobacco Use Types Packs/Day [...]
--- OUTSIDE RECORDS SUMMARY | 2024-08-05 04:53 | XMS_ITS | Encounter Summary ---
Author Organization [facility] Address [address] [place] [address]. [place] [address] [place] [address] Care Team Providers Care Asbestos Cloth Inspector Name Role Phone Unavailable Primary Care Provider Unavailabl e Encounter Details Date Type Department Care Team (Latest Contact Info) Description 08/05/2001 Abstract [facility] Social History Tobacco Use Types Packs/Day Years [...]
--- OUTSIDE RECORDS SUMMARY | 2024-08-05 04:53 | XMS_ITS | Encounter Summary ---
Author Organization [facility] Address [address] [place] [address]. [place] [address] [place] [address] Care Team Providers Care Compliance Project Manager Name Role Phone Joseph Hernandez MD Primary Care Provider [phone] Encounter Details Date Type Department Care Team ([facility] st Contact Info) Description 12/16/2019 Scan [facility] [address] [place] [id number] Scanned, Documents Social History Tobacco Use Types [...] on filedocumented in this encounter Care Teams Compliance Project Manager Relationship Specialty Start Date End Date Joseph Hernandez MD [address] [place] [address] PCP - General FAMILY PRACTICE 11/23/19 documented as of this encounter
--- OUTSIDE RECORDS SUMMARY | 2024-08-05 04:53 | XMS_ITS | Encounter Summary ---
Author Organization [facility] Address [address] [place] [address]. [place] [address] [place] [address] Care Team Providers Care Ensemble Member Name Role Phone Unavailable Primary Care Provider Unavailabl e Encounter Details Date Type Department Care Team (Late st Contact Info) Description 03/01/2015 Abstract [facility] [address] [place] [address], [address] [place] [address] Ferdinand Cooper MD Social History Tobacco Use [...]
--- OUTSIDE RECORDS SUMMARY | 2024-08-05 04:53 | XMS_ITS | Encounter Summary ---
Author Organization [facility] Address [address] [place] [address]. [place] [address] [place] [address] Care Team Providers Care Supervisor Sawing And Assembly Name Role Phone Unavailable Primary Care Provider Unavailabl e Encounter Details Date Type Department Care Team (Late st Contact Info) Description 02/16/2015 Abstract [facility], [address]nd [place] [address] Ferdinand Cooper MD Social History Tobacco Use Types Packs/Day Years Used Date Smoking Tobacco: Never Assessed Comments Unknown Sex and Gender Information Value Date Recorded Sex Assigned at Not on file Legal Sex Female 8:27 PM CDT Gender Identity Not on file Sexual Orientation Not on file documented as of this encounter Last Filed Vital Signs Vital Sign Reading Time Taken Comments Blood Pressure 136/82 02/16/2015 8:56 AM CDT Pulse - - Temperature - - Respiratory Rate - - Oxygen Saturation - - Inhaled Oxygen Concentration - - Weight 85.3 kg (188 lb) 02/16/2015 8:56 AM CDT Height 161.3 cm (5' 3.5 ) 02/16/2015 8:56 AM CDT Body Mass Index 32.78 02/16/2015 8:56 AM CDT documented in this encounter Progress Notes * Ferdinand Cooper MD - 02/16/2015 9:15 AM CDT Reason For Visit New Patient Visit Referred By / Reason Patient was referred by Primary Care Physician LDV by PCP: Name: Dr. Hernandes Reason: need for screening colonoscopy Chief Complaint I'm here to schedule my colonoscopy History of Present Illness HPI Free Text: this is 69 years old female patient who was referred by her primary care physician for screening colonoscopy. Patient denies any active abdominal pain, bloating, nausea, vomiting, diarrhea, constipation. Intermittently patient bleed from her hemorrhoids. She did have in 2001 and 2006 colonoscopies.Report from 2001 normal colonoscopy. No report available for 2007 colonoscopy. As per patient it was normal. Review of Systems See HPI for pertinent positives. Active Problems 1. Encounter for screening colonoscopy (V76.51) (Z12.11) Past Medical History 1. History of chronic obstructive lung disease (V12.69) (Z87.09) 2. History of hyperlipidemia (V12.29) (Z86.39) 3. History of hypertension (V12.59) (Z86.79) Surgical History 1. History of Appendectomy 2. History of Cholecystectomy ?? January 1998 3. History of Hysterectomy ?? December 1990 Family History Father 1. Family history of leukemia (V16.6) (Z80.6) Social History ?? Current every day smoker (305.1) (F17.200) Current Meds 1. Hydrochlorothiazide 25 MG Oral Tablet; Therapy: (Recorded:[id number]) to Recorded 2. Losartan Potassium 50 MG Oral Tablet; Therapy: (Recorded:[id number]) to Recorded 3. Pravachol 10 MG TABS; Therapy: (Recorded:[id number]) to Recorded 4. Triamcinolone Acetonide 0.1 % External Cream; Therapy: (Recorded:[id number]) to Recorded Allergies 1. No Known Drug Allergies Vitals Recorded: [id number] 08:56AM Systolic 136 Diastolic 82 Height 5 ft 3.5 in Weight 188 lb BMI Calculated 32.78 BSA Calculated 1.89 Physical Exam Constitutional - General appearance: No acute distress, well appearing and well nourished. Ears, Nose, Mouth, and Throat - Oropharynx: Normal with no erythema, edema, exudate or lesions. Neck - Exam: Supple, symmetric, trachea midline, no masses. Pulmonary - Respiratory effort: No increased work of breathing or signs of respiratory distress. Auscultation of lungs: Clear to auscultation. Cardiovascular - Auscultation of heart: Normal rate and rhythm, normal S1 and S2, no murmurs. Abdomen - Abdomen: Non-tender, no masses. Liver and spleen: No hepatomegaly or splenomegaly. Psychiatric - Orientation to person, place, and time: Normal. Mood and affect: Normal. Assessment 1. History of hyperlipidemia (V12.29) (Z86.39) 2. History of hypertension (V12.59) (Z86.79) 3. History of chronic obstructive lung disease (V12.69) (Z87.09) 4. History of Appendectomy 5. History of Hysterectomy 6. History of Cholecystectomy 7. Family history of leukemia (V16.6) (Z80.6) : Father 8. Current every day smoker (305.1) (F17.200) 9. Encounter for screening colonoscopy (V76.51) (Z12.11) encounter for screening colonoscopy. Plan Encounter for screening colonoscopy 1. Suprep Bowel Prep Oral Solution; DILUTE CONTENTS AND USE DIRECTED FOR BOWEL PREP Rx By: Ferdinand Cooper; Dispense: 0 Days ; #:1 ML; Refill: 0; For: Encounter for screening colonoscopy; RACHEL = N; Print Rx; Last Updated By: Ulysses Zelaya; 02/16/2015 8:58:25 AM The planned procedure/s, the expected benefits,the associated risks,possible complications, and alternatives to the procedure/s have been discussed in detail with the patient or family. They state that they understand, have no further questions and agree to proceed with the procedure/s as outlined. Procedures/Surgery: 03/01/15 colonoscopy. Bowel prep as directed. Signatures Electronically signed by : Ferdinand Cooper M.D.; Feb 16 2015 9:35AM TAPE WEAVER (Author) documented in this encounter Plan of Treatment Not on file documented as of this encounter Visit Diagnoses Not on filedocumented in this encounter
--- OUTSIDE RECORDS SUMMARY | 2024-08-05 04:53 | XMS_ITS | Encounter Summary ---
Author Organization [facility] Address [address] [place] [address]. [place] [address] [place] [address] Care Team Providers Care Crimper Assembler Name Role Phone Unavailable Primary Care Provider Unavailabl e Encounter Details Date Type Department Care Team (Latest Contact Info) Description 01/27/2015 Abstract [facility] Social History Tobacco Use [...]
--- OUTSIDE RECORDS SUMMARY | 2024-08-05 04:53 | XMS_ITS | Encounter Summary ---
Author Organization [facility] Address [address] [place] [address]. [place] [address] [place] [address] Care Team Providers Care Applications Specialist Name Role Phone Unavailable Primary Care Provider Unavailabl e Encounter Details Date Type Department Care Team (Late st Contact Info) Description 03/23/2015 Abstract [facility], [address] [place] [address] Ferdinand Cooper MD Social History Tobacco Use Types Packs/Day Years Used Date Smoking Tobacco: Never Assessed Comments Unknown Sex and Gender Information Value Date Recorded Sex Assigned at Not on file Legal Sex Female 8:27 PM CDT Gender Identity Not on file Sexual Orientation Not on file documented as of this encounter Progress Notes * Ferdinand Cooper MD - 03/23/2015 9:00 AM CDT Reason For Visit Post-Op Visit Chief Complaint I'm here to review my path report after colonoscopy Post-Op this is 69 years old female patient status post uneventful colonoscopy with rectal polypectomy. Shedenies any symptoms suggestive complicated course. She is here today to review her path report. Active Problems 1. Encounter for screening colonoscopy (V76.51) (Z12.11) Social History ?? Current every day smoker (305.1) (F17.200) Current Meds 1. Hydrochlorothiazide 25 MG Oral Tablet; Therapy: (Recorded:[id number]) to Recorded 2. Losartan Potassium 50 MG Oral Tablet; Therapy: (Recorded:[id number]) to Recorded 3. Pravachol 10 MG TABS; Therapy: (Recorded:[id number]) to Recorded 4. Suprep Bowel Prep Oral Solution; DILUTE CONTENTS AND USE DIRECTED FOR BOWEL PREP; Therapy: [id number] to (Last Rx:[id number]) Ordered 5. Triamcinolone Acetonide 0.1 % External Cream; Therapy: (Recorded:[id number]) to Recorded Allergies 1. No Known Drug Allergies Assessment rectal hyperplastic polyp. Plan colonoscopy in 10 years unless symptomatic.. Discussion/Summary nature of a hyperplastic polyp, need for colonoscopy in 10 years, I dressed this patient in details. Patient verbalized understanding nature of discussion and would follow plan. Signatures Electronically signed by : Ferdinand Cooper M.D.; Mar 23 2015 1:59PM MAT REPAIRER (Author) documented in this encounter Plan of Treatment Not on file documented as of this encounter Visit Diagnoses Not on filedocumented in this encounter
--- OUTSIDE RECORDS SUMMARY | 2024-08-05 04:53 | XMS_ITS | Encounter Summary ---
Author Organization [facility] Address [address] [place] [address]. [place] [address] [place] [address] Care Team Providers Care V Belt Builder Name Role Phone Unavailable Primary Care Provider Unavailabl e Encounter Details Date Type Department Care Team (Latest Contact Info) Description 02/17/2015 Abstract [facility] Social History Tobacco Use Types [...]
--- OUTSIDE RECORDS SUMMARY | 2024-08-05 04:53 | XMS_ITS | Encounter Summary ---
Author Organization [facility] Address [address] [place] [address]. [place] [address] [place] [address] Care Team Providers Care Patient Attendant Name Role Phone Blossom Roberto MD Primary Care Provider [phone] Reason for Visit * Reason Comments Follow Up Encounter Details Date Type Department Care Team (Late st Contact Info) Description 01/11/2020 10:00 AM CDT Office Visit [facility] [address] [place] [address] Adonis Khoury MD Follow Up Social History Tobacco Use [...] Sign Reading Time Taken Comments Blood Pressure 142/70 01/11/2020 11:09 AM CDT Pulse 90 01/11/2020 11:09 AM CDT Temperature - - Respiratory Rate - - Oxygen Saturation - - Inhaled Oxygen Concentration - - Weight 87.3 kg (192 lb 7.4 oz) 01/11/2020 11:09 AM CDT Height 160 cm (5' 3 ) 01/11/2020 11:09 AM CDT Body Mass Index 34.09 01/11/2020 11:09 AM CDT documented in this encounter Progress Notes * Adonis Khoury MD - 01/11/2020 10:00 AM CDT REASON FOR VISIT: New patient CHIEF COMPLAINT: Reason for Consultation: Proteinuria HISTORY OF PRESENT ILLNESS: 74 yr female with h/o Hypertension ( 20 + yrs ), Dyslipidemia, Hypothyroidism and Hepatic steatosiswith previous U/A showed proteinuria being seen in Nephrology clinic as a new patient for further evaluation and management. Patient denies any h/o diabetes. No previous BMP is available at this to review. Patient was apparently taking NSAID, i.e Advil on regular basis and recently was taken off. Patient denies h/o nephrolithiasis, gross hematuria, hemoptysis or PRBCs transfusion. She has nocturia but denies hesitancy, urgency, urinary incontinence or recurrent UTIs. REVIEW OF SYSTEMS: Review of systems was unremarkable. Social History Tobacco Use ??? Smoking status: Not on file Substance Use Topics ??? Alcohol use: Not on file ??? Drug use: Not on file VITAL SIGNS: Filed Vitals: 01/11/20 1109 BP: 142/70 Pulse: 90 Weight: 87.3 kg (192 lb 7.4 oz) Height: 5' 3 (1.6 m) Body mass index is 34.09 kg/m??. PHYSICAL EXAMINATION: CARDIOVASCULAR SYSTEM: Heart sounds regular. No gallops, murmurs or rubs. No edema. RESPIRATORY SYSTEM: Normal respiratory effort. Chest clear to auscultation bilaterally. ABDOMEN: Soft. Liver, spleen, kidneys and bladder is not palpable. No costovertebral angle or suprapubic tenderness. LAB RESULTS: Labs reviewed. VISIT DIAGNOSES: Proteinuria ASSESSMENT AND PLAN: CKD Stage 1 ( R kidney 11.4 cm, L kidney 12.8 cm ) with proteinuria ( 653 mg/day ) no recent creatinine available to review, already on Losartan 50 mg PO daily. Previous U/A from 10/2019 showed SG 1.025, 1+ protein, 1+ blood, RBC 11-20/hpf, bacteria 2 + indicating UTI ( patient mentioned that she was not treated with antibiotic course at that time ). Hypertension ( 20 + yrs ) with BP at 142/70, currently on Losartan 50 mg PO daily and HCTZ 25 mg POdaily. Previous labwork showed JOSE MANUEL, ANCA and anti-GBM unremarkable. Patient advised to consume around 60-80 ounces of oral fluid per day. Continue current medications at this time. Order CBC, renal function panel, LFT, U/A and urine protien/creatinine ratio. Depending on repeat labwork, will see if requires further medications adjustment. Repeat BMP, U/A and urine protein/creatinine ratio in 3 months prior to next appointment. Thank you for allowing me to participate in the care of this patient. ADONIS KHOURY MD CC: BLOSSOM ROBERTO MD No ref. provider found documented in this encounter Plan of Treatment Not on file documented as of this encounter Visit Diagnoses Diagnosis Proteinuria, unspecified type- Primary documented in this encounter Care Teams Patient Attendant Relationship Specialty Start Date End Date Blossom Roberto MD [address] [place] [address] PCP - General FAMILY PRACTICE 11/23/19 documented as of this encounter
--- OUTSIDE RECORDS SUMMARY | 2024-08-05 04:53 | XMS_ITS | Encounter Summary ---
Author Organization [facility] Address [address] [place] [address]. [place] [address] [place] [address] Care Team Providers Care Grease Packer Name Role Phone Joseph Hernandez MD Primary Care Provider [phone] Encounter Details Date Type Department Care Team (Late st Contact Info) Description 01/11/2020 Orders Only [facility] [address] [address] Adonis Khoury MD Social History Tobacco Use [...] Results * (ABNORMAL) PROTEIN CREAT RATIO URINE (01/11/2020 11:30 AM CDT) PROTEIN RANDOM (U) 23.0(H) <11.9 MG/DL 01/11/2020 2:21 PM CDT [facility] CREATININE (U) 39.9 MG/DL 01/11/2020 2:21 PM CDT [facility] Comment:REFERENCE RANGE NOT ESTABLISHED PROTEIN/CREATINI NE RATIO MG/MG 0.6 01/11/2020 2:21 PM CDT [facility] Comment:CALCULATED VALUE. ABHIJEET REFERENCE RANGE HAS NOT BEEN ESTABLISHED. URINE SPECIMEN / Unknown 01/11/2020 11:30 AM CDT Adonis Khoury MD URINE ORDERABLES Final Result [facility] [address] [employer] [address], * (ABNORMAL) URINALYSIS (01/11/2020 11:30 AM CDT) COLOR (U) YELLOW 01/11/2020 11:55 AM CDT [facility] TRANSPARENCY CLEAR 01/11/2020 11:55 AM CDT [facility] SPECIFIC GRAVITY (U) 1.025 1.000 - 1.025 01/11/2020 11:55 AM CDT [facility] U PH 6.0 5.0 - 8.0 01/11/2020 11:55 AM CDT [facility] LEUKOCYTES (U) NEGATIVE NEGATIVE 01/11/2020 11:55 AM CDT [facility] NITRITES NEGATIVE NEGATIVE 01/11/2020 11:55 AM CDT [facility] PROTEIN (U) TRACE(A) NEGATIVE 01/11/2020 11:55 AM CDT [facility] URINE GLUCOSE NEGATIVE NEGATIVE 01/11/2020 11:55 AM CDT [facility] KETONES MG/DL (U) NEGATIVE NEGATIVE 01/11/2020 11:55 AM CDT [facility] UROBILINOGEN 0.2 <1.0 EU/DL 01/11/2020 11:55 AM CDT [facility] BILIRUBIN (U) NEGATIVE NEGATIVE 01/11/2020 11:55 AM CDT [facility] BLOOD (U) NEGATIVE NEGATIVE 01/11/2020 11:55 AM CDT [facility] WBC/HPF 0-5 0 - 5 /HPF 01/11/2020 12:20 PM CDT [facility] EPI/HPF MANY /LPF 01/11/2020 11:55 AM CDT [facility] BACTERIA (U) TRACE /HPF 01/11/2020 11:55 AM CDT [facility] URINE SPECIMEN OBTAINED BY CLEAN CATCH PROCEDURE / Unknown 01/11/2020 11:30 AM CDT Adonis Khoury MD URINE ORDERABLES Final Result [facility] [address] [place] [address], * (ABNORMAL) RENAL FUNCTION PANEL (01/11/2020 11:30 AM CDT) SODIUM S/P/B 141 136 - 145 MMOL/L 01/11/2020 11:59 AM CDT [facility] POTASSIUM S/P/B 4.4 3.5 - 5.1 MMOL/L 01/11/2020 11:59 AM CDT [facility] CHLORIDE S/P/B 102 98 - 107 MMOL/L 01/11/2020 11:59 AM CDT [facility] CO2 30.7 21.0 - 32.0 MMOL/L 01/11/2020 11:59 AM CDT [facility] GLUCOSE 88 70 - 99 MG/DL 01/11/2020 11:59 AM CDT [facility] Comment: FASTING GLUCOSE 100 TO 125 MG/DL IS CONSISTENT WITH IMPAIRED FASTING GLUCOSE. FASTING GLUCOSE >125 MG/DL IS CONSISTENT WITH DIABETES. RANDOM GLUCOSE >200 MG/DL WITH HYPERGLYCEMIC SYMPTOMS IS CONSISTENT WITH DIABETES. PER ADA GUIDELINES BUN 15 6 - 24 MG/DL 01/11/2020 11:59 AM CDT [facility] CREATININE S/P/B 0.64 0.55 - 1.02 MG/DL 01/11/2020 11:59 AM CDT [facility] CALCIUM S/P/B 9.8 8.4 - 10.5 MG/DL 01/11/2020 11:59 AM CDT [facility] ALBUMIN S/P/B 3.9 3.4 - 5.0 G/DL 01/11/2020 11:59 AM CDT [facility] PHOSPHORUS 4.0 2.6 - 4.7 MG/DL 01/11/2020 2:17 PM CDT [facility] ANION GAP 8.3 5.0 - 15.0 MMOL/L 01/11/2020 11:59 AM CDT [facility] OSMOLALITY (CALC) 292 MOSM/KG 020 11:59 AM CDT [facility] Comment:REFERENCE RANGE NOT ESTABLISHED EGFR NON-AFR. AMER. 88(L) >89 ML/MIN/1. 73 M2 01/11/2020 11:59 AM CDT [facility] EGFR AFR. AMER. >90 >89 ML/MIN/1. 73 M2 01/11/2020 11:59 AM CDT [facility] GFR NOTES GFR REFERENCE S: 01/11/2020 11:59 AM CDT [facility] Comment: THE ESTIMATED GFR IS CALCULATED USING THE 2009 CKD-EPI EQUATION. THE FOLLOWING CATEGORIES FOR GRADING RENAL FUNCTION ARE RECOMMENDED BY THE INTERNATIONAL SOCIETY OF NEPHROLOGY (KDIGO 2012 CLINICAL PRACTICE GUIDELINE). G1,NORMAL OR HIGH: >89 ml/min/1.73 m2 G2,MILDLY DECREASED: 60-89 ml/min/1.73 m2 G3A,MILDLY TO MODERATELY DECREASED: 45-59 ml/min/1.73 m2 G3B,MODERATELY TO SEVERELY DECREASED: 30-44 ml/min/1.73 m2 G4,SEVERELY DECREASED: 15-29 ml/min/1.73 m2 G5,KIDNEY FAILURE: <15 ml/min/1.73 m2 01/11/2020 11:3 0 AM CDT Adonis Khoury MD LABORATORY Final Result [facility] [address] [place] [address], * (ABNORMAL) CBC W/DIFF AUTOMATED (01/11/2020 11:30 AM CDT) WBC 8.0 4.5 - 10.8 x10'3/uL 01/11/2020 11:48 AM CDT [facility] RBC 4.68 4.10 - 5.40 x10'6/uL 01/11/2020 11:48 AM CDT [facility] HGB 14.5 12.0 - 16.0 G/DL 01/11/2020 11:48 AM CDT [facility] HCT 45.2 36.0 - 47.0 % 01/11/2020 11:48 AM CDT [facility] MCV 96.6 78.0 - 100.0 FL 01/11/2020 11:48 AM CDT [facility] MCH 31.0 27.0 - 31.0 PG 01/11/2020 11:48 AM CDT [facility] MCHC 32.1(L) 33.0 - 36.0 G/DL 01/11/2020 11:48 AM CDT [facility] RDW 13.7 11.5 - 14.5 % 01/11/2020 11:48 AM CDT [facility] PLT 217 150 - 350 x10'3/uL 01/11/2020 11:48 AM CDT [facility] MPV 11.2(H) 7.4 - 10.4 FL 01/11/2020 11:48 AM CDT [facility] DIFFERENTIAL COMMENT NORMAL REFERENCE RANGE NOT ESTABLISHED FOR THE PROPORTIONAL LEUKOCYTE DIFFERENTIAL. 01/11/2020 11:48 AM CDT [facility] SEG NEUTROPHILS 50.8 % 0 11:48 AM CDT [facility] LYMPHOCYTES 33.6 % 01/11/2020 11:48 AM CDT [facility] MONOCYTES 10.8 % 01/11/2020 11:48 AM CDT [facility] EOSINOPHILS 4.2 % 01/11/2020 11:48 AM CDT [facility] BASOPHILS 0.4 % 01/11/2020 11:48 AM CDT [facility] IMMATURE GRANS % 0.2 % 01/11/20 20 11:48 AM CDT [facility] NRBC 0.0 % 01/11/2020 11:48 AM CDT [facility] ABS. NEUTROPHILS 4.07 1.60 - 8.30 x10'3/uL 01/11/2020 11:48 AM CDT [facility] ABS. LYMPHOCYTES 2.70 0.80 - 4.70 x10'3/uL 01/11/2020 11:48 AM CDT [facility] ABS. MONOCYTES 0.87 0.00 - 1.50 x10'3/uL 01/11/2020 11:48 AM CDT [facility] ABS. EOSINOPHILS 0.34 0.00 - 0.40 x10'3/uL 01/11/2020 11:48 AM CDT [facility] ABS. BASOPHILS 0.03 0.00 - 0.20 x10'3/uL 01/11/2020 11:48 AM CDT [facility] ABS. IMMATURE GRANULOCYTES 0.02 0.00 - 0.03 x10'3/uL 01/11/2020 11:48 AM CDT [facility] ABS. NUCLEATED RBC'S 0.00 0.00 x10'3/uL 01/11/2020 11:48 AM CDT [facility] 01/11/2020 11:3 0 AM CDT us Adonis Khoury MD LABORATORY Final Result [facility] [address] [place] [address], documented in this encounter Visit Diagnoses Diagnosis Proteinuria- Primary documented in this encounter Care Teams Grease Packer Relationship Specialty Start Date End Date Joseph Hernandez MD [address] [place] [address] PCP - General FAMILY PRACTICE 11/23/19 documented as of this encounter
--- OUTSIDE RECORDS SUMMARY | 2024-08-05 04:53 | XMS_ITS | Encounter Summary ---
Author Organization [facility] Address [address] [place] [address]. [place] [address] [place] [address] Care Team Providers Care Wired Music Operator Name Role Phone Joseph Hernandez MD Primary Care Provider [phone] Encounter Details Date Type Department Care Team (Latest Contact Info) Description 01/11/2020 11:00 AM CDT - 01/11/2020 11:59 PM CDT Hospital Encounter [facility] [address] [place] [address] Adonis Khoury MD Discharge Disposition: Home or Self Care [...] Diagnosis Comments HC CREATININE OTH SOURCE Routine 01/11/2020 11:30 AM CDT Proteinuria HC URINALYSIS AUTO W/MICRO Routine 01/11/2020 11:30 AM CDT Proteinuria RENAL FUNCTION PANEL Routine 01/11/2020 11:30 AM CDT Proteinuria CBC W/DIFF AUTOMATED Routine 01/11/2020 11:30 AM CDT Proteinuria documented in this encounter Results * (ABNORMAL) PROTEIN CREAT RATIO URINE (01/11/2020 11:30 AM CDT) PROTEIN RANDOM (U) 23.0(H) <11.9 MG/DL 01/11/2020 2:21 PM CDT [facility] CREATININE (U) 39.9 MG/DL 01/11/2020 2:21 PM CDT [facility] Comment:REFERENCE RANGE NOT ESTABLISHED PROTEIN/CREATINI NE RATIO MG/MG 0.6 01/11/2020 2:21 PM CDT [facility] Comment:CALCULATED VALUE. [facility] REFERENCE RANGE HAS NOT BEEN ESTABLISHED. URINE SPECIMEN / Unknown 01/11/2020 11:30 AM CDT us Adonis Khoury MD URINE ORDERABLES Final Result [facility] [place] [id number], * (ABNORMAL) URINALYSIS (01/11/2020 11:30 AM CDT) COLOR (U) YELLOW 01/11/2020 11:55 AM CDT [facility] TRANSPARENCY CLEAR 01/11/2020 11:55 AM CDT [facility] SPECIFIC GRAVITY (U) 1.025 1.000 - 1.025 01/11/2020 11:55 AM CDT [facility] U PH 6.0 5.0 - 8.0 01/11/2020 11:55 AM CDT [facility] LEUKOCYTES (U) NEGATIVE NEGATIVE 01/11/2020 11:55 AM CDT [facility] NITRITES NEGATIVE NEGATIVE 01/11/2020 11:55 AM CDT [facility] PROTEIN (U) TRACE(A) NEGATIVE 01/11/2020 11:55 AM CDT [facility] URINE GLUCOSE NEGATIVE NEGATIVE 01/11/2020 11:55 AM CDT [facility] KETONES MG/DL (U) NEGATIVE NEGATIVE 01/11/2020 11:55 AM CDT [facility] UROBILINOGEN 0.2 <1.0 EU/DL 01/11/2020 11:55 AM CDT [facility] BILIRUBIN (U) NEGATIVE NEGATIVE 01/11/2020 11:55 AM CDT [facility] BLOOD (U) NEGATIVE NEGATIVE 01/11/2020 11:55 AM CDT [facility] WBC/HPF 0-5 0 - 5 /HPF 01/11/2020 12:20 PM CDT [facility] EPI/HPF MANY /LPF 01/11/2020 11:55 AM CDT [facility] BACTERIA (U) TRACE /HPF 01/11/2020 11:55 AM CDT [facility] URINE SPECIMEN OBTAINED BY CLEAN CATCH PROCEDURE / Unknown 01/11/2020 11:30 AM CDT Adonis Khoury MD URINE ORDERABLES Final Result [facility] [address] [place] [address], * (ABNORMAL) RENAL FUNCTION PANEL (01/11/2020 11:30 AM CDT) SODIUM S/P/B 141 136 - 145 MMOL/L 01/11/2020 11:59 AM CDT [facility] POTASSIUM S/P/B 4.4 3.5 - 5.1 MMOL/L 01/11/2020 11:59 AM CDT [facility] CHLORIDE S/P/B 102 98 - 107 MMOL/L 01/11/2020 11:59 AM CDT [facility] CO2 30.7 21.0 - 32.0 MMOL/L 01/11/2020 11:59 AM CDT [facility] GLUCOSE 88 70 - 99 MG/DL 01/11/2020 11:59 AM CDT [facility] Comment: FASTING GLUCOSE 100 TO 125 MG/DL IS CONSISTENT WITH IMPAIRED FASTING GLUCOSE. FASTING GLUCOSE >125 MG/DL IS CONSISTENT WITH DIABETES. RANDOM GLUCOSE >200 MG/DL WITH HYPERGLYCEMIC SYMPTOMS IS CONSISTENT WITH DIABETES. PER ADA GUIDELINES BUN 15 6 - 24 MG/DL 01/11/2020 11:59 AM T [facility] CREATININE S/P/B 0.64 0.55 - 1.02 MG/DL 01/11/2020 11:59 AM T [facility] CALCIUM S/P/B 9.8 8.4 - 10.5 MG/DL 01/11/2020 11:59 AM T [facility] ALBUMIN S/P/B 3.9 3.4 - 5.0 G/DL 01/11/2020 11:59 AM T [facility] PHOSPHORUS 4.0 2.6 - 4.7 MG/DL 01/11/2020 2:17 PM T [facility] ANION GAP 8.3 5.0 - 15.0 MMOL/L 01/11/2020 11:59 AM [facility] OSMOLALITY (CALC) 292 MOSM/KG 020 11:59 AM T [facility] Comment:REFERENCE RANGE NOT ESTABLISHED EGFR NON-AFR. AMER. 88(L) >89 ML/MIN/1. 73 M2 01/11/2020 11:59 AM [facility] EGFR AFR. AMER. >90 >89 ML/MIN/1. 73 M2 01/11/2020 11:59 AM [facility] GFR NOTES GFR REFERENCE S: 01/11/2020 11:59 AM [facility] Comment: THE ESTIMATED GFR IS CALCULATED [...] CDT Adonis Khoury MD LABORATORY Final Result [facility] [address] [place] [address], * (ABNORMAL) CBC W/DIFF AUTOMATED (01/11/2020 11:30 AM CDT) WBC 8.0 4.5 - 10.8 x10'3/uL 01/11/2020 11:48 AM CDT [facility] RBC 4.68 4.10 - 5.40 x10'6/uL 01/11/2020 11:48 AM CDT [facility] HGB 14.5 12.0 - 16.0 G/DL 01/11/2020 11:48 AM CDT [facility] HCT 45.2 36.0 - 47.0 % 01/11/2020 11:48 AM CDT [facility] MCV 96.6 78.0 - 100.0 FL 01/11/2020 11:48 AM CDT [facility] MCH 31.0 27.0 - 31.0 PG 01/11/2020 11:48 AM CDT [facility] MCHC 32.1(L) 33.0 - 36.0 G/DL 01/11/2020 11:48 AM CDT [facility] RDW 13.7 11.5 - 14.5 % 01/11/2020 11:48 AM CDT [facility] PLT 217 150 - 350 x10'3/uL 01/11/2020 11:48 AM CDT [facility] MPV 11.2(H) 7.4 - 10.4 FL 01/11/2020 11:48 AM CDT [facility] DIFFERENTIAL COMMENT NORMAL REFERENCE RANGE NOT ESTABLISHED FOR THE PROPORTIONAL LEUKOCYTE DIFFERENTIAL. 01/11/2020 11:48 AM CDT [facility] SEG NEUTROPHILS 50.8 % 0 11:48 AM CDT [facility] LYMPHOCYTES 33.6 % 01/11/2020 11:48 AM CDT [facility] MONOCYTES 10.8 % 01/11/2020 11:48 AM CDT [facility] EOSINOPHILS 4.2 % 01/11/2020 11:48 AM CDT [facility] BASOPHILS 0.4 % 01/11/2020 11:48 AM CDT [facility] IMMATURE GRANS % 0.2 % 01/11/20 20 11:48 AM CDT [facility] NRBC 0.0 % 01/11/2020 11:48 AM CDT [facility] ABS. NEUTROPHILS 4.07 1.60 - 8.30 x10'3/uL 01/11/2020 11:48 AM CDT [facility] ABS. LYMPHOCYTES 2.70 0.80 - 4.70 x10'3/uL 01/11/2020 11:48 AM CDT [facility] ABS. MONOCYTES 0.87 0.00 - 1.50 x10'3/uL 01/11/2020 11:48 AM CDT [facility] ABS. EOSINOPHILS 0.34 0.00 - 0.40 x10'3/uL 01/11/2020 11:48 AM CDT [facility] ABS. BASOPHILS 0.03 0.00 - 0.20 x10'3/uL 01/11/2020 11:48 AM CDT [facility] ABS. IMMATURE GRANULOCYTES 0.02 0.00 - 0.03 x10'3/uL 01/11/2020 11:48 AM CDT [facility] ABS. NUCLEATED RBC'S 0.00 0.00 x10'3/uL 01/11/2020 11:48 AM CDT [facility] 01/11/2020 11:3 0 AM CDT Adonis Khoury MD LABORATORY Final Result [facility] [address] [place] [id number], documented in this encounter Visit Diagnoses Diagnosis Proteinuria documented in this encounter Care Teams Wired Music Operator Relationship Specialty Start Date End Date Joseph Hernandez MD [address] [place], [place] [id number] PCP - General FAMILY PRACTICE 11/23/19 documented as of this encounter
--- OUTSIDE RECORDS SUMMARY | 2024-08-05 04:53 | XMS_ITS | Encounter Summary ---
Author Organization [facility] Address [address] [place] [address]. [place] [address] [place] [address] Care Team Providers Care Architecture Instructor Name Role Phone Unavailable Primary Care Provider Unavailabl e Encounter Details Date Type Department Care Team (Late st Contact Info) Description 03/15/[address] [facility] [place] [address] Ferdinand Cooper MD Social History Tobacco Use [...] as of this encounter Visit Diagnoses Diagnosis Special screening for malignant neoplasms, colon documented in this encounter
--- OUTSIDE RECORDS SUMMARY | 2024-08-05 04:53 | XMS_ITS | Encounter Summary ---
Author Organization [facility] Address [address] [place] [address]. [place] [address] [place] [address] Care Team Providers Care Crisis Counselor Name Role Phone Unavailable Primary Care Provider Unavailabl e Encounter Details Date Type Department Care Team (Latest Contact Info) Description 03/15/2015 Abstract [facility] Ferdinand Cooper MD Social History Tobacco Use [...] Procedure Name Priority Date/Time Associated Diagnosis Comments PATHOLOGY Routine 03/15/2015 12:00 AM CDT documented in this encounter Results * Pathology (03/15/2015 12:00 AM CDT) COPATH REPORT [facility] DEPARTMENT OF LABORATORY MEDICINE [address] [place] [address] SURG(NOTE) Patient Name: ELLEN IBARRA MR#: [id number] Specimen #[id number] Source: Rectum, polyp Clinical History: Referring Facility: ??#[facility] MRN: ??#[id number] Acct: ??#[id number] ?? Preoperative Diagnosis: Screening colonoscopy. Postoperative Diagnosis: Colorectal polyp. ??Grade I hemorrhoids. ?? Gross Description: Received in formalin as rectal polyp are nine pieces of lee tissue ranging from 0.1 to 0.2 cm. ??The specimen is entirely submitted in one cassette. ?? Final Diagnosis: RECTUM, ENDOSCOPIC POLYP BIOPSY: ?- FRAGMENTS OF HYPERPLASTIC POLYP AND COLONIC MUCOSA WITHOUT DIAGNOSTIC ABNORMALITY. Electronicall y Signed Out ? Chong Salas, ??M.D. ?[id number] [facility] TO EPIC CONVERSION 03/15/2015 03/15/2015 Narrative [facility] TO EPIC CONVERSION - 03/15/2015 2:31 PM CDT Result Communication: No patient communication needed at this time us Ferdinand Cooper MD PATHOLOGY/CYTOLOGY ORDERABLES Final Result [facility] CON[facility] documented in this encounter Visit Diagnoses Not on filedocumented in this encounter
--- OUTSIDE RECORDS SUMMARY | 2024-08-05 04:53 | XMS_ITS | Encounter Summary ---
Author Organization [facility] Address [address] [place] [address]. [place] [address] [place] [address] Care Team Providers Care Calker Name Role Phone Joseph Hernandez MD Primary Care Provider [phone] Reason for Visit * Reason Comments Lab (SCAN) Encounter Details Date Type Department Care Team ([facility] st Contact Info) Description 11/16/2019 Scan [facility] [address] [place] [address] [phone] Scanned, Documents Lab (SCAN) Social History Tobacco [...] Diagnosis Comments OUTSIDE LAB (SCAN ORDER) Routine 11/16/2019 documented in this encounter Results * OUTSIDE LAB (11/16/2019) 11/16/2019 us Documents Scanned SCANNING Final Result [facility] documented in this encounter Visit Diagnoses Not on filedocumented in this encounter Care Teams Calker Relationship Specialty Start Date End Date Joseph Hernandez MD [address] [place] [address] PCP - General FAMILY PRACTICE 11/23/19 documented as of this encounter
--- OUTSIDE RECORDS SUMMARY | 2024-08-05 04:53 | XMS_ITS | Encounter Summary ---
Author Organization [facility] Address [address] [place] [address]. [place], [place] [address] [place] [address] Care Team Providers Care Supervisor Prepress Name Role Phone Joseph Hernandez MD Primary Care Provider [phone] Encounter Details Date Type Department Care Team (Latest Contact Info) Description 01/11/2020 Travel Social History Tobacco Use Types Packs/Day [...] filedocumented in this encounter Care Teams Supervisor Prepress Relationship Specialty Start Date End Date Joseph Hernandez MD [address] [place] [address] PCP - General FAMILY PRACTICE 11/23/19 documented as of this encounter
--- OUTSIDE RECORDS SUMMARY | 2024-08-05 04:53 | XMS_ITS | Encounter Summary ---
Author Organization [facility] Address [address] [place] [address]. [place] [address] [place] [address] Care Team Providers Care Coat Baster Name Role Phone Unavailable Primary Care Provider Unavailabl e Encounter Details Date Type Department Care Team (Late st Contact Info) Description 03/15/2015 Abstract [facility] [address] [place] [address], [address] [place] [address] Ann-Marie Ledezma MD Social History Tobacco Use Types Packs/Day Years Used Date Smoking Tobacco: Never Assessed Comments Unknown Sex and Gender Information Value Date Recorded Sex Assigned at Not on file Legal Sex Female 8:27 PM CDT Gender Identity Not on file Sexual Orientation Not on file documented as of this encounter Procedure Notes * Ann-Marie Ledezma MD - 03/15/2015 7:30 AM CDT [address] [address] Patient: ELLEN IBARRA Med Rec#: [id number] Birthdate: 1945 Admit/Svce Date: 03/15/2015 Disch Date: Attending Md: ANN-MARIE LEDEZMA MD OPERATIVE REPORT PATIENT: Ellen Ibarra : 1945 MR #: [id number], [address] COLONOSCOPY PROCEDURE REPORT EXAM DATE: 03/15/2015 PATIENT NAME: Ellen Ibarra MR #: [id number] BIRTHDATE: 1945 ATTENDING: Ann-Marie Ledezma MD STATUS: outpatient INDICATIONS: The patient is a 69 yr old Female here for a colonoscopy due to screening and average risk patient for colon cancer PROCEDURE PERFORMED: Colonoscopy with biopsy MEDICATIONS: Per Anesthesia. ESTIMATED BLOOD LOSS: None CONSENT: The patient understands the risks and benefits of the procedure and understands that these risks include, but are not limited to: sedation, allergic reaction, infection, perforation and/or bleeding. Alternative means of evaluation and treatment include, among others: physical exam, x-rays, and/or surgical intervention. The patient elects to proceed with this endoscopic procedure. DESCRIPTION OF PROCEDURE: During intra-op preparation period all mechanical and medical equipment was checked for proper function. Hand hygiene and appropriate measures for infection prevention was taken. After the risks, benefits and alternatives of the procedure were thoroughly explained. Informed consent was verified, confirmed and timeout was successfully executed by the treatment team. A digital exam revealed no abnormalities of the rectum. The [place] Colon Scope s/n [id number] endoscope was introduced through the anus and advanced to the cecum, which was identified by both the appendix and ileocecal valve. The prep quality was excellent.. The instrument was then slowly withdrawn as the colon was fully examined. COLON FINDINGS: A polypoid shaped pedunculated polyp measuring 3 mm in size was found in rectum seen upon the retroflexed view. Retroflexed views revealed internal hemorrhoid. The scope was then completely withdrawn from the patient and the procedure terminated. ADVERSE EVENTS: There were no complications. IMPRESSIONS: 1. Pedunculated polyp was found in rectum seen upon the retroflexed view 2. Retroflexed views revealed internal hemorrhoid RECOMMENDATIONS: 1. high fiber diet 2. await biopsy results 3. await pathology results 4. follow-up: office 1 week(s) RECALL: for Colonoscopy. Ann-Marie Ledezma MD eSigned: Ann-Marie Ledezma MD 03/15/2015 10:24 AM cc: PATIENT NAME: Ellen Ibarra MR#: [id number] RO/gid [id number] E-Signed By D: Ann-Marie Ledezma MD 03/15/2015 09:25 A A [id number] cc: Ann-Marie Ledezma MD documented in this encounter Plan of Treatment Not on file documented as of this encounter Visit Diagnoses Not on filedocumented in this encounter
--- OUTSIDE RECORDS SUMMARY | 2024-08-05 05:13 | XMS_ITS | Encounter Summary ---
Author Organization [facility] Address [address] [place] [address]. [place], [place] [address] [place] [address] Care Team Providers Care Peat Shredder Tender Name Role Phone Joseph Hernandez MD Primary Care Provider [phone] Reason for Visit * Reason Onset Date Comments Results 02/26/2022 Encounter Details Date Type Department Care Team ([facility] st Contact Info) Description 02/26/2022 Telephone [facility] [address] [place] [address] Flaco-Per Santizo MD Results Social [...] on filedocumented in this encounter Care Teams Peat Shredder Tender Relationship Specialty Start Date End Date Joseph Hernandez MD [address] [place] [address] PCP - General FAMILY PRACTICE 11/23/19 documented as of this encounter
--- OUTSIDE RECORDS SUMMARY | 2024-08-05 05:13 | XMS_ITS | Encounter Summary ---
Author Organization [facility] Address [address] [place] [address]. [place] [address] [place] [address] Care Team Providers Care Feed Manager Name Role Phone Blossom Roberto MD Primary Care Provider [phone] Reason for Visit * Reason Comments Follow Up Encounter Details Date Type Department Care Team (Late st Contact Info) Description 04/25/2020 9:30 AM CDT Office Visit [facility] [address] [place] [address] Chelita Helton MD [address] [place] [address] Follow Up Social History Tobacco [...] hypertension documented in this encounter Care Teams Feed Manager Relationship Specialty Start Date End Date Blossom Roberto MD [address] [place] [address] PCP - General FAMILY PRACTICE 11/23/19 documented as of this encounter
--- OUTSIDE RECORDS SUMMARY | 2024-08-05 05:13 | XMS_ITS | Encounter Summary ---
Author Organization [facility] Address [address] [place] [address]. [place] [address] [place] [address] Care Team Providers Care Air Conditioning Engineer Name Role Phone Blossom Roberto MD Primary Care Provider Reason for Visit * Reason Comments Follow Up Encounter Details Date Type Department Care Team (Late st Contact Info) Description 02/12/2022 9:45 AM CDT Office Visit [facility] [address] [place] [address] Per Collins MD Follow Up Social [...] 02/12/2022 COLOR (U) YELLOW TRANSPARENCY CLEAR Specific [place] (U) 1.020 U PH 6.5 LEUKOCYTE ESTERASE [...] type, unspecified site Diabetes mellitus without complication ([facility]) Type II or unspecified type diabetes mellitus without mention of complication, not stated as uncontrolled 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
--- OUTSIDE RECORDS SUMMARY | 2024-08-05 05:13 | XMS_ITS | Encounter Summary ---
Author Organization [facility] Address [address] [place] [address]. [place] [address] [place] [address] Care Team Providers Care Patient Relations Manager Name Role Phone Joseph Hernandez MD Primary Care Provider [phone] Encounter Details Date Type Department Care Team (Latest Contact Info) Description 11/19/2022 10:29 AM CDT - 11/19/2022 11:59 PM CDT Hospital Encounter [facility] [address] [facility] [place] [address] Per Collins MD Discharge Disposition: [...] 34.0(H) <11.9 MG/DL 11/19/2022 11:[address] [facility] CREATININE RANDOM (U) 79.4 MG/DL 11/19/2022 11:[address] [facility] Comment:REFERENCE RANGE NOT ESTABLISHED PROTEIN/CREATINI NE RATIO 0.4 11/19/2022 11:[address] [facility] Comment:CALCULATED VALUE. ST ANDARD REFERENCE RANGE HAS NOT BEEN ESTABLISHED. URINE SPECIMEN / Unknown 11/19/2022 10:33 AM CDT us Per Collins MD URINE ORDERABLES Florinda ochoa Result [facility] [address] [place] [address], documented in this encounter Visit Diagnoses Diagnosis Proteinuria documented in this encounter Care Teams Patient Relations Manager Relationship Specialty Start Date End Date Joseph Hernandez MD [address] [place] [address] PCP - General FAMILY PRACTICE 11/23/19 documented as of this encounter
--- OUTSIDE RECORDS SUMMARY | 2024-08-05 05:13 | XMS_ITS | Encounter Summary ---
Author Organization [facility] Address [address] [place] [address]. [place], [place] [address] [place] [address] Care Team Providers Care Sand Analyst Name Role Phone Joseph Hernandez MD Primary Care Provider [phone] Encounter Details Date Type Department Care Team [...] on filedocumented in this encounter Care Teams Sand Analyst Relationship Specialty Start Date End Date Joseph Hernandez MD [address] [place] [address] PCP - General FAMILY PRACTICE 11/23/19 documented as of this encounter
--- OUTSIDE RECORDS SUMMARY | 2024-08-05 05:13 | XMS_ITS | Clinical Summary ---
Author Organization [facility] Address [address] [place] [address]. [place] [address] [place] [address] Care Team Providers Care Cable Tool Operator Name Role Phone Joseph Hernandez MD Primary Care Provider [phone] Medications albuterol sulfate HFA 108 (90 Base) [...] unspecified site 03/12/2022 Diabetes mellitus without complication ([facility]) 03/12/2022 Nephropathy due to nonsteroi francisco anti-inflammatory [...] this topic Insurance AET AETNA Care Teams Cable Tool Operator Relationship Specialty Start Date End Date Joseph Hernandez MD [address] [place] [address] PCP - General FAMILY PRACTICE 11/23/19
--- OUTSIDE RECORDS SUMMARY | 2024-08-05 05:13 | XMS_ITS | Encounter Summary ---
Author Organization [facility] Address [address] [place] [address]. [place] [address] [place] [address] Care Team Providers Care Stope Miner Name Role Phone Joseph Hernandez MD Primary Care Provider [phone] Encounter Details Date Type Department Care Team ([facility] st Contact Info) Description 10/10/2020 Scan [facility] [address] [place] [address] [id number] Scanned, Documents Social History Tobacco Use Types [...] on filedocumented in this encounter Care Teams Stope Miner Relationship Specialty Start Date End Date Joseph Hernandez MD [address] [place] [address] PCP - General FAMILY PRACTICE 11/23/19 documented as of this encounter
--- OUTSIDE RECORDS SUMMARY | 2024-08-05 05:13 | XMS_ITS | Encounter Summary ---
Author Organization [facility] Address [address] [place] [address]. [place] [address] [place] [address] Care Team Providers Care Oil Producer Name Role Phone Joseph Hernandez MD Primary Care Provider [phone] Reason for Visit * Reason Comments Lab (SCAN) Encounter Details Date Type Department Care Team ([facility] st Contact Info) Description 04/10/2021 Scan [facility] [address] [place] [address] [phone] Scanned, Documents Lab (SCAN) Social History Tobacco [...] 04/10/2021 us Documents Scanned SCANNING Final Result [facility] documented in this encounter Visit Diagnoses Not on filedocumented in this encounter Care Teams Oil Producer Relationship Specialty Start Date End Date Joseph Hernandez MD [address] [place] [address] PCP - General FAMILY PRACTICE 11/23/19 documented as of this encounter
--- OUTSIDE RECORDS SUMMARY | 2024-08-05 05:13 | XMS_ITS | Encounter Summary ---
Author Organization [facility] Address [address] [place] [address]. [place] [address] [place] [address] Care Team Providers Care Vp Product Name Role Phone Joseph Hernandez MD Primary Care Provider [phone] Encounter Details Date Type Department Care Team (Late st Contact Info) Description 02/12/2022 Orders Only [facility] [address] [facility] [place] [address] Per Collins MD Social History [...] 18.2(H) <14 MG/DL 02/14/2022 1:36 PM CDT [facility] PROTEIN (ELP) (U) THIS URINE PEP WAS INTERPRETED BY 02/15/2022 12:56 PM CDT [facility] Comment: DR ORLANDO PUCKETT MD THERE IS MILD RANDOM PROTEINURIA, WHICH IS MAINLY ALBUMIN AND TRANSFERRIN. A MONOCLONAL PROTEIN (BENCE CASTORENA PROTEIN) IS NOT SEEN IN THIS RANDOM SAMPLE. URINE SPECIMEN / Unknown 02/12/2022 11:00 AM CDT us Per Collins MD URINE ORDERABLES Florinda ochoa Result [facility] [address] [place] [address], [id number] * URINALYSIS (02/12/2022 11:00 AM CDT) COLOR (U) YELLOW 02/12/2022 11:44 AM CDT [facility] TRANSPARENCY CLEAR 02/12/2022 11:44 AM CDT [facility] SPECIFIC GRAVITY (U) 1.020 1.000 - 1.025 02/12/2022 11:44 AM CDT [facility] U PH 6.5 5.0 - 8.0 02/12/2022 11:44 AM CDT [facility] LEUKOCYTES (U) NEGATIVE NEGATIVE 02/12/2022 11:44 AM CDT [facility] NITRITES NEGATIVE NEGATIVE 02/12/2022 11:44 AM CDT [facility] PROTEIN (U) NEGATIVE NEGATIVE 02/12/2022 11:44 AM CDT [facility] URINE GLUCOSE NEGATIVE NEGATIVE 02/12/2022 11:44 AM CDT [facility] KETONES MG/DL (U) NEGATIVE NEGATIVE 02/12/2022 11:44 AM CDT [facility] UROBILINOGEN 0.2 <1.0 EU/DL 02/12/2022 11:44 AM CDT [facility] BILIRUBIN (U) NEGATIVE NEGATIVE 02/12/2022 11:44 AM CDT [facility] BLOOD (U) NEGATIVE NEGATIVE 02/12/2022 11:44 AM CDT [facility] WBC/HPF 0-5 0 - 5 /HPF 02/12/2022 11:44 AM CDT [facility] RBC/HPF 0-5 0 - 5 /HPF 02/12/2022 11:44 AM CDT [facility] EPI/LPF MODERATE /LPF 02/12/2022 11:44 AM CDT [facility] BACTERIA (U) 1+ /HPF 02/12/2022 11:44 AM CDT [facility] MUCUS PRESENT 02/12/2022 11:44 AM CDT [facility] URINE SPECIMEN OBTAINED BY CLEAN CATCH PROCEDURE / Unknown 02/12/2022 11:00 AM CDT Per Collins MD URINE ORDERABLES Florinda l Result [facility] [address] [place] [address], [place] [phone] * (ABNORMAL) COMPLEMENT, TOTAL (CH50) (02/12/2022 10:58 AM CDT) COMPLEMENT CH50 >60(H) 31 - 60 U/mL 02/16/2022 2:19 PM CDT [facility] Comment: Test Performed by [facility] [employer], [facility], [address] [place] [address] Chong Sanchez M.D., Ph.D., Director of Laboratories , [facility] [id number] 02/12/2022 10:5 8 AM CDT Per Collins MD LABORATORY Final Result Performing Organization Address City/[facility]/ZIP Co de Phone Number [email or web address] [address] [place] [address], [place] [phone] * COMPLEMENT C4 (02/12/2022 10:58 AM CDT) COMPLEMENT C4 35 15 - 57 mg/dL 02/14/2022 9:58 PM CDT [facility] Comment: Test Performed by [employer], [facility], [address] [place] [address] Chong Sanchez M.D., Ph.D., Director of Laboratories , CLIA [id number] 02/12/2022 10:5 8 AM CDT us Per Collins MD LABORATORY Final Result Performing Organization Address City/[facility]/ZIP Co de Phone Number [facility] , [place] [phone] * COMPLEMENT C3 (02/12/2022 10:58 AM CDT) Pathologist [facility] COMPLEMENT C3 155 83 - 193 mg/dL 02/14/2022 10:03 PM CDT [facility] Comment: Test Performed by [employer], [employer], [address] [place] [address] Chong Sanchez M.D., Ph.D., Director of Laboratories , CLIA [id number] 02/12/2022 10:5 8 AM CDT us Per Collins MD LABORATORY Final Result Performing Organization Address [facility]/ZIP Co de Phone Number [facility] [address] , [place] [phone] * ANCA VASCULITIS PANEL (02/12/2022 10:58 AM CDT) Pathologist [facility] ANCA SCREEN Negative Negative 02/20/2022 10:34 PM CDT [facility] Comment: ANCA Screen includes evaluation [...] <1.0 <1.0 AI 2021 10:34 PM CDT [facility] Comment: ?Value ?? Interpretation ? [...] PROTEINASE-3 AB <1.0 <1.0 10:34 PM CDT [facility] Comment: ? Value ?Interpretation ? <1.0 AI: No Antibody Detected ?>or=1.0 AI: Antibody Detected Autoantibodies to proteinase-3 (CT-3) are accepted as characteristic for granulomatosis with polyangiitis (GPA, Barbara's), and are detectable in 95% of the histologically proven cases. The cytoplasmic IFA pattern, (c-ANCA), is based largely on autoantibody to CT-3 which serves as the primary antigen. These autoantibodies are present in active disease. Test Performed by [employer] [facility], [employer] [facility], [address] [place], [place] Chong Sanchez M.D., Ph.D., Director of Laboratories , [facility] [id number] 02/12/2022 10:5 8 AM CDT Per Collins MD LABORATORY Final Result [facility] [address] [place], [place] , [place] [phone] * ANTINUCLEAR ANTIBODY WI RFX (02/12/2022 10:58 AM CDT) JOSE MANUEL 0.2 02/13/2022 2:16 PM CDT [facility] Comment: NEGATIVE: <0.7 RATIO JOSE MANUEL PROFILE AND TITER NOT PERFORMED THE JOSE MANUEL SCREEN TESTS FOR THE FOLLOWING ANTIBODIES BY EIA: SSA1 (RO), SSB1 (LA), ROLON, SCL70, JO1, CENTROMERE, SENIOR VALIDATION ENGINEER HISTONE MUST BE ORDERED SEPARATELY DNA (DS) ANTIBODY <0.6 IU/ML 022 2:16 PM CDT [facility] Comment: NEGATIVE: <10 IU/mL EQUIVOCAL: 10 to 15 IU/mL POSITIVE: >15 IU/mL THIS QUANTITATIVE ASSAY IS CALIBRATED TO THE [employer]'S WO/80 STANDARD. THE LEVEL OF dsDNA AUTOANTIBODY GERERALLY CORRELATES WITH THE LEVEL OF DISEASE ACTIVITY IN SYSTEMIC LUPUS ERYTHMATOSUS 02/12/2022 10:5 8 AM CDT Per Collins MD LABORATORY Final Result [facility] [address] [place] [address], [place] [phone] [id number] * PROTEIN, ELECTROPHORESIS (02/12/2022 10:58 AM CDT) TOTAL PROTEIN (ELECTROPHORESIS SERUM) 7.1 6.0 - 8.3 G/DL 02/14/2022 1:36 PM CDT [facility] ALBUMIN ELECTROPHORESIS S/P/B 4.1 3.4 - 4.9 G/DL 02/14/2022 1:31 PM CDT [facility] [id number] S/P/B 0.3 0.2 - 0.4 G/DL 02/14/2022 1:31 PM CDT [facility] [id number] S/P/B 0.8 0.4 - 1.0 G/DL 02/14/2022 1:31 PM CDT [facility] BETA GLOBULIN S/P/B 0.9 0.5 - 1.2 G/DL 02/14/2022 1:31 PM CDT [facility] GAMMA GLOBULIN S/P/B 1.0 0.6 - 1.6 G/DL 02/14/2022 1:31 PM T [facility] ELECTROPHORESIS INTERPRETATION THIS SERUM PEP WAS INTERPRETED BY 02/15/2022 12:56 PM CDT [facility] Comment: DR ORLANDO PUCKETT MD THE TOTAL SERUM PROTEIN IS NORMAL. ELECTROPHORESIS IDENTIFIES NO QUANTITATIVE ABNORMALITIES WITHIN THE PROTEIN FRACTIONS. MONOCLONAL PROTEINS ARE NOT DETECTED. 02/12/2022 10:5 8 AM CDT Per Collins MD LABORATORY Final Result [facility] [address] [place] [address], [id number] documented in this encounter Visit Diagnoses Diagnosis Proteinuria- Primary Chronic kidney disease, stage I Chronic kidney disease, Stage I documented in this encounter Care Teams Vp Product Relationship Specialty Start Date End Date Joseph Hernandez MD [address] [place] [address] PCP - General FAMILY PRACTICE 11/23/19 documented as of this encounter
--- OUTSIDE RECORDS SUMMARY | 2024-08-05 05:13 | XMS_ITS | Encounter Summary ---
Author Organization [facility] Address [address] [place] [address]. [place] [address] [place] [address] Care Team Providers Care Speed Belt Sander Name Role Phone Joseph Hernandez MD Primary Care Provider [phone] Reason for Visit * Reason Comments Lab (SCAN) Encounter Details Date Type Department Care Team ([facility] st Contact Info) Description 02/08/2022 Scan [facility] [address] [place] [address] [phone] Scanned, Documents Lab (SCAN) Social History Tobacco [...] 02/07/2022 us Documents Scanned SCANNING Final Result [facility] documented in this encounter Visit Diagnoses Not on filedocumented in this encounter Care Teams Speed Belt Sander Relationship Specialty Start Date End Date Joseph Hernandez MD [address] [place] [address] PCP - General FAMILY PRACTICE 11/23/19 documented as of this encounter
--- OUTSIDE RECORDS SUMMARY | 2024-08-05 05:13 | XMS_ITS | Encounter Summary ---
Author Organization [facility] Address [address] [place] [address]. [place] [address] [place] [address] Care Team Providers Care Systems Engineering Manager Name Role Phone Joseph Hernandez MD Primary Care Provider [phone] Encounter Details Date Type Department Care Team (Late st Contact Info) Description 10/23/2023 Orders Only [facility] [address] [place] [address] J Carlos Anguiano MD [address] [place] [address] Social History Tobacco Use Types Packs/Day Years [...] hypertension documented in this encounter Care Teams Systems Engineering Manager Relationship Specialty Start Date End Date Joseph Hernandez MD [address] [place] [address] PCP - General FAMILY PRACTICE 11/23/19 documented as of this encounter
--- OUTSIDE RECORDS SUMMARY | 2024-08-05 05:13 | XMS_ITS | Encounter Summary ---
Author Organization [facility] Address [address] [place] [address]. [place] [address] [place] [address] Care Team Providers Care Strategic Consultant Name Role Phone Joseph Hernandez MD Primary Care Provider [phone] Encounter Details Date Type Department Care Team (Late st Contact Info) Description 03/19/2022 Results Notification [facility] [address] [place] [address] Per Collins MD Social History Tobacco [...] on filedocumented in this encounter Care Teams Strategic Consultant Relationship Specialty Start Date End Date Joseph Hernandez MD [address] [place] [address] PCP - General FAMILY PRACTICE 11/23/19 documented as of this encounter
--- OUTSIDE RECORDS SUMMARY | 2024-08-05 05:13 | XMS_ITS | Encounter Summary ---
Author Organization [facility] Address [address] [place] [address]. [place] [address] [place] [address] Care Team Providers Care Modeler Name Role Phone Joseph Hernandez MD Primary Care Provider [phone] Encounter Details Date Type Department Care Team (Latest Contact Info) Description 02/12/2022 10:42 AM CDT - 02/12/2022 11:59 PM CDT Hospital Encounter [facility] [address] [place] [address] Per Collins MD Discharge Disposition: Home or [...] 18.2(H) <14 MG/DL 02/14/2022 1:36 PM CDT [facility] PROTEIN (ELP) (U) THIS URINE PEP WAS INTERPRETED BY 02/15/2022 12:56 PM CDT [facility] Comment: DR ORLANDO PUCKETT MD THERE IS MILD RANDOM PROTEINURIA, WHICH IS MAINLY ALBUMIN AND TRANSFERRIN. A MONOCLONAL PROTEIN (BENCE CASTORENA PROTEIN) IS NOT SEEN IN THIS RANDOM SAMPLE. URINE SPECIMEN / Unknown 02/12/2022 11:00 AM CDT us Per Collins MD URINE ORDERABLES Florinda l Result [facility] [address] [place] [address], [id number] * URINALYSIS (02/12/2022 11:00 AM CDT) COLOR (U) YELLOW 02/12/2022 11:44 AM CDT [facility] TRANSPARENCY CLEAR 02/12/2022 11:44 AM CDT [facility] SPECIFIC GRAVITY (U) 1.020 1.000 - 1.025 02/12/2022 11:44 AM CDT [facility] U PH 6.5 5.0 - 8.0 02/12/2022 11:44 AM CDT [facility] LEUKOCYTES (U) NEGATIVE NEGATIVE 02/12/2022 11:44 AM CDT [facility] NITRITES NEGATIVE NEGATIVE 02/12/2022 11:44 AM CDT [facility] PROTEIN (U) NEGATIVE NEGATIVE 02/12/2022 11:44 AM CDT [facility] URINE GLUCOSE NEGATIVE NEGATIVE 02/12/2022 11:44 AM CDT [facility] KETONES MG/DL (U) NEGATIVE NEGATIVE 02/12/2022 11:44 AM CDT [facility] UROBILINOGEN 0.2 <1.0 EU/DL 02/12/2022 11:44 AM CDT [facility] BILIRUBIN (U) NEGATIVE NEGATIVE 02/12/2022 11:44 AM CDT [facility] BLOOD (U) NEGATIVE NEGATIVE 02/12/2022 11:44 AM CDT [facility] WBC/HPF 0-5 0 - 5 /HPF 02/12/2022 11:44 AM CDT [facility] RBC/HPF 0-5 0 - 5 /HPF 02/12/2022 11:44 AM CDT [facility] EPI/LPF MODERATE /LPF 02/12/2022 11:44 AM CDT [facility] BACTERIA (U) 1+ /HPF 02/12/2022 11:44 AM CDT [facility] MUCUS PRESENT 02/12/2022 11:44 AM CDT [facility] URINE SPECIMEN OBTAINED BY CLEAN CATCH PROCEDURE / Unknown 02/12/2022 11:00 AM CDT us Per Collins MD URINE ORDERABLES Florinda don Result [facility] [address] [place] [address], [place] [phone] * (ABNORMAL) COMPLEMENT, TOTAL (CH50) (02/12/2022 10:58 AM CDT) COMPLEMENT CH50 >60(H) 31 - 60 U/mL 02/16/2022 2:19 PM CDT [employer] Comment: Test Performed by Yu RongDominik, Meez, [address] [place] [address] Chong Sanchez M.D., Ph.D., Director of Laboratories , CLIA [id number] 02/12/2022 10:5 8 AM CDT us Per Collins MD LABORATORY Final Result Performing Organization Address City/[facility]/ZIP Co de Phone Number [employer] , [place] [phone] * COMPLEMENT C4 (02/12/2022 10:58 AM CDT) COMPLEMENT C4 35 15 - 57 mg/dL 02/14/2022 9:58 PM CDT [employer] CARTERSecpanelGEOFFTIL LY Comment: Test Performed by Yu RongDominik, Meez, [address] [place] [address] Chong Sanchez M.D., Ph.D., Director of Laboratories , CLIA [id number] 02/12/2022 10:5 8 AM CDT us Per Collins MD LABORATORY Final Result [employer] , [place] [phone] * COMPLEMENT C3 (02/12/2022 10:58 AM CDT) Pathologist [facility] COMPLEMENT C3 155 83 - 193 mg/dL 02/14/2022 10:03 PM CDT [employer] NERI HOOKER Comment: Test Performed by Dominik Bell Yu Rong Melody [place], [address] [place], [place] Chong Sanchez M.D., Ph.D., Director of Laboratories , [facility] [id number] 02/12/2022 10:5 8 AM CDT Per Collins MD LABORATORY Final Result [employer] CARTERDOMINIK [address] [place], [place] , [place] [phone] * ANCA VASCULITIS PANEL (02/12/2022 10:58 AM CDT) [facility] ANCA SCREEN Negative Negative 02/20/2022 10:34 PM CDT [employer] AMMY CARRILLO Comment: ANCA Screen includes evaluation [...] <1.0 <1.0 AI 2021 10:34 PM CDT [employer] AMMY CARRILLO Comment: ?Value ?? Interpretation ? [...] AB <1.0 <1.0 AI 10:34 PM CDT [employer] AMMY CARRILLO Comment: ? Value ?Interpretation ? <1.0 AI: No Antibody Detected ?>or=1.0 AI: Antibody Detected Autoantibodies to proteinase-3 (NY-3) are accepted as characteristic for granulomatosis with polyangiitis (GPA, Barbara's), and are detectable in 95% of the histologically proven cases. The cytoplasmic IFA pattern, (c-ANCA), is based largely on autoantibody to NY-3 which serves as the primary antigen. These autoantibodies are present in active disease. Test Performed by Yu Rong Dominik, [employer] [facility], [address] [place] [address] Chong Sanchez M.D., Ph.D., Director of Laboratories , [place] [id number] 02/12/2022 10:5 8 AM CDT us Per Collins MD LABORATORY Final Result [employer] [id number] [place], [place] , * ANTINUCLEAR ANTIBODY WI RFX (02/12/2022 10:58 AM CDT) JOSE MANUEL 0.2 02/13/2022 2:16 PM CDT [facility] Comment: NEGATIVE: <0.7 RATIO JOSE MANUEL PROFILE AND TITER NOT PERFORMED THE JOSE MANUEL SCREEN TESTS FOR THE FOLLOWING ANTIBODIES BY EIA: SSA1 (RO), SSB1 (LA), ROLON, SCL70, JO1, CENTROMERE, UTILITY GELATIN MAKER HISTONE MUST BE ORDERED SEPARATELY DNA (DS) ANTIBODY <0.6 IU/ML 022 2:16 PM CDT [facility] Comment: NEGATIVE: <10 IU/mL EQUIVOCAL: 10 to 15 IU/mL POSITIVE: >15 IU/mL THIS QUANTITATIVE ASSAY IS CALIBRATED TO THE [employer]'S WO/80 STANDARD. THE LEVEL OF dsDNA AUTOANTIBODY GERERALLY CORRELATES WITH THE LEVEL OF DISEASE ACTIVITY IN SYSTEMIC LUPUS ERYTHMATOSUS 02/12/2022 10:5 8 AM CDT Per Collins MD LABORATORY Final Result [facility] [address] [place] [id number], [id number] * PROTEIN, ELECTROPHORESIS (02/12/2022 10:58 AM CDT) TOTAL PROTEIN (ELECTROPHORESIS SERUM) 7.1 6.0 - 8.3 G/DL 02/14/2022 1:36 PM CDT [facility] ALBUMIN ELECTROPHORESIS S/P/B 4.1 3.4 - 4.9 G/DL 02/14/2022 1:31 PM CDT [facility] [id number] S/P/B 0.3 0.2 - 0.4 G/DL 02/14/2022 1:31 PM CDT [facility] [id number] S/P/B 0.8 0.4 - 1.0 G/DL 02/14/2022 1:31 PM CDT [facility] BETA GLOBULIN S/P/B 0.9 0.5 - 1.2 G/DL 02/14/2022 1:31 PM CDT [facility] GAMMA GLOBULIN S/P/B 1.0 0.6 - 1.6 G/DL 02/14/2022 1:31 PM CDT [facility] ELECTROPHORESIS INTERPRETATION THIS SERUM PEP WAS INTERPRETED BY 02/15/2022 12:56 PM CDT [facility] Comment: DR ORLANDO PUCKETT MD THE TOTAL SERUM PROTEIN IS NORMAL. ELECTROPHORESIS IDENTIFIES NO QUANTITATIVE ABNORMALITIES WITHIN THE PROTEIN FRACTIONS. MONOCLONAL PROTEINS ARE NOT DETECTED. 02/12/2022 10:5 8 AM CDT Per Collins MD LABORATORY Final Result [facility] [address] [place] [address], [place] [phone] [id number] documented in this encounter Visit Diagnoses Diagnosis Proteinuria Chronic kidney disease, stage I Chronic kidney disease, Stage I documented in this encounter Care Teams Modeler Relationship Specialty Start Date End Date Joseph Hernandez MD [address] [place], [place] [id number] PCP - General FAMILY PRACTICE 11/23/19 documented as of this encounter
--- OUTSIDE RECORDS SUMMARY | 2024-08-05 05:13 | XMS_ITS | Encounter Summary ---
Author Organization [facility] Address [address] [place] [address]. [place] [address] [place] [address] Care Team Providers Care Insulation Hoseman Name Role Phone Joseph Hernandez MD Primary Care Provider [phone] Reason for Visit * Reason Comments Lab (SCAN) Encounter Details Date Type Department Care Team (Late st Contact Info) Description 11/13/2022 Scan [facility] [address] [place] [address] Scanned, Doc C[facility] Lab (SCAN) Social [...] Cikda Scanned SCANNING Edited Result - Final [facility] ONBASE documented in this encounter Visit Diagnoses Not on filedocumented in this encounter Care Teams Insulation Hoseman Relationship Specialty Start Date End Date Joseph Hernandez MD [address] [place] [address] PCP - General FAMILY PRACTICE 11/23/19 documented as of this encounter
--- OUTSIDE RECORDS SUMMARY | 2024-08-05 05:13 | XMS_ITS | Encounter Summary ---
Author Organization [facility] Address [address] [place] [address]. [place] [address] [place] [address] Care Team Providers Care Lip Of Shank Cutter Name Role Phone Blossom Roberto MD Primary Care Provider [phone] Reason for Visit * Reason Comments Follow Up Encounter Details Date Type Department Care Team (Late st Contact Info) Description 10/10/2020 10:45 AM CDT Office Visit [facility] [address] [place] [address] Chelita Helton MD [address] [place] [address] Follow Up Social History Tobacco [...] hypertension documented in this encounter Care Teams Lip Of Shank Cutter Relationship Specialty Start Date End Date Blossom Roberto MD [address] [place] [address] PCP - General FAMILY PRACTICE 11/23/19 documented as of this encounter
--- OUTSIDE RECORDS SUMMARY | 2024-08-05 05:13 | XMS_ITS | Encounter Summary ---
Author Organization [facility] Address [address] [place] [address]. [place] [address] [place] [address] Care Team Providers Care Area Cleaner Name Role Phone Joseph Hernandez MD Primary Care Provider [phone] Reason for Visit * Reason Onset Date Comments Lab Results 05/25/2022 Encounter Details Date Type Department Care Team ([facility] st Contact Info) Description 05/25/2022 Telephone [facility] [address] [place] [address] Flaco-Per Santizo MD Lab Results [...] on filedocumented in this encounter Care Teams Area Cleaner Relationship Specialty Start Date End Date Joseph Hernandez MD [address] [place] [address] PCP - General FAMILY PRACTICE 11/23/19 documented as of this encounter
--- OUTSIDE RECORDS SUMMARY | 2024-08-05 05:13 | XMS_ITS | Encounter Summary ---
Author Organization [facility] Address [address] [place] [address]. [place] [address] [place] [address] Care Team Providers Care Gum Rolling Machine Operator Name Role Phone Joseph Hernandez MD Primary Care Provider [phone] Encounter Details Date Type Department Care Team (Late st Contact Info) Description 11/19/2022 Orders Only [facility] [address] [place] [address] Per Collins MD Social History [...] 34.0(H) <11.9 MG/DL 11/19/2022 11:51 AM CDT [facility] CREATININE RANDOM (U) 79.4 MG/DL 11/19/2022 11:51 AM CDT [facility] Comment:REFERENCE RANGE NOT ESTABLISHED PROTEIN/CREATINI NE RATIO 0.4 11/19/2022 11:51 AM CDT [facility] Comment:CALCULATED VALUE. ST ANDARD REFERENCE RANGE HAS NOT BEEN ESTABLISHED. URINE SPECIMEN / Unknown 11/19/2022 10:33 AM CDT us Per Collins MD URINE ORDERABLES Florinda ochoa Result [facility] [address] [place] [address], documented in this encounter Visit Diagnoses Diagnosis Proteinuria- Primary documented in this encounter Care Teams Gum Rolling Machine Operator Relationship Specialty Start Date End Date Joseph Hernandez MD [address] [place] [address] PCP - General FAMILY PRACTICE 11/23/19 documented as of this encounter
--- OUTSIDE RECORDS SUMMARY | 2024-08-05 05:13 | XMS_ITS | Encounter Summary ---
Author Organization [facility] Address [address] [place] [address]. [place] [address] [place] [address] Care Team Providers Care Retail Pharmacy Technician Name Role Phone Joseph Roberto MD Primary Care Provider [phone] Reason for Visit * Reason Comments Follow Up Encounter Details Date Type Department Care Team (Late st Contact Info) Description 04/17/2021 9:00 AM CDT Office Visit [facility] [address] [place] [address] J Carlos Anguiano MD [address] [place] [address] Follow Up Social History Tobacco [...] if possible. Follow up: 9 months RFP [facility] CC: JOSEPH ROBERTO MD documented in this encounter Plan of Treatment Not on file documented as of this encounter Visit Diagnoses Diagnosis Non-nephrotic range proteinuria- Primary Proteinuria documented in this encounter Care Teams Retail Pharmacy Technician Relationship Specialty Start Date End Date Joseph Roberto MD [address] [place] [address] PCP - General FAMILY PRACTICE 11/23/19 documented as of this encounter
--- OUTSIDE RECORDS SUMMARY | 2024-08-05 05:13 | XMS_ITS | Encounter Summary ---
Author Organization [facility] Address [address] [place] [address]. [place], [place] [address] [place] [address] Care Team Providers Care Editorial Project Manager Name Role Phone Joseph Hernandez MD Primary Care Provider [phone] Encounter Details Date Type Department Care Team (Late st Contact Info) Description 05/21/2022 Orders Only [facility] [address] [place] [address] Per Collins MD Social History Tobacco [...] hypertension documented in this encounter Care Teams Editorial Project Manager Relationship Specialty Start Date End Date Joseph Hernandez MD [address] [place] [address] PCP - General FAMILY PRACTICE 11/23/19 documented as of this encounter
--- OUTSIDE RECORDS SUMMARY | 2024-08-05 05:13 | XMS_ITS | Encounter Summary ---
Author Organization [facility] Address [address] [place] [address]. [place] [address] [place] [address] Care Team Providers Care General Production Worker Name Role Phone Blossom Roberto MD Primary Care Provider [phone] Reason for Visit * Reason Comments CKD Follow-up Pt is here for a one year f/u. Encounter Details Date Type Department Care Team (Late st Contact Info) Description 11/19/2022 9:15 AM CDT Office Visit [facility] [address] [place] [address] Per Collins MD CKD Follow-up (Pt [...] 02/12/2022 COLOR (U) YELLOW TRANSPARENCY CLEAR Specific [place] (U) 1.020 U PH 6.5 LEUKOCYTE ESTERASE [...] Unspecified essential hypertension Diabetes mellitus without complication ([facility]) Type II or unspecified type diabetes mellitus without mention of complication, not stated as uncontrolled documented in this encounter Care Teams General Production Worker Relationship Specialty Start Date End Date Blossom Roberto MD [address] [place] [address] PCP - General FAMILY PRACTICE 11/23/19 documented as of this encounter
--- OUTSIDE RECORDS SUMMARY | 2024-08-05 05:13 | XMS_ITS | Encounter Summary ---
Author Organization [facility] Address [address] [place] [address]. [place] [address] [place] [address] Care Team Providers Care Hook Puller Name Role Phone Joseph Hernandez MD Primary Care Provider [phone] Reason for Visit * Reason Onset Date Comments Medication 11/26/2022 Encounter Details Date Type Department Care Team (Late st Contact Info) Description 11/26/2022 Telephone [facility] [address] [place] [address] Per Collins MD Medication Social [...] on filedocumented in this encounter Care Teams Hook Puller Relationship Specialty Start Date End Date Joseph Hernandez MD [address] [place] [address] PCP - General FAMILY PRACTICE 11/23/19 documented as of this encounter
--- OUTSIDE RECORDS SUMMARY | 2024-08-05 05:13 | XMS_ITS | Encounter Summary ---
Author Organization [facility] Address [address] [place] [address]. [place], [place] [address] [address] Care Team Providers Care Client Services Coordinator Name Role Phone Joseph Hernandez MD Primary Care Provider [phone] Encounter Details Date Type Department Care Team [...] on filedocumented in this encounter Care Teams Client Services Coordinator Relationship Specialty Start Date End Date Joseph Hernandez MD [address] [place] [address] PCP - General FAMILY PRACTICE 11/23/19 documented as of this encounter
--- OUTSIDE RECORDS SUMMARY | 2024-08-05 05:13 | XMS_ITS | Encounter Summary ---
Author Organization [facility] Address [address] [place] [address]. [place] [address] [place] [address] Care Team Providers Care Plunger Scoop Operator Name Role Phone Joseph Hernandez MD Primary Care Provider [phone] Reason for Visit * Reason Comments Lab (SCAN) Encounter Details Date Type Department Care Team ([facility] st Contact Info) Description 03/27/2022 Scan [facility] [address] [place] [address] Scanned, Documents Lab (SCAN) Social History [...] 03/15/2022 us Documents Scanned SCANNING Final Result [facility] ONBASE documented in this encounter Visit Diagnoses Not on filedocumented in this encounter Care Teams Plunger Scoop Operator Relationship Specialty Start Date End Date Joseph Hernandez MD [address] [place] [address] PCP - General FAMILY PRACTICE 11/23/19 documented as of this encounter
--- OUTSIDE RECORDS SUMMARY | 2024-08-05 05:13 | XMS_ITS | Encounter Summary ---
Author Organization [facility] Address [address] [place] [address]. [place] [address] [place] [address] Care Team Providers Care Solar System Installer Name Role Phone Joseph Hernandez MD Primary Care Provider [phone] Reason for Visit * Reason Comments Lab (SCAN) Encounter Details Date Type Department Care Team ([facility] Contact Info) Description 04/20/2020 Scan [facility] [address] [place] [address] Scanned, Documents Lab (SCAN) Social History [...] 04/20/2020 us Documents Scanned SCANNING Final Result [facility] ONBASE documented in this encounter Visit Diagnoses Not on filedocumented in this encounter Care Teams Solar System Installer Relationship Specialty Start Date End Date Joseph Hernandez MD [address] [place] [address] PCP - General FAMILY PRACTICE 11/23/19 documented as of this encounter
--- OUTSIDE RECORDS SUMMARY | 2024-08-05 05:13 | XMS_ITS | Encounter Summary ---
Author Organization [facility] Address [address] [place] [address]. [place], [place] [address] [place] [address] Care Team Providers Care Yarn Spooler Name Role Phone Joseph Hernandez MD Primary Care Provider [phone] Encounter Details Date Type Department Care Team [...] on filedocumented in this encounter Care Teams Yarn Spooler Relationship Specialty Start Date End Date Joseph Hernandez MD [address] [place] [address] PCP - General FAMILY PRACTICE 11/23/19 documented as of this encounter
--- OUTSIDE RECORDS SUMMARY | 2024-08-05 05:13 | XMS_ITS | Encounter Summary ---
Author Organization [facility] Address [address] [place] [address]. [place] [address] [place] [address] Care Team Providers Care Smoke Jumper Supervisor Name Role Phone Joseph Hernandez MD Primary Care Provider [phone] Reason for Visit * Reason Onset Date Comments Orders 03/14/2022 Encounter Details Date Type Department Care Team (Late st Contact Info) Description 03/14/2022 Telephone [facility] [address] [place] [address] Per Collins MD Orders Social [...] request I sent the standing order to [facility]. documented in this encounter Plan of Treatment Not on file documented as of this encounter Visit Diagnoses Diagnosis Proteinuria, unspecified type- Primary documented in this encounter Care Teams Smoke Jumper Supervisor Relationship Specialty Start Date End Date Joseph Hernandez MD [address] [place] [address] PCP - General FAMILY PRACTICE 11/23/19 documented as of this encounter
--- OUTSIDE RECORDS SUMMARY | 2024-08-05 05:13 | XMS_ITS | Encounter Summary ---
Author Organization [facility] Address [address] [place] [address]. [place], [place] [address] [place] [address] Care Team Providers Care Scalper Operator Name Role Phone Joseph Hernandez MD Primary Care Provider [phone] Encounter Details Date Type Department Care Team [...] on filedocumented in this encounter Care Teams Scalper Operator Relationship Specialty Start Date End Date Joseph Hernandez MD [address] [place] [address] PCP - General FAMILY PRACTICE 11/23/19 documented as of this encounter
--- OUTSIDE RECORDS SUMMARY | 2024-08-05 05:13 | XMS_ITS | Encounter Summary ---
Author Organization [facility] Address [address] [place] [address]. [place] [address] [place] [address] Care Team Providers Care Supervisor Metal Cans Name Role Phone Joseph Hernandez MD Primary Care Provider [phone] Encounter Details Date Type Department Care Team (Late st Contact Info) Description 03/13/2022 Results Notification [facility] [address] [place] [address] Per Collins MD Social History Tobacco [...] 02/12/2022 COLOR (U) YELLOW TRANSPARENCY CLEAR Specific [place] (U) 1.020 U PH 6.5 LEUKOCYTE ESTERASE NEGATIVE NITRITES NEGATIVE PROTEIN (U) NEGATIVE URINE GLUCOSE NEGATIVE U KETONES NEGATIVE UROBILINOGEN 0.2 BILIRUBIN (U) NEGATIVE BLOOD NEGATIVE WBC/HPF 0-5 RBC/HPF 0-5 EPI/LPF MODERATE BACTERIA (URINE) 1+ MUCUS PRESENT TOTAL PROTEIN (S) 7.1 ALBUMIN ELECTROPHORESIS S/P/B 4.1 [id number] S/P/B 0.3 [id number] S/P/B 0.8 BETA GLOBULIN S/P/B 0.9 GAMMA [...] filedocumented in this encounter Care Teams Supervisor Metal Cans Relationship Specialty Start Date End Date Joseph Hernandez MD [address] [place] [address] PCP - General FAMILY PRACTICE 11/23/19 documented as of this encounter
--- OUTSIDE RECORDS SUMMARY | 2024-08-05 05:13 | XMS_ITS | Encounter Summary ---
Author Organization [facility] Address [address] [place] [address]. [place] [address] [place] [address] Care Team Providers Care Media Operator Name Role Phone Joseph Hernandez MD Primary Care Provider [phone] Reason for Visit * Reason Comments Lab (SCAN) Encounter Details Date Type Department Care Team ([facility] st Contact Info) Description 10/07/2020 Scan [facility] [address] [place] [phone] Scanned, Documents Lab (SCAN) Social History Tobacco [...] 10/07/2020 us Documents Scanned SCANNING Final Result [facility] documented in this encounter Visit Diagnoses Not on filedocumented in this encounter Care Teams Media Operator Relationship Specialty Start Date End Date Joseph Hernandez MD [address] [place] [address] PCP - General FAMILY PRACTICE 11/23/19 documented as of this encounter
--- OUTSIDE RECORDS SUMMARY | 2024-08-05 05:13 | XMS_ITS | Encounter Summary ---
Author Organization [facility] - [facility] Address [address] [place] [address]. [place] [address] [place] [address] Care Team Providers Care Seed Core Operator Name Role Phone Joseph Hernandez MD Primary Care Provider Reason for Visit * Reason Comments Lab (SCAN) Encounter Details Date Type Department Care Team ([facility] st Contact Info) Description 05/24/2022 Scan [facility] [address] [place] [address] Scanned, Doc Cikda Lab (SCAN) Social [...] us Doc Cikda Scanned SCANNING Final Result [facility] documented in this encounter Visit Diagnoses Not on filedocumented in this encounter Care Teams Seed Core Operator Relationship Specialty Start Date End Date Joseph Hernandez MD [address] [place] [address] PCP - General FAMILY PRACTICE 11/23/19 documented as of this encounter
--- OUTSIDE RECORDS SUMMARY | 2024-08-05 05:13 | XMS_ITS | Encounter Summary ---
Author Organization [facility] Address [address] [place] [address]. [place], [place] [address] [place] [address] Care Team Providers Care Oracle Fusion Consultant Name Role Phone Joseph Hernandez MD Primary Care Provider [phone] Encounter Details Date Type Department Care Team [...] on filedocumented in this encounter Care Teams Oracle Fusion Consultant Relationship Specialty Start Date End Date Joseph Hernandez MD [address] [place] [address] PCP - General FAMILY PRACTICE 11/23/19 documented as of this encounter
--- OUTSIDE RECORDS SUMMARY | 2024-08-05 05:13 | XMS_ITS | Encounter Summary ---
Author Organization [facility] Address [address] [place] [address]. [place] [address] [place] [address] Care Team Providers Care Human Relations Teacher Name Role Phone Joseph Hernandez MD Primary Care Provider [phone] Reason for Visit * Reason Onset Date Comments Lab Order 05/21/2022 Encounter Details Date Type Department Care Team (Late st Contact Info) Description 05/21/2022 Telephone [facility] [address] [place] [address] Per Collins MD Lab Order [...] on filedocumented in this encounter Care Teams Human Relations Teacher Relationship Specialty Start Date End Date Joseph Hernandez MD [address] [place] [id number] PCP - General FAMILY PRACTICE 11/23/19 documented as of this encounter
--- OUTSIDE RECORDS SUMMARY | 2024-08-05 05:13 | XMS_ITS | Encounter Summary ---
Author Organization [facility] Address [address] [place] [address]. [place] [address] [place] [address] Care Team Providers Care Chemistry Professor Name Role Phone Joseph Hernandez MD Primary Care Provider [phone] Reason for Visit * Reason Comments Lab (SCAN) Encounter Details Date Type Department Care Team (Late st Contact Info) Description 02/28/2022 Scan [facility] [address] [place] [address] Scanned, Documents Lab (SCAN) Social History [...] 02/07/2022 us Documents Scanned SCANNING Final Result [facility] documented in this encounter Visit Diagnoses Not on filedocumented in this encounter Care Teams Chemistry Professor Relationship Specialty Start Date End Date Joseph Hernandez MD [address] [place] [address] PCP - General FAMILY PRACTICE 11/23/19 documented as of this encounter
--- OUTSIDE RECORDS SUMMARY | 2024-08-05 05:13 | XMS_ITS | Encounter Summary ---
Author Organization [facility] - [facility] Address [address] [place] [address]. [place] [address] [place] [address] Care Team Providers Care Loop Cutter Name Role Phone Joseph Hernandez MD Primary Care Provider [phone] Encounter Details Date Type Department Care Team ([facility] st Contact Info) Description 02/08/2022 Scan [facility] [address] [place] [phone] Scanned, Documents Social History Tobacco Use Types [...] on filedocumented in this encounter Care Teams Loop Cutter Relationship Specialty Start Date End Date Joseph Hernandez MD [address] [place] [address] PCP - General FAMILY PRACTICE 11/23/19 documented as of this encounter
--- OUTSIDE RECORDS SUMMARY | 2024-08-05 05:14 | XMS_ITS | Encounter Summary ---
Author Organization [facility] Address [address] [place] [address]. [place] [address] [place] [address] Care Team Providers Care Boots And Shoes Supervisor Name Role Phone Joseph Hernandez MD Primary Care Provider [phone] Encounter Details Date Type Department Care Team (Late st Contact Info) Description 01/11/2020 Orders Only [facility] [address] [place] [address] Adonis Khoury MD Social History [...] 23.0(H) <11.9 MG/DL 01/11/2020 2:21 PM CDT [facility] CREATININE (U) 39.9 MG/DL 01/11/2020 2:21 PM CDT [facility] Comment:REFERENCE RANGE NOT ESTABLISHED PROTEIN/CREATINI NE RATIO MG/MG 0.6 01/11/2020 2:21 PM CDT [facility] Comment:CALCULATED VALUE. ABHIJEET REFERENCE RANGE HAS NOT BEEN ESTABLISHED. URINE SPECIMEN / Unknown 01/11/2020 11:30 AM CDT Adonis Khoury MD URINE ORDERABLES Final Result [facility] [address] [place] [address], * (ABNORMAL) URINALYSIS (01/11/2020 11:30 AM CDT) COLOR (U) YELLOW 01/11/2020 11:55 AM CDT [facility] TRANSPARENCY CLEAR 01/11/2020 11:55 AM CDT [facility] SPECIFIC GRAVITY (U) 1.025 1.000 - 1.025 01/11/2020 11:55 AM CDT [facility] U PH 6.0 5.0 - 8.0 01/11/2020 11:55 AM CDT [facility] LEUKOCYTES (U) NEGATIVE NEGATIVE 01/11/2020 11:55 AM CDT [facility] NITRITES NEGATIVE NEGATIVE 01/11/2020 11:55 AM CDT [facility] PROTEIN (U) TRACE(A) NEGATIVE 01/11/2020 11:55 AM CDT [facility] URINE GLUCOSE NEGATIVE NEGATIVE 01/11/2020 11:55 AM CDT [facility] KETONES MG/DL (U) NEGATIVE NEGATIVE 01/11/2020 11:55 AM CDT [facility] UROBILINOGEN 0.2 <1.0 EU/DL 01/11/2020 11:55 AM CDT [facility] BILIRUBIN (U) NEGATIVE NEGATIVE 01/11/2020 11:55 AM CDT [facility] BLOOD (U) NEGATIVE NEGATIVE 01/11/2020 11:55 AM CDT [facility] WBC/HPF 0-5 0 - 5 /HPF 01/11/2020 12:20 PM CDT [facility] EPI/HPF MANY /LPF 01/11/2020 11:55 AM CDT [facility] BACTERIA (U) TRACE /HPF 01/11/2020 11:55 AM CDT [facility] URINE SPECIMEN OBTAINED BY CLEAN CATCH PROCEDURE / Unknown 01/11/2020 11:30 AM CDT Adonis Khoury MD URINE ORDERABLES Final Result [facility] [address] [place] [address], * (ABNORMAL) RENAL FUNCTION PANEL (01/11/2020 11:30 AM CDT) SODIUM S/P/B 141 136 - 145 MMOL/L 01/11/2020 11:59 AM CDT [facility] POTASSIUM S/P/B 4.4 3.5 - 5.1 MMOL/L 01/11/2020 11:59 AM CDT [facility] CHLORIDE S/P/B 102 98 - 107 MMOL/L 01/11/2020 11:59 AM CDT [facility] CO2 30.7 21.0 - 32.0 MMOL/L 01/11/2020 11:59 AM CDT [facility] GLUCOSE 88 70 - 99 MG/DL 01/11/2020 11:59 AM CDT [facility] Comment: FASTING GLUCOSE 100 TO 125 MG/DL IS CONSISTENT WITH IMPAIRED FASTING GLUCOSE. FASTING GLUCOSE >125 MG/DL IS CONSISTENT WITH DIABETES. RANDOM GLUCOSE >200 MG/DL WITH HYPERGLYCEMIC SYMPTOMS IS CONSISTENT WITH DIABETES. PER ADA GUIDELINES BUN 15 6 - 24 MG/DL 01/11/2020 11:59 AM CDT [facility] CREATININE S/P/B 0.64 0.55 - 1.02 MG/DL 01/11/2020 11:59 AM CDT [facility] CALCIUM S/P/B 9.8 8.4 - 10.5 MG/DL 01/11/2020 11:59 AM CDT [facility] ALBUMIN S/P/B 3.9 3.4 - 5.0 G/DL 01/11/2020 11:59 AM CDT [facility] PHOSPHORUS 4.0 2.6 - 4.7 MG/DL 01/11/2020 2:17 PM CDT [facility] ANION GAP 8.3 5.0 - 15.0 MMOL/L 01/11/2020 11:59 AM CDT [facility] OSMOLALITY (CALC) 292 MOSM/KG 020 11:59 AM CDT [facility] Comment:REFERENCE RANGE NOT ESTABLISHED EGFR NON-AFR. AMER. 88(L) >89 ML/MIN/1. 73 M2 01/11/2020 11:59 AM CDT [facility] EGFR AFR. AMER. >90 >89 ML/MIN/1. 73 M2 01/11/2020 11:59 AM CDT [facility] GFR NOTES GFR REFERENCE S: 01/11/2020 11:59 AM CDT [facility] Comment: THE ESTIMATED GFR IS [...] CDT Adonis Khoury MD LABORATORY Final Result [facility] [address] [place] [address], * (ABNORMAL) CBC W/DIFF AUTOMATED (01/11/2020 11:30 AM CDT) WBC 8.0 4.5 - 10.8 x10'3/uL 01/11/2020 11:48 AM CDT [facility] RBC 4.68 4.10 - 5.40 x10'6/uL 01/11/2020 11:48 AM CDT [facility] HGB 14.5 12.0 - 16.0 G/DL 01/11/2020 11:48 AM CDT [facility] HCT 45.2 36.0 - 47.0 % 01/11/2020 11:48 AM CDT [facility] MCV 96.6 78.0 - 100.0 FL 01/11/2020 11:48 AM CDT [facility] MCH 31.0 27.0 - 31.0 PG 01/11/2020 11:48 AM CDT [facility] MCHC 32.1(L) 33.0 - 36.0 G/DL 01/11/2020 11:48 AM CDT [facility] RDW 13.7 11.5 - 14.5 % 01/11/2020 11:48 AM CDT [facility] PLT 217 150 - 350 x10'3/uL 01/11/2020 11:48 AM CDT [facility] MPV 11.2(H) 7.4 - 10.4 FL 01/11/2020 11:48 AM CDT [facility] DIFFERENTIAL COMMENT NORMAL REFERENCE RANGE NOT ESTABLISHED FOR THE PROPORTIONAL LEUKOCYTE DIFFERENTIAL. 01/11/2020 11:48 AM CDT [facility] SEG NEUTROPHILS 50.8 % 0 11:48 AM CDT [facility] LYMPHOCYTES 33.6 % 01/11/2020 11:48 AM CDT [facility] MONOCYTES 10.8 % 01/11/2020 11:48 AM CDT [facility] EOSINOPHILS 4.2 % 01/11/2020 11:48 AM CDT [facility] BASOPHILS 0.4 % 01/11/2020 11:48 AM CDT [facility] IMMATURE GRANS % 0.2 % 01/11/20 20 11:48 AM CDT [facility] NRBC 0.0 % 01/11/2020 11:48 AM CDT [facility] ABS. NEUTROPHILS 4.07 1.60 - 8.30 x10'3/uL 01/11/2020 11:48 AM CDT [facility] ABS. LYMPHOCYTES 2.70 0.80 - 4.70 x10'3/uL 01/11/2020 11:48 AM CDT [facility] ABS. MONOCYTES 0.87 0.00 - 1.50 x10'3/uL 01/11/2020 11:48 AM CDT [facility] ABS. EOSINOPHILS 0.34 0.00 - 0.40 x10'3/uL 01/11/2020 11:48 AM CDT [facility] ABS. BASOPHILS 0.03 0.00 - 0.20 x10'3/uL 01/11/2020 11:48 AM CDT [facility] ABS. IMMATURE GRANULOCYTES 0.02 0.00 - 0.03 x10'3/uL 01/11/2020 11:48 AM CDT [facility] ABS. NUCLEATED RBC'S 0.00 0.00 x10'3/uL 01/11/2020 11:48 AM CDT [facility] 01/11/2020 11:3 0 AM CDT us Adonis Khoury MD LABORATORY Final Result [facility] [address] [place] [address], documented in this encounter Visit Diagnoses Diagnosis Proteinuria- Primary documented in this encounter Care Teams Boots And Shoes Supervisor Relationship Specialty Start Date End Date Joseph Hernandez MD [address] [place] [address] PCP - General FAMILY PRACTICE 11/23/19 documented as of this encounter
--- OUTSIDE RECORDS SUMMARY | 2024-08-05 05:14 | XMS_ITS | Encounter Summary ---
Author Organization [facility] Address [address] [place] [address]. [place] [address] [place] [address] Care Team Providers Care Etcher Aircraft Name Role Phone Joseph Hernandez MD Primary Care Provider [phone] Encounter Details Date Type Department Care Team ([facility] st Contact Info) Description 01/19/2020 Orders Only [facility] [address] [place] [address] Adonis Khoury MD Social History [...] disease documented in this encounter Care Teams Etcher Aircraft Relationship Specialty Start Date End Date Joseph Hernandez MD [address] [place] [address] PCP - General FAMILY PRACTICE 11/23/19 documented as of this encounter
--- OUTSIDE RECORDS SUMMARY | 2024-08-05 05:14 | XMS_ITS | Encounter Summary ---
Author Organization [facility] Address [address] [place] [address]. [place] [address] [place] [address] Care Team Providers Care Deputy Sheriff K9 Handler Name Role Phone Unavailable Primary Care Provider Unavailabl e Encounter Details Date Type Department Care Team (Latest Contact Info) Description 02/17/2015 Abstract [facility] [place] [facility] Social History Tobacco Use Types [...]
--- OUTSIDE RECORDS SUMMARY | 2024-08-05 05:14 | XMS_ITS | Encounter Summary ---
Author Organization [facility] Address [address] [place] [address]. [place] [address] [place] [address] Care Team Providers Care Dramatic Agent Name Role Phone Unavailable Primary Care Provider Unavailabl e Encounter Details Date Type Department Care Team (Late st Contact Info) Description 03/15/[address] [facility] [place] [address] Ferdinand Cooper MD Social History Tobacco Use [...]
--- OUTSIDE RECORDS SUMMARY | 2024-08-05 05:14 | XMS_ITS | Encounter Summary ---
Author Organization [facility] Address [address] [place] [address]. [place] [address] [place] [address] Care Team Providers Care Steam Conditioning Operator Name Role Phone Unavailable Primary Care Provider Unavailabl e Encounter Details Date Type Department Care Team (Late st Contact Info) Description 03/01/2015 Abstract [facility] [address] [place] [address], [address] [place] [address] Ferdinand Cooper MD Social History [...]
--- OUTSIDE RECORDS SUMMARY | 2024-08-05 05:14 | XMS_ITS | Encounter Summary ---
Author Organization [facility] Address [address] [place] [address]. [place] [address] [place] [address] Care Team Providers Care Physics Teacher Name Role Phone Blossom Roberto MD Primary Care Provider Reason for Visit * Reason Comments Follow Up Encounter Details Date Type Department Care Team (Late st Contact Info) Description 01/11/2020 10:00 AM CDT Office Visit [facility] [address] [place] [address] Adonis Khoury MD Follow Up Social [...] Primary documented in this encounter Care Teams Physics Teacher Relationship Specialty Start Date End Date Blossom Roberto MD [address] [place] [address] PCP - General FAMILY PRACTICE 11/23/19 documented as of this encounter
--- OUTSIDE RECORDS SUMMARY | 2024-08-05 05:14 | XMS_ITS | Encounter Summary ---
Author Organization [facility] Address [address] [place] [address]. [place] [address] [place] [address] Care Team Providers Care Compounding And Finishing Supervisor Name Role Phone Unavailable Primary Care Provider Unavailabl e Encounter Details Date Type Department Care Team (Late st Contact Info) Description 03/15/2015 Abstract [facility] [address] [place] [address], [address] [place] [address] Ann-Marie Ledezma MD Social History [...] Ledezma MD - 03/15/2015 7:30 AM CDT [address] [address] Patient: ELLEN IBARRA Med Rec#: [id number] Birthdate: 1945 Admit/Svce Date: 03/15/2015 Disch Date: Attending Md: ANN-MARIE LEDEZMA MD OPERATIVE REPORT PATIENT: Ellen Ibarra : 1945 MR #: [id number], [address] COLONOSCOPY PROCEDURE REPORT EXAM DATE: 03/15/2015 PATIENT NAME: Ellen Ibarra MR #: [id number] BIRTHDATE: 1945 ATTENDING: Ann-Marie Ledezma MD STATUS: [...] revealed no abnormalities of the rectum. The [employer] Colon Scope s/n A247 endoscope was introduced [...] AM cc: PATIENT NAME: Ellen Ibarra MR#: [id number] RO/gid [id number] E-Signed By D: Ann-Marie Ledezma MD 03/15/2015 09:25 A A [id number] cc: Ann-Marie Ledezma MD documented in this encounter Plan of Treatment Not on file documented as of this encounter Visit Diagnoses Not on filedocumented in this encounter
--- OUTSIDE RECORDS SUMMARY | 2024-08-05 05:14 | XMS_ITS | Encounter Summary ---
Author Organization [facility] - [facility] Address [address] [place] [address]. [place] [address] [place] [address] Care Team Providers Care Openstack Developer Name Role Phone Joseph Hernandez MD Primary Care Provider [phone] Reason for Visit * Reason Comments Lab (SCAN) Encounter Details Date Type Department Care Team ([facility] st Contact Info) Description 11/16/2019 Scan [facility] [address] [place] [phone] Scanned, Documents Lab (SCAN) Social History Tobacco [...] 11/16/2019 us Documents Scanned SCANNING Final Result [facility] documented in this encounter Visit Diagnoses Not on filedocumented in this encounter Care Teams Openstack Developer Relationship Specialty Start Date End Date Joseph Hernandez MD [address] [place] [address] PCP - General FAMILY PRACTICE 11/23/19 documented as of this encounter
--- OUTSIDE RECORDS SUMMARY | 2024-08-05 05:14 | XMS_ITS | Encounter Summary ---
Author Organization [facility] - [facility] Address [address] [place] [address]. [place] [address] [place] [address] Care Team Providers Care Butadiene Converter Operator Name Role Phone Joseph Hernandez MD Primary Care Provider [phone] Encounter Details Date Type Department Care Team ([facility] st Contact Info) Description 01/19/2020 Orders Only [facility] [address] [place] [id number] Adonis Khoury MD Social History Tobacco Use [...] Proteinuria documented in this encounter Care Teams Butadiene Converter Operator Relationship Specialty Start Date End Date Joseph Hernandez MD [address] [place] [address] PCP - General FAMILY PRACTICE 11/23/19 documented as of this encounter
--- OUTSIDE RECORDS SUMMARY | 2024-08-05 05:14 | XMS_ITS | Encounter Summary ---
Author Organization [facility] Address [address] [place] [address]. [place] [address] [place] [address] Care Team Providers Care Viscosity Inspector Name Role Phone Joseph Hernandez MD Primary Care Provider [phone] Encounter Details Date Type Department Care Team (Latest Contact Info) Description 01/11/2020 11:00 AM CDT - 01/11/2020 11:59 PM CDT Hospital Encounter [facility] [address] [place] [address] Adonis Khoury MD Discharge Disposition: Home or [...] 23.0(H) <11.9 MG/DL 01/11/2020 2:21 PM CDT [facility] CREATININE (U) 39.9 MG/DL 01/11/2020 2:21 PM CDT [facility] Comment:REFERENCE RANGE NOT ESTABLISHED PROTEIN/CREATINI NE RATIO MG/MG 0.6 01/11/2020 2:21 PM CDT [facility] Comment:CALCULATED VALUE. [facility] RE[facility] HAS NOT BEEN ESTABLISHED. URINE SPECIMEN / Unknown 01/11/2020 11:30 AM CDT us Adonis Khoury MD URINE ORDERABLES Final Result [facility] [id number], * (ABNORMAL) URINALYSIS (01/11/2020 11:30 AM CDT) COLOR (U) YELLOW 01/11/2020 11:55 AM CDT [facility] TRANSPARENCY CLEAR 01/11/2020 11:55 AM CDT [facility] SPECIFIC GRAVITY (U) 1.025 1.000 - 1.025 01/11/2020 11:55 AM CDT [facility] U PH 6.0 5.0 - 8.0 01/11/2020 11:55 AM CDT [facility] LEUKOCYTES (U) NEGATIVE NEGATIVE 01/11/2020 11:55 AM CDT [facility] NITRITES NEGATIVE NEGATIVE 01/11/2020 11:55 AM CDT [facility] PROTEIN (U) TRACE(A) NEGATIVE 01/11/2020 11:55 AM CDT [facility] URINE GLUCOSE NEGATIVE NEGATIVE 01/11/2020 11:55 AM CDT [facility] KETONES MG/DL (U) NEGATIVE NEGATIVE 01/11/2020 11:55 AM CDT [facility] UROBILINOGEN 0.2 <1.0 EU/DL 01/11/2020 11:55 AM CDT [facility] BILIRUBIN (U) NEGATIVE NEGATIVE 01/11/2020 11:55 AM CDT [facility] BLOOD (U) NEGATIVE NEGATIVE 01/11/2020 11:55 AM CDT [facility] WBC/HPF 0-5 0 - 5 /HPF 01/11/2020 12:20 PM CDT [facility] EPI/HPF MANY /LPF 01/11/2020 11:55 AM CDT [facility] BACTERIA (U) TRACE /HPF 01/11/2020 11:55 AM CDT [facility] URINE SPECIMEN OBTAINED BY CLEAN CATCH PROCEDURE / Unknown 01/11/2020 11:30 AM CDT Adonis Khoury MD URINE ORDERABLES Final Result [facility] [address] [place] [address], * (ABNORMAL) RENAL FUNCTION PANEL (01/11/2020 11:30 AM CDT) SODIUM S/P/B 141 136 - 145 MMOL/L 01/11/2020 11:59 AM CDT [facility] POTASSIUM S/P/B 4.4 3.5 - 5.1 MMOL/L 01/11/2020 11:59 AM CDT [facility] CHLORIDE S/P/B 102 98 - 107 MMOL/L 01/11/2020 11:59 AM CDT [facility] CO2 30.7 21.0 - 32.0 MMOL/L 01/11/2020 11:59 AM CDT [facility] GLUCOSE 88 70 - 99 MG/DL 01/11/2020 11:59 AM CDT [facility] Comment: FASTING GLUCOSE 100 TO 125 MG/DL IS CONSISTENT WITH IMPAIRED FASTING GLUCOSE. FASTING GLUCOSE >125 MG/DL IS CONSISTENT WITH DIABETES. RANDOM GLUCOSE >200 MG/DL WITH HYPERGLYCEMIC SYMPTOMS IS CONSISTENT WITH DIABETES. PER ADA GUIDELINES BUN 15 6 - 24 MG/DL 01/11/2020 11:59 AM T [facility] CREATININE S/P/B 0.64 0.55 - 1.02 MG/DL 01/11/2020 11:59 AM T [facility] CALCIUM S/P/B 9.8 8.4 - 10.5 MG/DL 01/11/2020 11:59 AM T [facility] ALBUMIN S/P/B 3.9 3.4 - 5.0 G/DL 01/11/2020 11:59 AM T [facility] PHOSPHORUS 4.0 2.6 - 4.7 MG/DL 01/11/2020 2:17 PM T [facility] ANION GAP 8.3 5.0 - 15.0 MMOL/L 01/11/2020 11:59 AM [facility] OSMOLALITY (CALC) 292 MOSM/KG 020 11:59 AM T [facility] Comment:REFERENCE RANGE NOT ESTABLISHED EGFR NON-AFR. AMER. 88(L) >89 ML/MIN/1. 73 M2 01/11/2020 11:59 AM [facility] EGFR AFR. AMER. >90 >89 ML/MIN/1. 73 M2 01/11/2020 11:59 AM [facility] GFR NOTES GFR REFERENCE S: 01/11/2020 11:59 AM [facility] Comment: THE ESTIMATED GFR IS [...] CDT Adonis Khoury MD LABORATORY Final Result [facility] [address] [place] [address], * (ABNORMAL) CBC W/DIFF AUTOMATED (01/11/2020 11:30 AM CDT) WBC 8.0 4.5 - 10.8 x10'3/uL 01/11/2020 11:48 AM CDT [facility] RBC 4.68 4.10 - 5.40 x10'6/uL 01/11/2020 11:48 AM CDT [facility] HGB 14.5 12.0 - 16.0 G/DL 01/11/2020 11:48 AM CDT [facility] HCT 45.2 36.0 - 47.0 % 01/11/2020 11:48 AM CDT [facility] MCV 96.6 78.0 - 100.0 FL 01/11/2020 11:48 AM CDT [facility] MCH 31.0 27.0 - 31.0 PG 01/11/2020 11:48 AM CDT [facility] MCHC 32.1(L) 33.0 - 36.0 G/DL 01/11/2020 11:48 AM CDT [facility] RDW 13.7 11.5 - 14.5 % 01/11/2020 11:48 AM CDT [facility] PLT 217 150 - 350 x10'3/uL 01/11/2020 11:48 AM CDT [facility] MPV 11.2(H) 7.4 - 10.4 FL 01/11/2020 11:48 AM CDT [facility] DIFFERENTIAL COMMENT NORMAL REFERENCE RANGE NOT ESTABLISHED FOR THE PROPORTIONAL LEUKOCYTE DIFFERENTIAL. 01/11/2020 11:48 AM CDT [facility] SEG NEUTROPHILS 50.8 % 0 11:48 AM CDT [facility] LYMPHOCYTES 33.6 % 01/11/2020 11:48 AM CDT [facility] MONOCYTES 10.8 % 01/11/2020 11:48 AM CDT [facility] EOSINOPHILS 4.2 % 01/11/2020 11:48 AM CDT [facility] BASOPHILS 0.4 % 01/11/2020 11:48 AM CDT [facility] IMMATURE GRANS % 0.2 % 01/11/20 20 11:48 AM CDT [facility] NRBC 0.0 % 01/11/2020 11:48 AM CDT [facility] ABS. NEUTROPHILS 4.07 1.60 - 8.30 x10'3/uL 01/11/2020 11:48 AM CDT [facility] ABS. LYMPHOCYTES 2.70 0.80 - 4.70 x10'3/uL 01/11/2020 11:48 AM CDT [facility] ABS. MONOCYTES 0.87 0.00 - 1.50 x10'3/uL 01/11/2020 11:48 AM CDT [facility] ABS. EOSINOPHILS 0.34 0.00 - 0.40 x10'3/uL 01/11/2020 11:48 AM CDT [facility] ABS. BASOPHILS 0.03 0.00 - 0.20 x10'3/uL 01/11/2020 11:48 AM CDT [facility] ABS. IMMATURE GRANULOCYTES 0.02 0.00 - 0.03 x10'3/uL 01/11/2020 11:48 AM CDT [facility] ABS. NUCLEATED RBC'S 0.00 0.00 x10'3/uL 01/11/2020 11:48 AM CDT [facility] 01/11/2020 11:3 0 AM CDT Adonis Khoury MD LABORATORY Final Result [facility] [address] [place] [id number], documented in this encounter Visit Diagnoses Diagnosis Proteinuria documented in this encounter Care Teams Viscosity Inspector Relationship Specialty Start Date End Date Joseph Hernandez MD [address] [place], [place] [id number] PCP - General FAMILY PRACTICE 11/23/19 documented as of this encounter
--- OUTSIDE RECORDS SUMMARY | 2024-08-05 05:14 | XMS_ITS | Encounter Summary ---
Author Organization [facility] Address [address] [place] [address]. [place] [address] [place] [address] Care Team Providers Care Environmental Geologist Name Role Phone Joseph Hernandez MD Primary Care Provider Reason for Visit * Reason Comments Lab (SCAN) Encounter Details Date Type Department Care Team ([facility] st Contact Info) Description 04/20/2020 Scan [facility] [address] [place] [address] [id number] Scanned, Documents Lab (SCAN) Social History Tobacco [...] 04/20/2020 us Documents Scanned SCANNING Final Result [facility] documented in this encounter Visit Diagnoses Not on filedocumented in this encounter Care Teams Environmental Geologist Relationship Specialty Start Date End Date Joseph Hernandez MD [address] [place] [address] PCP - General FAMILY PRACTICE 11/23/19 documented as of this encounter
--- OUTSIDE RECORDS SUMMARY | 2024-08-05 05:14 | XMS_ITS | Encounter Summary ---
Author Organization [facility] Address [address] [place] [address]. [place] [address] [place] [address] Care Team Providers Care Community Artist Name Role Phone Unavailable Primary Care Provider Unavailabl e Encounter Details Date Type Department Care Team (Latest Contact Info) Description 01/27/2015 Abstract [facility] Medical Group Social History Tobacco Use Types [...]
--- OUTSIDE RECORDS SUMMARY | 2024-08-05 05:14 | XMS_ITS | Encounter Summary ---
Author Organization [facility] Address [address] [place] [address]. [place], [place] [address] [place] [address] Care Team Providers Care Leadite Man Name Role Phone Joseph Hernandez MD Primary Care Provider [phone] Encounter Details Date Type Department Care Team [...] on filedocumented in this encounter Care Teams Leadite Man Relationship Specialty Start Date End Date Joseph Hernandez MD [address] [place] [address] PCP - General FAMILY PRACTICE 11/23/19 documented as of this encounter
--- OUTSIDE RECORDS SUMMARY | 2024-08-05 05:14 | XMS_ITS | Encounter Summary ---
Author Organization [facility] Address [address] [place] [address]. [place] [address] [place] [address] Care Team Providers Care Traveling Passenger Agent Name Role Phone Joseph Hernandez MD Primary Care Provider [phone] Encounter Details Date Type Department Care Team ([facility] st Contact Info) Description 12/16/2019 Scan [facility] [address] [place] [id number] Scanned, Documents Social History Tobacco Use Types [...] on filedocumented in this encounter Care Teams Traveling Passenger Agent Relationship Specialty Start Date End Date Joseph Hernandez MD [address] [place] [address] PCP - General FAMILY PRACTICE 11/23/19 documented as of this encounter
--- OUTSIDE RECORDS SUMMARY | 2024-08-05 05:14 | XMS_ITS | Encounter Summary ---
Author Organization [facility] Address [address] [place] [address]. [place] [address] [place] [address] Care Team Providers Care Banquet Pilot Name Role Phone Unavailable Primary Care Provider Unavailabl e Encounter Details Date Type Department Care Team (Late st Contact Info) Description 03/23/2015 Abstract [facility] Medical Group Surgical Specialists [facility] [facility], [address]nd [place] [address] Ferdinand Cooper MD Social History [...] 1. Hydrochlorothiazide 25 MG Oral Tablet; Therapy: (Recorded:[id number]) to Recorded 2. Losartan Potassium 50 MG Oral Tablet; Therapy: (Recorded:[id number]) to Recorded 3. Pravachol 10 MG TABS; Therapy: (Recorded:[id number]) to Recorded 4. Suprep Bowel Prep Oral Solution; DILUTE CONTENTS AND USE DIRECTED FOR BOWEL PREP; Therapy: [id number] to (Last Rx:[id number]) Ordered 5. Triamcinolone Acetonide 0.1 % External Cream; Therapy: (Recorded:[id number]) to Recorded Allergies 1. No Known Drug Allergies Assessment rectal hyperplastic polyp. Plan colonoscopy in 10 years unless symptomatic.. Discussion/Summary nature of a hyperplastic polyp, need for colonoscopy in 10 years, I dressed this patient in details. Patient verbalized understanding nature of discussion and would follow plan. Signatures Electronically signed by : Ferdinand Cooper M.D.; Mar 23 2015 1:59PM WAIST CUTTER (Author) documented in this encounter Plan of Treatment Not on file documented as of this encounter Visit Diagnoses Not on filedocumented in this encounter
--- OUTSIDE RECORDS SUMMARY | 2024-08-05 05:14 | XMS_ITS | Encounter Summary ---
Author Organization [facility] Address [address] [place] [address]. [place] [address] [place] [address] Care Team Providers Care Procurement Professional Name Role Phone Unavailable Primary Care Provider Unavailabl e Encounter Details Date Type Department Care Team (Latest Contact Info) Description 03/15/2015 Abstract [facility] Medical Group Ferdinand Cooper MD [...] Pathology (03/15/2015 12:00 AM CDT) COPATH REPORT [facility]PART[facility] OF [facility]ORAT[facility]ICINE [address] [place] [address] SURG(NOTE) Patient Name: ELLEN IBARRA MR#: [id number] Specimen #[id number] Source: Rectum, polyp Clinical History: Referring Facility: ??#[facility] MRN: ??#[id number] Acct: ??#[id number] ?? Preoperative Diagnosis: Screening colonoscopy. Postoperative Diagnosis: [...] y Signed Out ? Chong Salas, ??M.D. ?4110 [facility] TO EPIC CONVERSION 03/15/2015 03/15/2015 Narrative [facility] TO EPIC CONVERSION - 03/15/2015 2:31 PM CDT Result Communication: No patient communication needed at this time us Ferdinand Cooper MD PATHOLOGY/CYTOLOGY ORDERABLES Final Result [facility] CON[facility] documented in this encounter Visit Diagnoses Not on filedocumented in this encounter
--- OUTSIDE RECORDS SUMMARY | 2024-08-05 05:14 | XMS_ITS | Encounter Summary ---
Author Organization [facility] Address [address] [place] [address]. [place] [address] [place] [address] Care Team Providers Care Doctor Of Pharmacy Name Role Phone Unavailable Primary Care Provider Unavailabl e Encounter Details Date Type Department Care Team (Latest Contact Info) Description 08/05/2001 Abstract [facility] [...]
--- OUTSIDE RECORDS SUMMARY | 2024-08-05 05:14 | XMS_ITS | Encounter Summary ---
Author Organization [facility] Address [address] [place] [address]. [place] [address] [place] [address] Care Team Providers Care Cyber Security Architect Name Role Phone Unavailable Primary Care Provider Unavailabl e Encounter Details Date Type Department Care Team (Late st Contact Info) Description 02/16/2015 Abstract [facility] Medical Group Surgical Specialists [facility], [address]nd [place] [address] Ferdinand Cooper MD Social History [...] 1. Hydrochlorothiazide 25 MG Oral Tablet; Therapy: (Recorded:[id number]) to Recorded 2. Losartan Potassium 50 MG Oral Tablet; Therapy: (Recorded:[id number]) to Recorded 3. Pravachol 10 MG TABS; Therapy: (Recorded:[id number]) to Recorded 4. Triamcinolone Acetonide 0.1 % External Cream; Therapy: (Recorded:[id number]) to Recorded Allergies 1. No Known Drug Allergies Vitals Recorded: [id number] 08:56AM Systolic 136 Diastolic 82 Height 5 [...] Ferdinand Cooper M.D.; Feb 16 2015 9:35AM MACHINE QUILT STUFFER (Author) documented in this encounter Plan of Treatment Not on file documented as of this encounter Visit Diagnoses Not on filedocumented in this encounter
--- OUTSIDE RECORDS SUMMARY | 2024-08-05 05:14 | XMS_ITS | Encounter Summary ---
Author Organization [facility] Address [facility] [place] [address] [place] [address] Care Team Providers Care Railroad Accountant Name Role Phone Unavailable Primary Care Provider Unavailabl e Encounter Details Date Type Department Care Team (Late st Contact Info) Description 03/15/2015 Abstract [facility] [address] [place] [address] Ferdinand Cooper MD Social History Tobacco Use [...]
== END 2024-07-29 11:25 | disposition home or self-care (01) ==
PROVIDERS: Emergency Provider Emergency Medicine; PCP Family Medicine
DX: J44.0 Chronic obstructive pulmonary disease with (acute) lower respiratory infection (principal); J21.0 Acute bronchiolitis due to respiratory syncytial virus; J44.1 Chronic obstructive pulmonary disease with (acute) exacerbation; R06.82 Tachypnea, not elsewhere classified; I48.91 Unspecified atrial fibrillation; Z79.01 Long term (current) use of anticoagulants; F17.210 Nicotine dependence, cigarettes, uncomplicated; Z20.822 Contact with and (suspected) exposure to COVID-19
CPT/HCPCS: 36415; 71046; 80053; 83605; 83880; 84484; 85025; 85610; 85730; 87040; 87637; 93005; 96374; 99284; J2919

== ENCOUNTER 2024-11-16 08:25 | Outpatient (CLI) | payer MEDICARE, SELFPAY ==
[2024-11-16 08:38] LABS: Basophils Absolute Auto 0.03 K/mm3 (0.00-0.10); Basophils Percent Auto 0.4 % (0.0-1.0); Eosinophils Absolute Auto 0.27 K/mm3 (0.02-0.50); Eosinophils Percent Auto 3.2 % (1.0-6.0); Hematocrit 41.9 % (35.0-42.0); Hemoglobin 12.7 g/dL (11.7-13.8); Immature Granulocyte Absolute 0.03 K/mm3 (0.00-0.00); Immature Granulocyte Percent A 0.4 % (0.0-0.0); Lymphocytes Absolute Auto 2.41 K/mm3 (1.10-4.50); Lymphocytes Percent Auto 28.2 % (18.0-42.0); Mean Corpuscular HGB Conc 30.3 g/dL (32-36); Mean Corpuscular Hemoglobin 28.1 pg (27.0-31.0); Mean Corpuscular Volume 92.7 fL (78.0-102.0); Mean Platelet Volume 10.2 fl (9.2-11.8); Monocytes Absolute Auto 0.92 K/mm3 (0.10-0.90); Monocytes Percent Auto 10.7 % (2.0-11.0); Neutrophils Percent Auto 57.1 % (50.0-70.0); Platelet Count Result 265 K/mm3 (150-420); Red Blood Count 4.52 M/mm3 (4.20-5.40); Red Cell Distribution Width 15.7 % (11.6-14.4); White Blood Count 8.6 K/mm3 (4.8-10.8)
--- OUTSIDE RECORDS SUMMARY | 2024-11-16 08:58 | XMS_ITS | Clinical Summary ---
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 [...] 2010 Dexa Scan (General) 2010 Pneumococcal Vaccine: 50+ Years (2 of 2 - PPSV23) 12/12/2015 10/17/2015 RSV Immunization or 60+ Years (1 - 1-dose 75+ series) 2020 COVID-19 Vaccine (3 - 2023-2 5 season) 2024 09/23/2020, 09/02/2020 Meningococcal B Vaccine Aged Out No l onger eligible based on patient's age to complete this topic Meningococcal Vaccine Aged Out No estephania selena eligible based on patient's age to complete this topic RSV Immunizations Under 20 Months Aged Out No longer eligible b ased on patient's age to complete this topic Insurance AET AETNA Care Teams Disaster Recovery Specialist Relationship Specialty Start Date End Date Joseph Hernandez MD [address] [place] [address] PCP - General FAMILY PRACTICE 11/23/19
[2024-11-16 09:00] LABS: Hemoglobin A1C 6.4 % (<5.7)
[2024-11-16 09:15] LABS: Alanine Aminotransferase 20 U/L (14-59); Albumin Level 3.6 g/dL (3.4-5.0); Alkaline Phosphatase 112 U/L (46-116); Anion Gap 7 mmol/L (4-12); Aspartate Amino Transferase 12 U/L (15-37); Bilirubin,Total 0.3 mg/dL (0.00-1.00); Blood Urea Nitrogen 19 mg/dL (7-18); Calcium 9.4 mg/dL (8.5-10.1); Carbon Dioxide 31 mmol/L (21-32); Chloride 105 mmol/L (98-108); Estimated Glomerular Filt Rate > 60; Glucose 115 mg/dL (70-99); Osmolality Calculated 299 mOsm/kg (285-295); Potassium 4.7 mmol/L (3.5-5.1); Sodium 143 mmol/L (136-145); Thyroid Stimulating Hormone 1.47 uIU/mL (0.36-3.74); Total Protein 7.1 g/dL (6.4-8.2)
== END 2024-11-16 08:26 | disposition home or self-care (01) ==
LOC: CHSLAB 08:27
PROVIDERS: PCP Family Medicine; Visit Provider Family Medicine
DX: I10 Essential (primary) hypertension (principal); R73.01 Impaired fasting glucose
CPT/HCPCS: 36415; 80053; 83036; 84443; 85025

== ENCOUNTER 2025-01-11 08:11 | Outpatient (CLI) | payer MEDICARE, SELFPAY ==
--- NOTE | ~2025-01-11 | MM_ITS ---
EXAMINATION: MM screening karly BI w jaye HISTORY: Screening TECHNIQUE: Craniocaudal and mediolateral oblique 3-D tomosynthesis images were obtained and synthetic 2-D images were generated. CAD analysis was submitted and interpreted. COMPARISON: Comparison to multiple prior studies sequentially, with oldest reviewed study dated 11/13. BREAST PARENCHYMAL COMPOSITION: Not dense: There are scattered areas of fibroglandular density. FINDINGS: There is no evidence of suspicious mass, calcification, or architectural distortion to sugg est malignancy in either breast. There has been no suspicious interval change. IMPRESSION: 1. No mammographic evidence of malignancy. 2. Recommend routine screening mammography in one year. BI-RADS Category 1: Negative Reviewed, dictated and finalized at location A.
== END 2025-01-11 08:12 | disposition home or self-care (01) ==
LOC: CHSIMG 08:11
PROVIDERS: PCP Family Medicine; Visit Provider Family Medicine
DX: Z12.31 Encounter for screening mammogram for malignant neoplasm of breast (principal)
CPT/HCPCS: 77063; 77067

== ENCOUNTER 2025-05-17 07:57 | Outpatient (CLI) | payer MEDICARE, SELFPAY ==
--- OUTSIDE RECORDS SUMMARY | 2025-05-17 08:05 | XMS_ITS | Clinical Summary ---
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 [...] 9:37 AM CDT Height 160 cm (5' 3) 11/19/2022 9:37 AM CDT Body Mass Index [...] 75+ series) 2020 COVID-19 Vaccine (3 - 2024-2 6 season) 2025 09/23/2020, 09/02/2020 Influenza Adult (#1) 2025 Meningococcal B Vaccine Aged Out No l onger eligible based on patient's age to complete this topic Meningococcal Vaccine Aged Out No estephania selena eligible based on patient's age to complete this topic RSV Immunizations Under 20 Months Aged Out No longer eligible b ased on patient's age to complete this topic [facility] AENA MEDICARE Care Teams Conduit Worker Relationship Specialty Start Date End Date Joseph Hernandez MD [address] [place] [address] PCP - General FAMILY PRACTICE 11/23/19
--- OUTSIDE RECORDS SUMMARY | 2025-05-17 08:05 | XMS_ITS | Patient Health Record ---
Author Organization [facility] Address [address] [place], [place] [address] Care Team Providers Care Commodity Buyer Name Role Phone RONNIE VUONG Unavailable [phone] Joseph Hernandez Unavailable Unavailable Reason For Referral No Information Plan Of Treatment No Information Insurance Providers Payer Name Payer Address Payer Phone Subscriber Number Group Number Insured Name Patient Relationship to Insured Coverage Start Date Coverage End Date [employer] [address] [place] [phone] [id number] ILA GAR[place] Self - patient is the insured
[2025-05-17 08:29] LABS: Hematocrit 44.9 % (35.0-42.0); Hemoglobin 14.6 g/dL (11.7-13.8); Immature Granulocyte Percent A 0.3 % (0.0-0.0); Lymphocytes Absolute Auto 1.85 K/mm3 (1.10-4.50); Mean Corpuscular HGB Conc 32.5 g/dL (32-36); Mean Corpuscular Hemoglobin 30.9 pg (27.0-31.0); Mean Corpuscular Volume 95.1 fL (78.0-102.0); Nucleated Red Blood Cells Absolute Auto 0.00 K/mm3 (0.00-0.00); Nucleated Red Blood Cells Perc 0.0 % (0-0.0); Platelet Count Result 228 K/mm3 (150-420); Red Blood Count 4.72 M/mm3 (4.20-5.40); White Blood Count 6.5 K/mm3 (4.8-10.8)
[2025-05-17 08:31] LABS: Add Urine Microscopic? YES; Appearance Urine Clear (Clear); Glucose Urine UA Negative (Negative); Leukocyte Esterase Ur Trace (Negative); Nitrate Urine Negative (Negative); Specific Grav Ur 1.015 (1.010-1.020)
[2025-05-17 08:55] LABS: Hemoglobin A1C 6.4 % (<5.7)
[2025-05-17 08:58] LABS: Alanine Aminotransferase 22 U/L (6-35); Albumin Level 4.3 g/dL (3.5-5.1); Alkaline Phosphatase 85 U/L (38-126); Anion Gap 6 mmol/L (4-12); Aspartate Amino Transferase 27 U/L (14-36); Bilirubin,Total 0.7 mg/dL (0.2-1.3); Blood Urea Nitrogen 13 mg/dL (7-17); Calcium 9.9 mg/dL (8.4-10.2); Carbon Dioxide 30 mmol/L (22-30); Chloride 101 mmol/L (98-107); Estimated Glomerular Filt Rate > 60; Glucose 120 mg/dL (65-110); Osmolality Calculated 285 mOsm/kg (285-295); Potassium 4.9 mmol/L (3.4-5.0); Sodium 137 mmol/L (137-145); Total Protein 7.6 g/dL (6.3-8.2)
[2025-05-17 09:11] LABS: MALB Creatinine Ratio 224.9 mg/g (0-30)
== END 2025-05-17 07:58 | disposition home or self-care (01) ==
LOC: CHSLAB 07:58
PROVIDERS: PCP Family Medicine; Visit Provider Family Medicine
DX: I10 Essential (primary) hypertension (principal); R73.01 Impaired fasting glucose
CPT/HCPCS: 36415; 80053; 81001; 82043; 83036; 85025